=== PATIENT | female | born 1985 | race Caucasian/White ===

== ENCOUNTER 2021-04-18 16:37 | Inpatient (IN) | payer OTHER, SELFPAY ==
--- NOTE | ~2021-04-18 | MR_ITS ---
EXAMINATION: MR ABDOMEN WITHOUT CONTRAST/MRCP CLINICAL INFORMATION: Abdominal pain. Transaminitis. COMPARISON: CT of the abdomen and pelvis and abdominal ultrasound done on 04/18/2021. Initial images of the HIDA study done prior to the MRI study. TECHNIQUE: MR abdomen is performed without gadolinium contrast using MRCP protocol. FINDINGS: LUNG BASES: The visualized lung bases are unremarkable. LIVER, GALLBLADDER, AND BILIARY TREE: The liver is normal in size, smooth in contour, and normal in signal. No focal hepatic lesion or biliary ductal dilatation is present. Multiple gallstones are present without evidence of any wall thickening or pericholecystic fluid, similar to prior studies. Common bile duct measures between 5 to 6 mm, shows progressive smooth distal tapering without evidence of any intraluminal filling defect. Specifically, no evidence of any choledocholithiasis seen. PANCREAS: Unremarkable. SPLEEN: Solitary T2 hyperintense circumscribed well-defined focal lesion is noted measuring 1.6 cm within the inferior posterior medial part of the spleen (image #9 series 6), may represent an incidental cyst versus hemangioma. ADRENAL GLANDS: Unremarkable. KIDNEYS AND URETERS: The kidneys are normal in size and shape. No hydronephrosis. No perinephric stranding. GASTROINTESTINAL TRACT: The visualized bowel loops are unremarkable. ABDOMINAL WALL: Focal bulge is noted in the periumbilical region without evidence of any herniation, better visualized on prior CT study. LYMPH NODES: No lymphadenopathy. VASCULAR: The visualized part of the aorta, inferior vena cava appear unremarkable. OTHER FINDINGS: On the hand folder images, there is a nonspecific T2 hyperintense approximately 3 cm maximum dimension mass identified within the paramedian aspect of the right mid pelvis, when correlating with the prior CT study, most consistent with an enlarged follicle-containing ovary. OSSEOUS STRUCTURES: Marrow signal normal. MR/MR MRCP IMPRESSION: 1. Cholelithiasis without any MR features of acute cholecystitis or biliary obstruction. 2. No MR evidence of choledocholithiasis. 3. Solitary 1.6 cm T2 hyperintense focal lesion within the spleen, may represent incidental cyst versus hemangioma, not optimally characterized on this nonenhanced study. 4. 3 cm maximum dimension T2 hyperintense focus seen within the right side of the mid pelvis, when correlating with prior CT study, most consistent with a right adnexal cyst/enlarged right ovarian follicle. This critical result was discussed with Dr Magana at 12:44 PM on 04/19/2021 and it was ascertained that the content and urgency of the report was understood at the time of direct communication.
--- NOTE | ~2021-04-18 | CT_ITS ---
EXAMINATION: CT ABDOMEN AND PELVIS WITHOUT CONTRAST CLINICAL INFORMATION: Epigastric pain. COMPARISON: None TECHNIQUE: Multidetector volumetric imaging was performed from the superior aspect of the liver through the pubic symphysis. Sagittal and coronal reformatted images were obtained on the technologist's workstation. This CT examination was performed using dose optimization techniques as appropriate, variously including the following: *Automated exposure control *Adjustment of mA and/or kV according to patient size (this includes techniques or standardized protocols for targeted exams where dose is matched to indication/reason for exam; i.e. extremities or head) *Use of iterative reconstruction technique DLP: 543 mGy-cm FINDINGS: LUNG BASES: The visualized lung bases are unremarkable. LIVER, GALLBLADDER, AND BILIARY TREE: The liver is normal in size, shape, and attenuation. No focal hepatic lesion or biliary ductal dilatation is present. There are small calcific gallstones within the gallbladder. No edema around the gallbladder. There is no bile duct dilatation. PANCREAS: Unremarkable. SPLEEN: Unremarkable. ADRENAL GLANDS: Unremarkable. KIDNEYS AND URETERS: The kidneys are normal in size, shape, and attenuation. No hydronephrosis, hydroureter, or calculi seen. No perinephric stranding. BLADDER: Unremarkable. GASTROINTESTINAL TRACT: The small and large bowel are unremarkable. The appendix is nonvisualized. ABDOMINAL WALL: Bulge of the anterior abdominal wall fascia without herniation of bowel. LYMPH NODES: No significant lymphadenopathy. VASCULAR: There is a small vascular calcification in the retroperitoneum anterior to the right iliopsoas muscle axial image 48/80 series 3. This is not a ureteral stone. PELVIC VISCERA: Right adnexal cyst measuring 2.8 cm. Density measurement 3 Hounsfield units. Simple fluid. OSSEOUS STRUCTURES: Unremarkable. CT/CT abdomen pelvis wo con IMPRESSION: 1. Cholelithiasis. No acute change of gallbladder. 2. Right adnexal simple cyst.
--- NOTE | ~2021-04-18 | NM_ITS ---
EXAMINATION: BILIARY TRACT IMAGING STUDY CLINICAL INDICATION: Abdominal pain. COMPARISON: CT scan of the abdomen and pelvis done on 04/18/2021, right upper quadrant abdominal ultrasound done on 04/18/2021, and MRCP done on 04/19/2021 TECHNIQUE: Scintillation camera images were obtained over the abdomen for an observation of 4 hours following the intravenous administration of 5 millicuries technetium technetium 99m labeled Mebrofenin. Initial images were obtained for 60 minutes without visualization of the biliary tree or bowel. Subsequently additional 60 minutes images were also obtained followed by 5 mm images were obtained at 4 hours post radiotracer injection. FINDINGS: There is good concentration of activity in the liver by 5 minutes post injection. Persistent homogenous distribution of the radiotracer is noted throughout the liver without evidence of any excretion of radiotracer into the biliary tree up to 4 hours post radiotracer injection. Specifically, no evidence of any visualization of the biliary tree, gallbladder or small bowel is seen throughout the examination up to 4 hours post injection. NM/NM hepatobiliary wo pharm IMPRESSION: Nonvisualized biliary tree with good visualization of the liver ( liver scan sign ) is indicative of complete biliary obstruction, either intrahepatic or extrahepatic. Please note that based on this biliary tract nuclear imaging pattern, both intra as well as extrahepatic obstruction will have indistinguishable pattern. When correlating with prior MRCP findings, the site of obstruction is likely secondary to intrahepatic cholestasis. A 24-hour follow-up imaging may also be considered for further clarification if clinically appropriate.
--- NOTE | ~2021-04-18 | US_ITS ---
EXAMINATION: US ABDOMEN LIMITED CLINICAL INFORMATION: Choledocholithiasis.. COMPARISON: CT abdomen/pelvis dated 04/18/2021 TECHNIQUE: Real-time imaging of the right upper quadrant abdominal viscera. FINDINGS: PANCREAS: Normal. LIVER: Normal. The liver is normal in size. The liver contour is normal. Parenchymal echogenicity is normal. No focal hepatic lesion. There is no intrahepatic biliary duct dilatation seen. GALLBLADDER: Multiple small stones and sludge present within the gallbladder. No gallbladder wall thickening or pericholecystic fluid. Sonographic Bowers sign is negative. COMMON BILE DUCT: Normal in caliber measuring 0.7 cm in diameter. FREE FLUID: None. US/US abdomen limited IMPRESSION: Cholelithiasis without sonographic evidence of cholecystitis.
[2021-04-18 16:55] VITALS: BP 119/79; PULSE 67; RESP 16; TEMP 37.3; O2SAT 100; BMI 31.7
--- NOTE | 2021-04-18 18:31 | ED_ITS ---
HPI - Abdominal Pain General Chief Complaint: Abdominal Pain Stated Complaint: rt abd pain Time Seen by Provider: 04/18/21 18:21 Source: patient Mode of arrival: ambulatory Limitations: no limitations History of Present Illness HPI narrative: Patient is a 36-year-old female with no significant past medical history who presents with 2 weeks of epigastric pain that radiates to her back. She states it is worse when she goes to bed and lies flat and it has been getting worse since this morning. She endorses nausea but no vomiting. She denies chest pain shortness of breath headache dizziness and diarrhea. She d enies having history of kidney stones. She states that her urine has gotten a bit darker the past day but denies any urinary symptoms. Related Data Previous Rx's Medication Instructions Recorded ondansetron HCl 8 mg tablet 8 mg PO Q12H 30 Days #60 tab 12/26/20 loratadine 10 mg tablet 10 mg PO DAILY PRN 90 Days #90 tab 02/18/21 fluticasone propionate 50 1 spray INTRANASAL DAILY #48 ml 02/21/21 mcg/actuation nasal spray,suspension Allergies Allergy/AdvReac Type Severity Reaction Status Date / Time No Known Allergies Allergy Verified 04/18/21 19:04 Review of Systems Review of Systems Yes all other systems are reviewed and are negative Physical Exam Vital Signs: Vital Signs: Last Vital Signs Temp 98.4 F 04/19/21 01:12 Pulse 79 04/19/21 01:12 Resp 18 04/19/21 01:12 BP 131/81 04/19/21 01:12 Pulse Ox 100 04/19/21 01:12 Body Mass Index 31.7 Const: General: cooperative, healthy appearing, comfortable, no acute distress and well developed Orientation/consciousness: patient oriented x3 Limitations: no limitations HENMT: Head: Yes normal to inspection Eyes: General: appearance normal, both eyes and all related structures Neck: Neck: Yes normal visual inspection and Yes full ROM Resp: Effort & Inspection: normal respiratory effort and able to speak in complete sentences Auscultation: clear to auscultation bilaterally Cardio: Rate: regular rate Rhythm: regular rhythm Heart sounds: normal S1 and S2 GI: Inspection: Yes normal to inspection Palpation (GI): Soft to palpation and Tenderness to palpation present (GI) in the epigastrum : General: Yes no CVA tenderness Back/Spine/Pelvis: Back: no CVA tenderness Skin: General skin exam: no rashes or lesions noted Neuro: General: patient oriented x3 Extrem: General: Yes normal to inspection Course Course Course Narrative: Patient is a 36-year-old female with no significant past medical history who presents with 2 weeks of epigastric pain that radiates to her back. VSS, will get UA, labs including lipase and CT Scan abd and pelvis. Reevaluation(s) Reevaluation #1: Liver labs elevated, CT showed cholelithiasis but not cholecystitis, discussed with Dr Ratliff, she ? choledocolithiasis, will get US to r/o. Time: 22:28 Reevaluation #2: ultrasound showed no choledocholithiasis, patient may have p assed a stone so we will repeat the liver labs Time: 23:31 Reevaluation #3: liver labs are worsening, Tylenol level is negative. I spoke with GI on-call doctor, Dr. Baker, he recommended admission with MRI HIDA scan and hepatitis panel. Text to hospitalist for admission Time: 00:56 MDM - Abdominal Pain Lab Data Result diagrams: 04/18/21 19:00 04/18/21 18:59 Labs: Lab Results 04/18/21 04/18/21 04/18/21 Range/Units 18:58 18:59 18:59 WBC (4.8-10.8) X10*3/uL RBC (4.20-5.50) X10*6/uL Hgb (12.0-16.0) g/dl Hct (37-47) % MCV (80-98) fL MCH (27.0-33.0) pg MCHC (31.0-35.0) g/dl RDW (11.0-16.0) % Plt Count (160-400) X10*3/uL MPV (9.4-12.3) fL Immature Gran % (Auto) (0.0-0.4) % Neut % (Auto) (45-73) % Lymph % (Auto) (20-40) % [place] % (Auto) (2-11) % Eos % (Auto) (0-4) % Baso % (Auto) (0-2) % Lymph # (Auto) (1.2-4.9) X10*3/uL [place] # (Auto) (0.1-1.2) X10*3/uL Eos # (Auto) (0.0-0.4) X10*3/uL Baso # (Auto) (0.0-0.2) X10*3/uL Abs Immat Gran (auto) (0.00-0.03) X10*3/uL Absolute Neuts (auto) (2.0-8.3) X10*3/uL Absolute Nucleated RBC (0.0-0.012) X10*3/uL Nucleated RBC % (auto) (0.0-0.2) /100WBC Hold Purple Top Sodium 140 (135-145) mmol/L Potassium 4.3 (3.3-5.1) mmol/L Chloride 109 H (96-108) mmol/L Carbon Dioxide 22 (22-29) mmol/L Anion Gap 13 (12-20) BUN 8 L (9-16) mg/dL Creatinine 0.66 (0.5-1.4) mg/dL Estim Creat Clear Calc 103.1 Estimated GFR > 60 Random Glucose 98 (60-115) mg/dL Calcium 9.6 (8.4-10.2) mg/dL Total Bilirubin 2.9 H (0.0-1.0) mg/dL Direct Bilirubin 1.9 H (0.0-0.5) mg/dL AST 302 H (5-31) U/L ALT 277 H (0-31) U/L Alkaline Phosphatase 122 H (39-117) U/L Total Protein 7.2 (6.5-8.0) g/dL Albumin 4.3 (3.5-5.0) g/dL Lipase 23 (8-78) U/L Urine Color DARK YELLOW Urine Appearance CLEAR Urine pH 6.0 (5.0-8.0) Ur Specific [place] 1.025 (1.005-1.025) Urine Protein TRACE (NEG-TRACE) MG/DL Urine Glucose (UA) NEG (NEG) MG/DL Urine Ketones NEG (NEG) MG/DL Urine Blood TRACE (NEG) Urine Nitrite NEG (NEG) Ur Leukocyte Esterase NEG (NEG) Urine RBC 1-4 (0) /HPF Urine WBC 1-4 (0-4) /HPF Ur Squamous Epith Cells 1+ /LPF Calcium Oxalate Crystal TRACE /LPF Urine Bacteria 1+ /LPF Urine Mucus 2+ /LPF Urine Test (NEGATIVE) Acetaminophen (<30) mcg/mL 04/18/21 04/18/21 04/18/21 Range/Units 19:00 19:00 20:33 WBC 6.6 (4.8-10.8) X10*3/uL RBC 4.29 (4.20-5.50) X10*6/uL Hgb 13.7 (12.0-16.0) g/dl Hct 39.5 (37-47) % MCV 92.1 (80-98) fL MCH 31.9 (27.0-33.0) pg MCHC 34.7 (31.0-35.0) g/dl RDW 11.9 (11.0-16.0) % Plt Count 285 (160-400) X10*3/uL MPV 9.3 L (9.4-12.3) fL Immature Gran % (Auto) 0.2 (0.0-0.4) % Neut % (Auto) 73.8 H (45-73) % Lymph % (Auto) 16.8 L (20-40) % [place] % (Auto) 8.3 (2-11) % Eos % (Auto) 0.6 (0-4) % Baso % (Auto) 0.3 (0-2) % Lymph # (Auto) 1.1 L (1.2-4.9) X10*3/uL [place] # (Auto) 0.6 (0.1-1.2) X10*3/uL Eos # (Auto) 0.0 (0.0-0.4) X10*3/uL Baso # (Auto) 0.0 (0.0-0.2) X10*3/uL Abs Immat Gran (auto) 0.01 (0.00-0.03) X10*3/uL Absolute Neuts (auto) 4.9 (2.0-8.3) X10*3/uL Absolute Nucleated RBC 0.000 (0.0-0.012) X10*3/uL Nucleated RBC % (auto) 0.0 (0.0-0.2) /100WBC Hold Purple Top SEE NOTE Sodium (135-145) mmol/L Potassium (3.3-5.1) mmol/L Chloride (96-108) mmol/L Carbon Dioxide (22-29) mmol/L Anion Gap (12-20) BUN (9-16) mg/dL Creatinine (0.5-1.4) mg/dL Estim Creat Clear Calc Estimated GFR Random Glucose (60-115) mg/dL Calcium (8.4-10.2) mg/dL Total Bilirubin (0.0-1.0) mg/dL Direct Bilirubin (0.0-0.5) mg/dL AST (5-31) U/L ALT (0-31) U/L Alkaline Phosphatase (39-117) U/L Total Protein (6.5-8.0) g/dL Albumin (3.5-5.0) g/dL Lipase (8-78) U/L Urine Color Urine Appearance Urine pH (5.0-8.0) Ur Specific [place] (1.005-1.025) Urine Protein (NEG-TRACE) MG/DL Urine Glucose (UA) (NEG) MG/DL Urine Ketones (NEG) MG/DL Urine Blood (NEG) Urine Nitrite (NEG) Ur Leukocyte Esterase (NEG) Urine RBC (0) /HPF Urine WBC (0-4) /HPF Ur Squamous Epith Cells /LPF Calcium Oxalate Crystal /LPF Urine Bacteria /LPF Urine Mucus /LPF Urine Test NEGATIVE (NEGATIVE) Acetaminophen (<30) mcg/mL 04/18/21 Range/Units 23:52 WBC (4.8-10.8) X10*3/uL RBC (4.20-5.50) X10*6/uL Hgb (12.0-16.0) g/dl Hct (37-47) % MCV (80-98) fL MCH (27.0-33.0) pg MCHC (31.0-35.0) g/dl RDW (11.0-16.0) % Plt Count (160-400) X10*3/uL MPV (9.4-12.3) fL Immature Gran % (Auto) (0.0-0.4) % Neut % (Auto) (45-73) % Lymph % (Auto) (20-40) % [place] % (Auto) (2-11) % Eos % (Auto) (0-4) % Baso % (Auto) (0-2) % Lymph # (Auto) (1.2-4.9) X10*3/uL [place] # (Auto) (0.1-1.2) X10*3/uL Eos # (Auto) (0.0-0.4) X10*3/uL Baso # (Auto) (0.0-0.2) X10*3/uL Abs Immat Gran (auto) (0.00-0.03) X10*3/uL Absolute Neuts (auto) (2.0-8.3) X10*3/uL Absolute Nucleated RBC (0.0-0.012) X10*3/uL Nucleated RBC % (auto) (0.0-0.2) /100WBC Hold Purple Top Sodium (135-145) mmol/L Potassium (3.3-5.1) mmol/L Chloride (96-108) mmol/L Carbon Dioxide (22-29) mmol/L Anion Gap (12-20) BUN (9-16) mg/dL Creatinine (0.5-1.4) mg/dL Estim Creat Clear Calc Estimated GFR Random Glucose (60-115) mg/dL Calcium (8.4-10.2) mg/dL Total Bilirubin 4.0 H (0.0-1.0) mg/dL Direct Bilirubin 2.7 H (0.0-0.5) mg/dL AST 311 H (5-31) U/L ALT 334 H (0-31) U/L Alkaline Phosphatase 130 H (39-117) U/L Total Protein 7.1 (6.5-8.0) g/dL Albumin 4.2 (3.5-5.0) g/dL Lipase (8-78) U/L Urine Color Urine Appearance Urine pH (5.0-8.0) Ur Specific [place] (1.005-1.025) Urine Protein (NEG-TRACE) MG/DL Urine Glucose (UA) (NEG) MG/DL Urine Ketones (NEG) MG/DL Urine Blood (NEG) Urine Nitrite (NEG) Ur Leukocyte Esterase (NEG) Urine RBC (0) /HPF Urine WBC (0-4) /HPF Ur Squamous Epith Cells /LPF Calcium Oxalate Crystal /LPF Urine Bacteria /LPF Urine Mucus /LPF Urine Test (NEGATIVE) Acetaminophen 2 (<30) mcg/mL Discharge Plan Discharge Clinical Impression: Acute hepatitis Patient Disposition: Admitted As Inpatient FORMERLY [facility], [facility]–1983 Past Medical History Medical History No known health problems Social History Social History Alcohol intake: current Alcohol intake frequency: holidays/special occasions only Patient Tobacco Use Status: Never used Tobacco Use of substances other than those prescribed or required for medical reasons: No Advance Directives: No Advance Directives Information Provided: No Patient : No
[2021-04-18 19:02] VITALS: BP 140/85; PULSE 77; RESP 18; TEMP 37.2; O2SAT 100
[2021-04-18 19:05] LABS: Basophils Percent Auto 0.3 % (0-2); Eosinophils Percent Auto 0.6 % (0-4); Hematocrit 39.5 % (37-47); Hemoglobin 13.7 g/dl (12.0-16.0); Imm Gran Abs Auto 0.01 X10*3/uL (0.00-0.03); Imm Gran Pct Auto 0.2 % (0.0-0.4); Lymphocytes Absolute Auto 1.1 X10*3/uL (1.2-4.9); Lymphocytes Percent Auto 16.8 % (20-40); MANUAL DIFF FLAG NO; Mean Corpuscular HGB Conc 34.7 g/dl (31.0-35.0); Mean Corpuscular Hemoglobin 31.9 pg (27.0-33.0); Mean Corpuscular Volume 92.1 fL (80-98); Mean Platelet Volume 9.3 fL (9.4-12.3); Monocytes Absolute Auto 0.6 X10*3/uL (0.1-1.2); Monocytes Percent Auto 8.3 % (2-11); Neutrophils Absolute Auto 4.9 X10*3/uL (2.0-8.3); Neutrophils Percent Auto 73.8 % (45-73); Platelet Count 285 X10*3/uL (160-400); Red Blood Count 4.29 X10*6/uL (4.20-5.50); Red Cell Distribution Width 11.9 % (11.0-16.0); White Blood Count 6.6 X10*3/uL (4.8-10.8)
[2021-04-18 19:10] LABS: Glucose Urine UA NEG (NEG); Leukocyte Esterase Urine NEG (NEG); Nitrite Urine NEG (NEG); Specific Gravity - Urine 1.025 (1.005-1.025); Urine Blood TRACE (NEG); Urine Ketones NEG (NEG); Urine Protein TRACE MG/DL (NEG-TRACE)
[2021-04-18 19:13] LABS: Appearance Urine CLEAR; Color Urine DARK YELLOW
[2021-04-18 19:28] LABS: Anion Gap 13 (12-20); Blood Urea Nitrogen 8 mg/dL (9-16); Calcium 9.6 mg/dL (8.4-10.2); Carbon Dioxide 22 mmol/L (22-29); Chloride 109 mmol/L (96-108); Creatinine Clr Calc Pharmacy 103.1; Estimated Glomerular Filt Rate > 60; Glucose Random 98 mg/dL (60-115); Potassium 4.3 mmol/L (3.3-5.1); Sodium 140 mmol/L (135-145)
[2021-04-18 19:33] LABS: Alanine Aminotransferase 277 U/L (0-31); Albumin Level 4.3 g/dL (3.5-5.0); Alkaline Phosphatase 122 U/L (39-117); Aspartate Amino Transferase 302 U/L (5-31); Bilirubin Direct 1.9 mg/dL (0.0-0.5); Bilirubin Total 2.9 mg/dL (0.0-1.0); Total Protein 7.2 g/dL (6.5-8.0)
[2021-04-18 19:41] LABS: Bacteria Urine 1+ /LPF; Calcium Oxalate Crystals Urine TRACE /LPF; Mucus Urine 2+ /LPF; Squamous Epithelial Cell Urine 1+ /LPF
[2021-04-18 20:40] LABS: UPreg QC Valid YES; Urine Pregnancy NEGATIVE (NEGATIVE)
[2021-04-18 23:02] VITALS: BP 110/75; PULSE 67; RESP 18; TEMP 37; O2SAT 99
[2021-04-18 23:02] LABS: Lipase 23 U/L (8-78)
[2021-04-19] VITALS (11 sets, daily range): BP systolic 103–131; BP diastolic 50–81; PULSE 50–106; RESP 14–18; TEMP 35.6–37; O2SAT 97–100
[2021-04-19 00:23] LABS: Alanine Aminotransferase 334 U/L (0-31); Albumin Level 4.2 g/dL (3.5-5.0); Alkaline Phosphatase 130 U/L (39-117); Aspartate Amino Transferase 311 U/L (5-31); Bilirubin Direct 2.7 mg/dL (0.0-0.5); Total Protein 7.1 g/dL (6.5-8.0)
[2021-04-19 00:51] LABS: Acetaminophen LAB 2 mcg/mL (<30)
[2021-04-19] MEDS: Lactated Ringers 1,000 ML 999 ML IV ×2 (01:18→02:29)
[2021-04-19 01:34] LABS: MANUAL DIFF FLAG NO
[2021-04-19 01:36] LABS: Basophils Percent Auto 0.5 % (0-2); Eosinophils Absolute Auto 0.1 X10*3/uL (0.0-0.4); Hematocrit 38.6 % (37-47); Hemoglobin 13.5 g/dl (12.0-16.0); Imm Gran Abs Auto 0.02 X10*3/uL (0.00-0.03); Imm Gran Pct Auto 0.3 % (0.0-0.4); Lymphocytes Absolute Auto 1.3 X10*3/uL (1.2-4.9); Lymphocytes Percent Auto 21.5 % (20-40); Mean Corpuscular Hemoglobin 32.2 pg (27.0-33.0); Mean Corpuscular Volume 92.1 fL (80-98); Mean Platelet Volume 9.5 fL (9.4-12.3); Monocytes Absolute Auto 0.5 X10*3/uL (0.1-1.2); Monocytes Percent Auto 9.1 % (2-11); Neutrophils Absolute Auto 3.9 X10*3/uL (2.0-8.3); Neutrophils Percent Auto 67.6 % (45-73); Platelet Count 285 X10*3/uL (160-400); Red Blood Count 4.19 X10*6/uL (4.20-5.50); Red Cell Distribution Width 11.9 % (11.0-16.0); White Blood Count 5.8 X10*3/uL (4.8-10.8)
[2021-04-19 01:52] LABS: COVID-19 Test Negative (Negative)
--- NOTE | 2021-04-19 05:49 | PM.IMHP ---
History of Present Illness Date of Service: 04/19/21 Chief Complaint: abdominal pain 36-year-old female with no significant past medical history who presents to the hospital with complaints of epigastric abdominal pain. Patient reports that she has been having this pain for a month, pain is epigastric, radiating to the right side as well as to the back, denies any fever but has chills, reports nausea with no vomiting, no diarrhea. Patient reports the pain is intermittent, 10/10, occurs mostly in the middle the night, not associated with food intake. Reports change in the color of her urine today that became dark, reports that the pain today was so severe and non relenting that she decided to come to the hospital. She denies any chest pain, no shortness of breath, no headache or change in vision, no numbness weakness or tingling, no urinary symptoms and no lower extremity edema Vitals are significant for temp of 99.1?, heart rate of 67, respiratory rate of 16, blood pressure 119/79, satting 100% on room air labs are significant for bili of 4.0, direct bili of 2.7, AST of 311, ALT of 334, alk-phos of 130, urine negative, pending hepatitis panel, abdominal CT showed cholelithiasis with no acute changes to the gallbladder, right adnexal simple cyst Abdominal ultrasound showed cholelithiasis without sonographic evidence of cholecystitis patient was discussed with Gastroenterology who recommended admission and obtaining HIDA scan Review of Systems Review of Systems: Yes all other systems are reviewed and are negative [facility] Medical History No known health problems Social History Alcohol intake: current Alcohol intake frequency: holidays/special occasions only Patient Tobacco Use Status: Never used Tobacco Use of substances other than those prescribed or required for medical reasons: No Advance Directives: No Advance Directives Information Provided: No Patient : No Meds Allergies Allergy/AdvReac Type Severity Reaction Status Date / Time No Known Allergies Allergy Verified 04/18/21 19:04 Active Medications: Current Medications Generic Name Dose Route Start Last Admin Trade Name Freq PRN Reason Stop Dose Admin Pharmacy Consult 1 each 04/19/21 01:19 Consult Rx Perform Med Rec MISCELLANE ONCE PRN Consult order Physical Exam Vital Signs and Narrative: Vital Signs: Last Vital Signs Temp 98.4 F 04/19/21 01:12 Pulse 68 04/19/21 03:11 Resp 17 04/19/21 03:11 BP 122/69 04/19/21 03:11 Pulse Ox 98 04/19/21 03:11 Body Mass Index 31.7 Const: General: cooperative and no acute distress Orientation/consciousness: patient oriented x3 Eyes: General: appearance normal, both eyes and all related structures Resp: Effort & Inspection: normal respiratory effort and able to speak in complete sentences Cardio: Rate: regular rate Rhythm: regular rhythm GI: Other: no rebound, no guarding, no tenderness on deep palpation, Bowers sign negative Palpation (GI): Soft to palpation Auscultation: normal bowel sounds Skin: General skin exam: no rashes or lesions noted Neuro: General: patient oriented x3 Cognition (Neuro): normal cognition Extrem: General: Yes normal to inspection and Yes no pedal edema Results Labs CBC and Chem 7: 04/19/21 01:27 04/18/21 18:59 Labs: Laboratory Results - last 24 hr 04/18/21 04/18/21 04/18/21 18:58 18:59 18:59 MCV MCH MCHC RDW Plt Count MPV Immature Gran % (Auto) Neut % (Auto) Lymph % (Auto) [place] % (Auto) Eos % (Auto) Baso % (Auto) Lymph # (Auto) [place] # (Auto) Eos # (Auto) Baso # (Auto) Abs Immat Gran (auto) Absolute Neuts (auto) Absolute Nucleated RBC Nucleated RBC % (auto) Hold Purple Top Anion Gap 13 Estim Creat Clear Calc 103.1 Estimated GFR > 60 Random Glucose 98 Calcium 9.6 Total Bilirubin 2.9 H Direct Bilirubin 1.9 H AST 302 H ALT 277 H Alkaline Phosphatase 122 H Total Protein 7.2 Albumin 4.3 Lipase 23 Urine Color DARK YELLOW Urine Appearance CLEAR Urine pH 6.0 Ur Specific [place] 1.025 Urine Protein TRACE Urine Glucose (UA) NEG Urine Ketones NEG Urine Blood TRACE Urine Nitrite NEG Ur Leukocyte Esterase NEG Urine RBC 1-4 Urine WBC 1-4 Ur Squamous Epith Cells 1+ Calcium Oxalate Crystal TRACE Urine Bacteria 1+ Urine Mucus 2+ Urine Test Acetaminophen COVID-19 (JULY) COVID-19 Clin Com 04/18/21 04/18/21 04/18/21 19:00 19:00 20:33 MCV 92.1 MCH 31.9 MCHC 34.7 RDW 11.9 Plt Count 285 MPV 9.3 L Immature Gran % (Auto) 0.2 Neut % (Auto) 73.8 H Lymph % (Auto) 16.8 L [place] % (Auto) 8.3 Eos % (Auto) 0.6 Baso % (Auto) 0.3 Lymph # (Auto) 1.1 L [place] # (Auto) 0.6 Eos # (Auto) 0.0 Baso # (Auto) 0.0 Abs Immat Gran (auto) 0.01 Absolute Neuts (auto) 4.9 Absolute Nucleated RBC 0.000 Nucleated RBC % (auto) 0.0 Hold Purple Top SEE NOTE Anion Gap Estim Creat Clear Calc Estimated GFR Random Glucose Calcium Total Bilirubin Direct Bilirubin AST ALT Alkaline Phosphatase Total Protein Albumin Lipase Urine Color Urine Appearance Urine pH Ur Specific [place] Urine Protein Urine Glucose (UA) Urine Ketones Urine Blood Urine Nitrite Ur Leukocyte Esterase Urine RBC Urine WBC Ur Squamous Epith Cells Calcium Oxalate Crystal Urine Bacteria Urine Mucus Urine Test NEGATIVE Acetaminophen COVID-19 (JULY) COVID-19 Clin INBEP 04/18/21 04/19/21 04/19/21 23:52 01:27 01:27 MCV 92.1 MCH 32.2 MCHC 35.0 RDW 11.9 Plt Count 285 MPV 9.5 Immature Gran % (Auto) 0.3 Neut % (Auto) 67.6 Lymph % (Auto) 21.5 [place] % (Auto) 9.1 Eos % (Auto) 1.0 Baso % (Auto) 0.5 Lymph # (Auto) 1.3 [place] # (Auto) 0.5 Eos # (Auto) 0.1 Baso # (Auto) 0.0 Abs Immat Gran (auto) 0.02 Absolute Neuts (auto) 3.9 Absolute Nucleated RBC 0.000 Nucleated RBC % (auto) 0.0 Hold Purple Top Anion Gap Estim Creat Clear Calc Estimated GFR Random Glucose Calcium Total Bilirubin 4.0 H Direct Bilirubin 2.7 H AST 311 H ALT 334 H Alkaline Phosphatase 130 H Total Protein 7.1 Albumin 4.2 Lipase Urine Color Urine Appearance Urine pH Ur Specific [place] Urine Protein Urine Glucose (UA) Urine Ketones Urine Blood Urine Nitrite Ur Leukocyte Esterase Urine RBC Urine WBC Ur Squamous Epith Cells Calcium Oxalate Crystal Urine Bacteria Urine Mucus Urine Test Acetaminophen 2 COVID-19 (JULY) Negative COVID-19 Clin Com See Note Imaging Radiologist's Impressions: Impressions Abdomen/Pelvis CT 04/18/21 18:25 IMPRESSION: 1. Cholelithiasis. No acute change of gallbladder. 2. Right adnexal simple cyst. Abdomen Ultrasound 04/18/21 22:27 IMPRESSION: Cholelithiasis without sonographic evidence of cholecystitis. Assessment and Plan (1) Transaminitis: Status: Acute (2) Hyperbilirubinemia: Status: Acute (3) Abdominal pain: Status: Acute this is a 36-year-old female with no significant past medical history presents to the hospital with abdominal pain found to have elevated LFTs # abdominal pain - unclear etiology possibly secondary to cholelithiasis versus cholecystitis - afebrile, no leukocytosis - CT abdomen and CT ultrasound stroke cholelithiasis with no evidence of cholecystitis - will admit to observation, consult GI, will order HIDA scan # transaminitis/acute hepatitis - unclear etiology - will order HIDA scan - hepatitis panel pending - GI consulted # hyperbilirubinemia - as above DVT prophylaxis: Early ambulation Quality Stroke Does the patient have a stroke diagnosis?: No VTE Prior VTE?: No VTE Risk Level:: Medical - low VTE Device Contraindication: Treatment Not Indicated VTE Drug Contraindication: Treatment Not Indicated
[2021-04-19] MEDS: 0.9 % Sodium Chloride Flush 3 ML SYRINGE IVFLUSH ×3 (07:32→23:42)
--- NOTE | 2021-04-19 10:37 | MHC.CM.PN ---
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 [facility] NO SERVICES PT TO ARRANGE TRANSPORTATION. cm WILL FOLLOW FOR A CHANGE IN DISCHARGE NEEDS.
[2021-04-19 16:59] LABS: INTERNATIONAL NORM RATIO 1.1 (0.9-1.1); Prothrombin Time 12.2 SEC (9.9-13.0)
[2021-04-19 17:19] LABS: Gamma Glutamyl Transpeptidase 281 U/L (7-33); Lactate Dehydrogenase 300 U/L (122-220)
[2021-04-19] MEDS: ondansetron HCL 4 MG/2 ML VIAL IVPUSH (19:20)
[2021-04-19] MEDS: Acetaminophen 325 MG TABLET 650 MG PO (19:52)
[2021-04-19] MEDS: Morphine Sulfate 4 MG/ML CARTRIDGE IVPUSH (21:51)
[2021-04-20 03:33] VITALS: BP 103/58; PULSE 70; RESP 16; TEMP 36.4; O2SAT 97
[2021-04-20 05:11] LABS: MANUAL DIFF FLAG NO
[2021-04-20 05:24] LABS: Basophils Percent Auto 0.6 % (0-2); Eosinophils Absolute Auto 0.1 X10*3/uL (0.0-0.4); Eosinophils Percent Auto 2.2 % (0-4); Hematocrit 39.3 % (37-47); Hemoglobin 13.5 g/dl (12.0-16.0); Imm Gran Abs Auto 0.02 X10*3/uL (0.00-0.03); Imm Gran Pct Auto 0.4 % (0.0-0.4); Lymphocytes Absolute Auto 1.2 X10*3/uL (1.2-4.9); Mean Corpuscular HGB Conc 34.4 g/dl (31.0-35.0); Mean Corpuscular Hemoglobin 32.1 pg (27.0-33.0); Mean Corpuscular Volume 93.6 fL (80-98); Mean Platelet Volume 9.7 fL (9.4-12.3); Monocytes Absolute Auto 0.5 X10*3/uL (0.1-1.2); Monocytes Percent Auto 9.5 % (2-11); Neutrophils Absolute Auto 3.6 X10*3/uL (2.0-8.3); Neutrophils Percent Auto 65.3 % (45-73); Platelet Count 280 X10*3/uL (160-400); Red Cell Distribution Width 11.9 % (11.0-16.0); White Blood Count 5.5 X10*3/uL (4.8-10.8)
[2021-04-20 05:43] LABS: Anion Gap 13 (12-20); Blood Urea Nitrogen 8 mg/dL (9-16); Carbon Dioxide 22 mmol/L (22-29); Chloride 108 mmol/L (96-108); Creatinine Clr Calc Pharmacy 109.7; Estimated Glomerular Filt Rate > 60; Glucose Random 87 mg/dL (60-115); Potassium 3.8 mmol/L (3.3-5.1); Sodium 139 mmol/L (135-145)
--- NOTE | 2021-04-20 06:11 | P.CNGI_ITS ---
History of Present Illness Data of Consult Service Date: 04/20/21 Requesting physician: Norberto Magana Primary Care Provider: Nata Campos MD HPI Reason for consult: abdo pain, abn LFT 36-year-old female with no significant past medical history who I am asked to see for evaluation of abdominal pain and raised LFT. She initially presented to the hospital with complaints of 1 month of ruq abdominal pain with radiaiton to right side and the back in a band like fashion. Reflecting back she thinks sx may actually have been there after her and delivery 6 months ago but was not as bad. Associated with nausea but no emesis. Pain intermittent, 10/10 severitiy and worse with food but not movement. She noted that urine was darker. stool color is paler brown, and no pruritus. appetite fair. She denies any chest pain, no shortness of breath, no headache or change in vision, no numbness weakness or tingling, no urinary symptoms and no lower extremity edema. no ocp use, no herbs, no antibiotics in last 6 months. no foreign travel or sick contacts. Admission labs:bili of 4.0, direct bili of 2.7, AST of 311, ALT of 334, alk-phos of 130, INR-nml Imaging: abdominal CT: cholelithiasis with no acute changes to the gallbladder, right adnexal simple cyst Abdominal ultrasound: cholelithiasis without sonographic evidence of cholecystitis, CBD 7 mm. HIDA: No excretion from liver uptake MRI- smooth tapering CBD, gallstones, no masses , Review of Systems Review of Systems: Constitutional : No Weight loss, No Fever, No Chills ENT/Mouth : No sore throat, No Rhinorrhea Eyes: No Swelling, No Redness Cardiovascular : No Chest Pain, No SOB, No Edema Respiratory : No Cough, No Sputum, No Wheezing Gastrointestinal : see HPI Genitourinary : NO Dysuria, No Urinary Frequency, No Hematuria, No Urgency Musculoskeletal : No joint pain, No Myalgias, No Joint Swelling Skin : No Skin Lesions, No rash Neuro : No Weakness, No Numbness, No Dizziness, No Headache Psych : No Anxiety/Panic, No Depression Heme/Lymph: No Bruising, No Lymphadenopathy Endocrine : No Polyuria, No Polydipsia All other systems reviewed and are negative.s Yes all other systems are reviewed and are negative FOR[facility]LY [facility], [facility] Past Medical History Medical History No known health problems Social History Social History Alcohol intake: current Alcohol intake frequency: holidays/special occasions only Patient Tobacco Use Status: Never used Tobacco Use of substances other than those prescribed or required for medical reasons: No Advance Directives: No Advance Directives Information Provided: No Patient : No service: No Current occupational status: employed Meds Allergies Allergy/AdvReac Type Severity Reaction Status Date / Time No Known Allergies Allergy Verified 04/18/21 19:04 Active Medications: Current Medications Generic Name Dose Route Start Last Admin Trade Name Jeovanyq PRN Reason Stop Dose Admin Acetaminophen 650 mg 04/19/21 06:21 04/19/21 19:52 Acetaminophen 325 Mg Tablet PO 650 mg Q6H PRN Administration Pain, Mild (Pain Scale 1-3) Docusate Sodium 100 mg 04/19/21 06:21 Docusate Sodium 100 Mg Capsule PO DAILY PRN Constipation Loratadine 10 mg 04/19/21 06:21 Loratadine 10 Mg Tablet PO DAILY PRN allergy symptoms Morphine Sulfate 4 mg 04/19/21 06:21 04/19/21 21:51 Morphine Sulfate 4 Mg/Ml Cartridge IVPUSH 4 mg Q4H PRN Administration Pain, Severe (Pain Scale 7-10) Ondansetron HCl 4 mg 04/19/21 06:21 04/19/21 19:20 Ondansetron Hcl 4 Mg/2 Ml Vial IVPUSH 4 mg Q8H PRN Administration Nausea and Vomiting Sodium Chloride 3 ml 04/19/21 08:00 04/19/21 23:42 0.9 % Sodium Chloride Flush 3 Ml Syringe IVFLUSH 3 ml QSHIFT EVELIN Administration Physical Exam Vital Signs: Vital Signs: Last Vital Signs Temp 97.6 F 04/20/21 03:33 Pulse 70 04/20/21 03:33 Resp 16 04/20/21 03:33 BP 103/58 L 04/20/21 03:33 Pulse Ox 97 04/20/21 03:33 Body Mass Index 31.7 jaundiced Const: General: cooperative, healthy appearing, comfortable, no acute distress and well developed Orientation/consciousness: patient oriented x3 Limitations: no limitations HENMT: Head: Yes normal to inspection Eyes: General: appearance normal, both eyes and all related structures Neck: Neck: Yes normal visual inspection and Yes full ROM Resp: Effort & Inspection: normal respiratory effort and able to speak in complete sentences Auscultation: clear to auscultation bilaterally Cardio: Rate: regular rate Rhythm: regular rhythm Heart sounds: normal S1 and S2 GI: Other: no rebound, no guarding, + tenderness on deep palpation in RUQ, Bowers sign pos Inspection: Yes normal to inspection Palpation (GI): Soft to palpation and Tenderness to palpation present (GI) in the epigastrum Auscultation: normal bowel sounds : General: Yes no CVA tenderness Back/Spine/Pelvis: Back: no CVA tenderness Skin: General skin exam: no rashes or lesions noted Neuro: General: patient oriented x3 Cognition (Neuro): normal cognition Extrem: General: Yes normal to inspection and Yes no pedal edema Results Labs CBC & Chem 7: 04/20/21 05:01 04/20/21 05:01 Labs: Short CBC 04/20/21 Range/Units 05:01 WBC 5.5 (4.8-10.8) X10*3/uL Hgb 13.5 (12.0-16.0) g/dl Hct 39.3 (37-47) % Plt Count 280 (160-400) X10*3/uL BMP 04/20/21 05:01 Sodium 139 Potassium 3.8 Chloride 108 Carbon Dioxide 22 BUN 8 L Creatinine 0.62 Calcium 9.0 D Liver Function 04/19/21 04/19/21 Range/Units 16:34 16:34 GGT Cancelled 281 H Assessment and Plan (1) Hyperbilirubinemia: Status: Acute (2) Transaminitis: Status: Acute (3) Acute hepatitis: Status: Acute 1/ RUQ pain with radiation to back and worse with food, going on for 6 months but now peaked, suspect she has symptomatic cholelithiasis, I am also concerned she may have a Mirizzi syndrome like picture given no excretion from liver on HIDA. CBD is not dilated on imaging on MRI or US, and no evidence of budd chiari or PSC. DDX: primary liver disorder, e.g autoimmune hepatitis, wilsons, infectious viral hepatitis, small duct PSC INR has remained normal suggesting nml liver synthetic function and no acute live failure PLAN: 1/ await labs as ordered 2/ surgical review 3/ If numbers cont to rise and labs neg then ERCP to r/o CBD occlusion, obstruction, sludge or debris 4/ daily LFT and INR 5/ if any fever then ABX with ceftriazxone and flagyl or zosyn, possibly reimage Procedures Date of Service Date of Service: 04/20/21
[2021-04-20 06:37] LABS: Alanine Aminotransferase 269 U/L (0-31); Albumin Level 3.9 g/dL (3.5-5.0); Alkaline Phosphatase 174 U/L (39-117); Aspartate Amino Transferase 125 U/L (5-31); Bilirubin Direct 4.4 mg/dL (0.0-0.5); Bilirubin Total 6.4 mg/dL (0.0-1.0); Total Protein 6.6 g/dL (6.5-8.0)
[2021-04-20] MEDS: 0.9 % Sodium Chloride Flush 3 ML SYRINGE IVFLUSH ×3 (07:25→23:39)
[2021-04-20 07:52] VITALS: BP 101/48; PULSE 68; RESP 18; TEMP 36.1; O2SAT 98
[2021-04-20 11:52] VITALS: BP 111/68; PULSE 81; RESP 18; TEMP 36; O2SAT 97
[2021-04-20] MEDS: Morphine Sulfate 4 MG/ML CARTRIDGE IVPUSH (13:07)
--- NOTE | 2021-04-20 13:40 | PM.CNGS ---
History of Present Illness Consult details Consult date: 04/20/21 Narrative: 36-year-old female referred for gallstones. 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 She describes this as mostly on the upper abdomen at the epigastric area and right upper quadrant. She says that this actually has been on and off for about 3 months now. She says that there would be some weeks were in she would not have this pain but often times, the would last for several weeks. She describes this as low intensity pain. She denies any nausea or vomiting. She denies any recent unexplained weight loss. She does not describe any generalized pruritus recently. She denies association of the pain with intake of fatty food although she thinks that the pain may be worse with meals. She does not seem to be taking any medications that may cause cholestasis. Review of Systems Constitutional: Constitutional: Denies chills and Denies fever(s) Cardiovascular: Cardiovascular: Denies chest pain, Denies dyspnea and Denies dyspnea on exertion Respiratory: Respiratory: Denies cough, Denies dyspnea and Denies dyspnea on exertion Gastrointestinal: Gastrointestinal: Denies hematochezia and Denies change in bowel habits Genitourinary: Genitourinary: Denies hematuria Musculoskeletal: Musculoskeletal: Denies back pain and Denies limited range of motion Neurologic: Denies focal weakness and Denies convulsions Psychiatric: Psychiatric: Denies depression and Denies mood swings PMFSH Past Medical History Medical History No known health problems Social History Social History Household Members: Children Housing: Apartment Do you presently have visiting nurse or other home services: No Alcohol intake: current Alcohol intake frequency: holidays/special occasions only Patient Tobacco Use Status: Never used Tobacco service: No Current occupational status: employed Meds Allergies Allergy/AdvReac Type Severity Reaction Status Date / Time No Known Allergies Allergy Verified 04/18/21 19:04 Active Medications: Current Medications Generic Name Dose Route Start Last Admin Trade Name Freq PRN Reason Stop Dose Admin Acetaminophen 650 mg 04/19/21 06:21 04/19/21 19:52 Acetaminophen 325 Mg Tablet PO 650 mg Q6H PRN Administration Pain, Mild (Pain Scale 1-3) Docusate Sodium 100 mg 04/19/21 06:21 Docusate Sodium 100 Mg Capsule PO DAILY PRN Constipation Loratadine 10 mg 04/19/21 06:21 Loratadine 10 Mg Tablet PO DAILY PRN allergy symptoms Morphine Sulfate 4 mg 04/19/21 06:21 04/20/21 13:07 Morphine Sulfate 4 Mg/Ml Cartridge IVPUSH 4 mg Q4H PRN Administration Pain, Severe (Pain Scale 7-10) Ondansetron HCl 4 mg 04/19/21 06:21 04/19/21 19:20 Ondansetron Hcl 4 Mg/2 Ml Vial IVPUSH 4 mg Q8H PRN Administration Nausea and Vomiting Sodium Chloride 3 ml 04/19/21 08:00 04/20/21 07:25 0.9 % Sodium Chloride Flush 3 Ml Syringe IVFLUSH 3 ml QSHIFT EVELIN Administration Physical Exam Vital Signs: Vital Signs: Last Vital Signs Temp 96.8 F 04/20/21 11:52 Pulse 81 04/20/21 11:52 Resp 18 04/20/21 11:52 BP 111/68 04/20/21 11:52 Pulse Ox 97 04/20/21 11:52 Body Mass Index 31.7 Const: Other: jaundiced, General: comfortable and no acute distress Orientation/consciousness: patient oriented x3 Neck: Neck: Yes no lymphadenopathy Resp: Auscultation: clear to auscultation bilaterally Cardio: Rhythm: regular rhythm GI: Other: some mild tenderness on the right upper quadrant and epigastric area, no Bowers's sign Palpation (GI): Soft to palpation and no guarding Skin: Other: jaundiced Neuro: General: patient oriented x3 Results Labs Result diagrams: 04/21/21 06:22 04/21/21 06:22 Labs: Abnormal lab results 04/19/21 04/20/21 Range/Units 16:34 05:01 BUN 8 L (9-16) mg/dL Total Bilirubin 6.4 H (0.0-1.0) mg/dL Direct Bilirubin 4.4 H (0.0-0.5) mg/dL GGT 281 H (7-33) U/L AST 125 H (5-31) U/L ALT 269 H (0-31) U/L Alkaline Phosphatase 174 H D (39-117) U/L Lactate Dehydrogenase 300 H (122-220) U/L Short CBC 04/20/21 Range/Units 05:01 WBC 5.5 (4.8-10.8) X10*3/uL Hgb 13.5 (12.0-16.0) g/dl Hct 39.3 (37-47) % Plt Count 280 (160-400) X10*3/uL BMP 04/20/21 05:01 Sodium 139 Potassium 3.8 Chloride 108 Carbon Dioxide 22 BUN 8 L Creatinine 0.62 Calcium 9.0 D Liver Function 04/19/21 04/19/21 04/20/21 Range/Units 16:34 16:34 05:01 Total Bilirubin 6.4 H (0.0-1.0) mg/dL Direct Bilirubin 4.4 H (0.0-0.5) mg/dL GGT Cancelled 281 H AST 125 H (5-31) U/L ALT 269 H (0-31) U/L Alkaline Phosphatase 174 H D (39-117) U/L Albumin 3.9 (3.5-5.0) g/dL Urine 04/18/21 04/18/21 Range/Units 18:58 20:33 Urine Color DARK YELLOW Urine Appearance CLEAR Urine pH 6.0 (5.0-8.0) Ur Specific [place] 1.025 (1.005-1.025) Urine Protein TRACE (NEG-TRACE) MG/DL Urine Glucose (UA) NEG (NEG) MG/DL Urine Test NEGATIVE (NEGATIVE) All other labs normal. Imaging Abdomen CT scan report/results: report reviewed and image reviewed CT scan - pelvis: report reviewed and image reviewed Assessment and Plan (1) Abdominal pain: Status: Acute She has abdominal pain mostly in the right side, with markedly elevated bilirubin and LFTs. Her bilirubin today is 6.4/4.4 which is even higher than yesterday. She has transaminitis as well. I have reviewed her imaging studies her CAT scan and MRI do not show acute cholecystitis. There is no evidence of ductal dilatation that would suggest CBD obstruction. There are no obvious CBD stones. There is no pericholecystic fluid. There is no suggestion of Mirizzi's syndrome on imaging. A HIDA scan has been done but the utility of this is limited and this particular clinical scenario because of the abnormal LFTs. I am uncertain as to the etiology of her jaundice. The AST and ALT are already trending down so it may be that the bilirubin decrease may be lagging behind. This should therefore be followed. She does not have any evidence of cholecystitis so there is no indication for any urgent cholecystectomy. Laparoscopic cholecystectomy may be considered down the line when her bilirubin levels normalize. She does not have any leukocytosis nor fever. Other etiologies of hyperbilirubinemia should be explored including liver parenchymal disease, and cholestasis. I will follow along while she is in the hospital. She otherwise appears to be nonseptic and looks comfortable. Procedures Date of Service Date of Service: 04/20/21
--- NOTE | 2021-04-20 14:14 | MHC.CM.PN ---
PER REVIEW OF REPORTS, NO PLAN FOR DISCHARGE TODAY. CASE MANAGEMENT CONTINUING TO FOLLOW
[2021-04-20 15:15] VITALS: BP 114/56; PULSE 92; RESP 14; TEMP 36.8; O2SAT 97
[2021-04-20] MEDS: ondansetron HCL 4 MG/2 ML VIAL IVPUSH (15:41)
--- NOTE | 2021-04-20 15:53 | P.PNIM_ITS ---
Subjective Subjective Date of Service: 04/20/21 Interval History: the patient was seen and evaluated this morning Laying in bed, feels comfortable overall with no complaints Bilirubin still trending to 6 today Transaminitis might be better Denies any fever, chills or shortness of breath No reported other overnight events. Systemic review: No fever, chills or weakness No chest pain, palpitation No shortness of breath or coughing had an episode of significant abdominal pain, denies vomiting No urinary symptoms No any rash or wounds Physical Exam Vital Signs: Vital Signs: Last Vital Signs Temp 98.2 F 04/20/21 15:15 Pulse 92 04/20/21 15:15 Resp 14 04/20/21 15:15 BP 114/56 L 04/20/21 15:15 Pulse Ox 97 04/20/21 15:15 Body Mass Index 31.7 Const: Other: Constitutional : Alert, oriented, not in distress Neck : Normal inspection, Supple Cardiovascular : RRR, S1 S2, no lower extremity edema Respiratory : Good bilateral air entry, no crackles, wheezes or rhonchi Gastrointestinal: soft, lax, Normal bowel sounds, mild right upper quadrant tenderness with no surgical signs Skin : Warm/Dry, No rash Neurological : Alert & oriented x3, No focal deficit Objective Data Current Medications Generic Name Dose Route Start Last Admin Trade Name Freq PRN Reason Stop Dose Admin Acetaminophen 650 mg 04/19/21 06:21 04/19/21 19:52 Acetaminophen 325 Mg Tablet PO 650 mg Q6H PRN Administration Pain, Mild (Pain Scale 1-3) Docusate Sodium 100 mg 04/19/21 06:21 Docusate Sodium 100 Mg Capsule PO DAILY PRN Constipation Loratadine 10 mg 04/19/21 06:21 Loratadine 10 Mg Tablet PO DAILY PRN allergy symptoms Morphine Sulfate 4 mg 04/19/21 06:21 04/20/21 13:07 Morphine Sulfate 4 Mg/Ml Cartridge IVPUSH 4 mg Q4H PRN Administration Pain, Severe (Pain Scale 7-10) Ondansetron HCl 4 mg 04/19/21 06:21 04/20/21 15:41 Ondansetron Hcl 4 Mg/2 Ml Vial IVPUSH 4 mg Q8H PRN Administration Nausea and Vomiting Sodium Chloride 3 ml 04/19/21 08:00 04/20/21 07:25 0.9 % Sodium Chloride Flush 3 Ml Syringe IVFLUSH 3 ml QSHIFT [facility] Administration Labs CBC & Chem 7: 04/20/21 05:01 04/20/21 05:01 Labs: Laboratory Results - last 24 hr 04/19/21 04/19/21 04/19/21 01:30 16:34 16:34 WBC RBC Hgb Hct MCV MCH MCHC RDW Plt Count MPV Immature Gran % (Auto) Neut % (Auto) Lymph % (Auto) [place] % (Auto) Eos % (Auto) Baso % (Auto) Lymph # (Auto) [place] # (Auto) Eos # (Auto) Baso # (Auto) Abs Immat Gran (auto) Absolute Neuts (auto) Absolute Nucleated RBC Nucleated RBC % (auto) PT 12.2 INR 1.1 Sodium Potassium Chloride Carbon Dioxide Anion Gap BUN Creatinine Estim Creat Clear Calc Estimated GFR Random Glucose Calcium Total Bilirubin Direct Bilirubin GGT Cancelled AST ALT Alkaline Phosphatase Lactate Dehydrogenase Total Protein Albumin HIV 1&2 Ab/P24 Ag 4thGn Cancelled 04/19/21 04/19/21 04/20/21 16:34 16:34 05:01 WBC 5.5 RBC 4.20 Hgb 13.5 Hct 39.3 MCV 93.6 MCH 32.1 MCHC 34.4 RDW 11.9 Plt Count 280 MPV 9.7 Immature Gran % (Auto) 0.4 Neut % (Auto) 65.3 Lymph % (Auto) 22.0 [place] % (Auto) 9.5 Eos % (Auto) 2.2 Baso % (Auto) 0.6 Lymph # (Auto) 1.2 [place] # (Auto) 0.5 Eos # (Auto) 0.1 Baso # (Auto) 0.0 Abs Immat Gran (auto) 0.02 Absolute Neuts (auto) 3.6 Absolute Nucleated RBC 0.000 Nucleated RBC % (auto) 0.0 PT Cancelled INR Cancelled Sodium Potassium Chloride Carbon Dioxide Anion Gap BUN Creatinine Estim Creat Clear Calc Estimated GFR Random Glucose Calcium Total Bilirubin Direct Bilirubin GGT 281 H AST ALT Alkaline Phosphatase Lactate Dehydrogenase 300 H Total Protein Albumin HIV 1&2 Ab/P24 Ag 4thGn 04/20/21 05:01 WBC RBC Hgb Hct MCV MCH MCHC RDW Plt Count MPV Immature Gran % (Auto) Neut % (Auto) Lymph % (Auto) [place] % (Auto) Eos % (Auto) Baso % (Auto) Lymph # (Auto) [place] # (Auto) Eos # (Auto) Baso # (Auto) Abs Immat Gran (auto) Absolute Neuts (auto) Absolute Nucleated RBC Nucleated RBC % (auto) PT INR Sodium 139 Potassium 3.8 Chloride 108 Carbon Dioxide 22 Anion Gap 13 BUN 8 L Creatinine 0.62 Estim Creat Clear Calc 109.7 Estimated GFR > 60 Random Glucose 87 Calcium 9.0 D Total Bilirubin 6.4 H Direct Bilirubin 4.4 H GGT AST 125 H ALT 269 H Alkaline Phosphatase 174 H D Lactate Dehydrogenase Total Protein 6.6 Albumin 3.9 HIV 1&2 Ab/P24 Ag 4thGn Quality Stroke Does the patient have a stroke diagnosis?: No VTE Prior VTE?: No VTE Risk Level:: Medical - low VTE Device Contraindication: Treatment Not Indicated VTE Drug Contraindication: Treatment Not Indicated Assessment and Plan (1) Transaminitis: Status: Acute (2) Hyperbilirubinemia: Status: Acute (3) Abdominal pain: Status: Acute Assessment and Plan: this is a 36-year-old female with no significant past medical history presents to the hospital with abdominal pain found to have elevated LFTs # abdominal pain possibly secondary to cholelithiasis afebrile, no leukocytosis CT abdomen and CT ultrasound stroke cholelithiasis with no evidence of cholecystitis HIDA scan utility at this situation is limited as the studies showing complete. We obstruction MRCP negative for any CBD stones Hold on antibiotics for now # transaminitis # hyperbilirubinemia concern for autoimmune, inflammatory, intrahepatic cholestasis or stone that is not shown pending Autoimmune markers hepatitis panel pending GI input appreciated, if numbers continue to rise will do ERCP # gallbladder stones Surgery input appreciated, no intervention needed at this point continue to monitor DVT prophylaxis: Early ambulation
[2021-04-20 19:13] VITALS: BP 110/57; PULSE 67; RESP 14; TEMP 36.8; O2SAT 97
[2021-04-20 23:40] VITALS: BP 110/51; PULSE 50; RESP 15; TEMP 36.1; O2SAT 99
[2021-04-21 03:44] VITALS: BP 109/56; PULSE 60; RESP 14; TEMP 36.3; O2SAT 98
[2021-04-21 06:47] LABS: Prothrombin Time 11.9 SEC (9.9-13.0)
[2021-04-21 06:48] LABS: Hematocrit 41.3 % (37-47); Hemoglobin 14.1 g/dl (12.0-16.0); Mean Corpuscular HGB Conc 34.1 g/dl (31.0-35.0); Mean Corpuscular Hemoglobin 31.8 pg (27.0-33.0); Mean Corpuscular Volume 93.2 fL (80-98); Mean Platelet Volume 9.7 fL (9.4-12.3); Platelet Count 295 X10*3/uL (160-400); Red Blood Count 4.43 X10*6/uL (4.20-5.50); Red Cell Distribution Width 11.9 % (11.0-16.0); White Blood Count 5.4 X10*3/uL (4.8-10.8)
[2021-04-21 07:25] LABS: Alanine Aminotransferase 215 U/L (0-31); Albumin Level 4.1 g/dL (3.5-5.0); Alkaline Phosphatase 197 U/L (39-117); Anion Gap 16 (12-20); Aspartate Amino Transferase 67 U/L (5-31); Bilirubin Direct 1.2 mg/dL (0.0-0.5); Bilirubin Total 2.1 mg/dL (0.0-1.0); Blood Urea Nitrogen 8 mg/dL (9-16); Calcium 9.4 mg/dL (8.4-10.2); Carbon Dioxide 18 mmol/L (22-29); Chloride 109 mmol/L (96-108); Creatinine Clr Calc Pharmacy 106.3; Estimated Glomerular Filt Rate > 60; Glucose Random 87 mg/dL (60-115); Lactate Dehydrogenase 199 U/L (122-220); Potassium 4.2 mmol/L (3.3-5.1); Sodium 139 mmol/L (135-145)
[2021-04-21 07:42] VITALS: BP 102/60; PULSE 74; RESP 18; TEMP 36.1; O2SAT 98
[2021-04-21 08:11] LABS: HIV AB/AG Nonreactive (Nonreactive); HIV Num 1 0.57 S/CO (0.00-0.99)
[2021-04-21 08:21] LABS: HBS Num1 > 1000.00 mIU/mL (0-7.99); HBsAGNum1 0.35 S/CO (0.00-0.99); Hepatitis B Surface Antigen Negative (Negative); ~Hepatitis B Surface Antibody REACTIVE (Nonreactive)
[2021-04-21 08:30] LABS: Hepatitis B Core Antibody Nonreactive (Nonreactive); ~Hepatitis C Antibody Nonreactive (Nonreactive)
--- NOTE | 2021-04-21 10:14 | P.DS_ITS ---
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 for your eval DS: Diagnosis Discharge Diagnosis (1) Transaminitis: Status: Acute (2) Hyperbilirubinemia: Status: Acute (3) Abdominal pain: Status: Acute (4) Acute hepatitis: Status: Acute (5) Gallbladder stone without cholecystitis or obstruction: Status: Acute DS: Medications Discharge Medications Home Medications: Previous Rx's Medication Instructions Recorded loratadine 10 mg tablet 10 mg PO DAILY PRN 90 Days #90 tab 02/18/21 DS: Summary Hospital Course Hospital Course: admission note HPI 36-year-old female with no significant past medical history who presents to the hospital with complaints of epigastric abdominal pain. Patient reports that she has been having this pain for a month, pain is epigastric, radiating to the right side as well as to the back, denies any fever but has chills, reports nausea with no vomiting, no diarrhea. Patient reports the pain is intermittent, 10/10, occurs mostly in the middle the night, not associated with food intake. Reports change in the color of her urine today that became dark, reports that the pain today was so severe and non relenting that she decided to come to the hospital. She denies any chest pain, no shortness of breath, no headache or change in vision, no numbness weakness or tingling, no urinary symptoms and no lower extremity edema Vitals are significant for temp of 99.1?, heart rate of 67, respiratory rate of 16, blood pressure 119/79, satting 100% on room air labs are significant for bili of 4.0, direct bili of 2.7, AST of 311, ALT of 334, alk-phos of 130, urine negative, pending hepatitis panel, abdominal CT showed cholelithiasis with no acute changes to the gallbladder, right adnexal simple cyst Abdominal ultrasound showed cholelithiasis without sonographic evidence of cholecystitis Hospital course The patient was admitted to the hospital for evaluation of abdominal pain and elevated liver enzymes and bilirubin. Images were done CT abdomen and CT ultrasound stroke cholelithiasis with no evidence of cholecystitis. HIDA scan utility at this situation is limited as the studies showing complete obstruction at the gallbladder level but the reading with transaminitis is not very suggestive. MRCP negative for any CBD stones . Liver enzymes trended down since presentation but bilirubin went from 2-6 before going down back to 2 with suggestive of possibly passing stone. She tested negative for hepatitis-B and C but still Hep A antigen pending. The patient was evaluated by Gastroenterology and General surgery who recommended no intervention needed at this point. Once her bilirubin started to drop down decision was made to center home to follow-up with general surgery as outpatient for elective laparoscopic cholecystectomy. Pending blood test for autoimmune diseases still pending and to be followed by Gastroenterology as outpatient. Time Spent with Patient Time attestation: Total time spent providing and/or coordinating discharge services: Discharge coordination time: Greater than 30 minutes Quality: Stroke Does the patient have a stroke diagnosis?: No Physical Exam Vital Signs: Vital Signs: Last Vital Signs Temp 96.9 F 04/21/21 07:42 Pulse 74 04/21/21 07:42 Resp 18 04/21/21 07:42 BP 102/60 04/21/21 07:42 Pulse Ox 98 04/21/21 07:42 Body Mass Index 31.7 Const: Other: Constitutional : Alert, oriented, not in distress Neck : Normal inspection, Supple Cardiovascular : RRR, S1 S2, no lower extremity edema Respiratory : Good bilateral air entry, no crackles, wheezes or rhonchi Gastrointestinal: soft, lax, Normal bowel sounds, Non tender Skin : Warm/Dry, No rash Neurological : Alert & oriented x3, No focal deficit DS: Data Data Completed and Pending Labs on day of discharge: Laboratory Results - last 24 hr 04/19/21 04/19/21 04/21/21 01:30 16:34 06:22 WBC 5.4 RBC 4.43 Hgb 14.1 Hct 41.3 MCV 93.2 MCH 31.8 MCHC 34.1 RDW 11.9 Plt Count 295 MPV 9.7 Absolute Nucleated RBC 0.000 Nucleated RBC % (auto) 0.0 PT INR Sodium Potassium Chloride Carbon Dioxide Anion Gap BUN Creatinine Estim Creat Clear Calc Estimated GFR Random Glucose Calcium Total Bilirubin Direct Bilirubin AST ALT Alkaline Phosphatase Lactate Dehydrogenase Total Protein Albumin Hep Bs Antigen Negative Hep Bs Antibody REACTIVE Hep B Core Total Ab Nonreactive Hepatitis C Ab (EIA) Nonreactive HIV 1&2 Ab/P24 Ag 4thGn Nonreactive 04/21/21 04/21/21 04/21/21 06:22 06:22 06:22 WBC RBC Hgb Hct MCV MCH MCHC RDW Plt Count MPV Absolute Nucleated RBC Nucleated RBC % (auto) PT 11.9 INR 1.0 Sodium 139 Potassium 4.2 Chloride 109 H Carbon Dioxide 18 L Anion Gap 16 BUN 8 L Creatinine 0.64 Estim Creat Clear Calc 106.3 Estimated GFR > 60 Random Glucose 87 Calcium 9.4 Total Bilirubin 2.1 H Direct Bilirubin 1.2 H AST 67 H ALT 215 H Alkaline Phosphatase 197 H Lactate Dehydrogenase 199 Total Protein 7.0 Albumin 4.1 Hep Bs Antigen Hep Bs Antibody Hep B Core Total Ab Hepatitis C Ab (EIA) HIV 1&2 Ab/P24 Ag 4thGn Discharge Plan Discharge Patient Disposition: Home, Self-Care Discharge Diagnosis: Gallbladder stones Referrals: Nata Burton MD [Primary Care Provider] - 1 Week Discharge Medications: Continued loratadine [Allergy Relief (loratadine)] 10 mg tablet 10 mg PO DAILY PRN (Reason: allergy symptoms) 90 Days Qty: 90 RF: 3 Discharge Orders: Discharge Order (Routine); Ordered 04/21/21 Ordered By: Norberto Magana Diet: advance to usual diet and low fat, low cholesterol Activity on Discharge: As tolerated Stand Alone Forms: Patient Portal Discharge page Care Plan Goals: Read below Health Concerns: Read below Plan of Treatment: You were admitted to the hospital for evaluation of abdominal pain. Found to have elevated liver enzymes and bilirubin. Images including ultrasound, CT scan, MRCP and HIDA scan did not show any clear obstruction. You were evaluated by shooter's helper Dr. Baker and general surgeon Dr. Szymanski who recommended no intervention needed at this point with a plan for outpatient follow-up for gallbladder removal. we are still waiting for some blood tests which should be followed as outpatient with the gastroenterology clinic. Assessment: Avoid fatty food Use Advil as needed for the pain, take it with meals To follow-up as outpatient with both shooter's helper Dr. Baker and general surgeon Dr. Szymanski after calling for an appointment.
--- NOTE | 2021-04-21 10:21 | MHC.CM.PN ---
PATIENT IS DISCHARGED HOME - SELF CARE. RN AWARE OF PLAN. PATIENT IS ABLE TO SELF ARRANGE FOR TRANSPORT.
--- NOTE | 2021-04-21 10:54 | PM.PNGS ---
Subjective Subjective Date of Service: 04/21/21 Interval history: She feels well today denies any abdominal pain tolerating diet well Physical Exam Vital Signs: Vital Signs: Last Vital Signs Temp 96.9 F 04/21/21 07:42 Pulse 74 04/21/21 07:42 Resp 18 04/21/21 07:42 BP 102/60 04/21/21 07:42 Pulse Ox 98 04/21/21 07:42 Body Mass Index 31.7 Chemistry 04/18/21 04/20/21 04/21/21 18:59 05:01 06:22 Sodium 140 139 139 Potassium 4.3 3.8 4.2 Carbon Dioxide 22 22 18 L BUN 8 L 8 L 8 L Creatinine 0.66 0.62 0.64 Calcium 9.6 9.0 D 9.4 Hematology 04/18/21 04/19/21 04/20/21 19:00 01:27 05:01 WBC 6.6 5.8 5.5 Hgb 13.7 13.5 13.5 Plt Count 285 285 280 04/21/21 06:22 WBC 5.4 Hgb 14.1 Plt Count 295 Urinalysis 04/18/21 18:58 Urine Color DARK YELLOW Urine Appearance CLEAR Urine pH 6.0 Ur Specific Gravit y 1.025 Urine Protein TRACE Urine Glucose (UA) NEG Urine Ketones NEG Urine Blood TRACE Urine Nitrite NEG Ur Leukocyte Corazon ase NEG Urine RBC 1-4 Urine WBC 1-4 Ur Squamous Epith Cells 1+ PT 11.9 SEC (9.9-13. 0) 04/21/21 06:22 Laboratory Results - last 24 hr 04/19/21 04/19/21 04/21/21 01:30 16:34 06:22 WBC 5.4 RBC 4.43 Hgb 14.1 Hct 41.3 MCV 93.2 MCH 31.8 MCHC 34.1 RDW 11.9 Plt Count 295 MPV 9.7 Absolute Nucleated RBC 0.000 Nucleated RBC % (a uto) 0.0 PT INR Sodium Potassium Chloride Carbon Dioxide Anion Gap BUN Creatinine Estim Creat Clear Calc Estimated GFR Random Glucose Calcium Total Bilirubin Direct Bilirubin AST ALT Alkaline Phosphata se Lactate Dehydrogen ase Total Protein Albumin Hep Bs Antigen Negative Hep Bs Antibody REACTIVE Hep B Core Total A b Nonreactive Hepatitis C Ab (EI A) Nonreactive HIV 1&2 Ab/P24 Ag 4thGn Nonreactive 04/21/21 04/21/21 04/21/21 06:22 06:22 06:22 WBC RBC Hgb Hct MCV MCH MCHC RDW Plt Count MPV Absolute Nucleated RBC Nucleated RBC % (a uto) PT 11.9 INR 1.0 Sodium 139 Potassium 4.2 Chloride 109 H Carbon Dioxide 18 L Anion Gap 16 BUN 8 L Creatinine 0.64 Estim Creat Clear Calc 106.3 Estimated GFR > 60 Random Glucose 87 Calcium 9.4 Total Bilirubin 2.1 H Direct Bilirubin 1.2 H AST 67 H ALT 215 H Alkaline Phosphata se 197 H Lactate Dehydrogen ase 199 Total Protein 7.0 Albumin 4.1 Hep Bs Antigen Hep Bs Antibody Hep B Core Total A b Hepatitis C Ab (EI A) HIV 1&2 Ab/P24 Ag 4thGn Const: General: comfortable, no acute distress and alert Eyes: Sclerae: sclerae normal Resp: Effort & Inspection: normal respiratory effort Cardio: Rhythm: regular rhythm GI: Inspection: No distended Palpation (GI): Soft to palpation, nontender, no guarding and not rigid Progress Note: A&P Assessment and plan (1) Gallbladder stone without cholecystitis or obstruction: Status: Acute Assessment and Plan: she looks well today completely asymptomatic LFTs much improved, now near normal uncertain if her gallstones were causing her hyperbilirubinemia; it is possible that she may have passed a gallstone she feels well and states that she is going home today - she can see me in the office for follow-up visit Fall Risk Details Current Medications: Current Medications Generic Name Dose Route Start Last Admin Trade Name Jeovanyq PRN Reason Stop Dose Admin Acetaminophen 650 mg 04/19/21 06:21 04/19/21 19:52 Acetaminophen 325 Mg Tablet PO 650 mg Q6H PRN Administration Pain, Mild (Pain Scale 1-3) Docusate Sodium 100 mg 04/19/21 06:21 Docusate Sodium 100 Mg Capsule PO DAILY PRN Constipation Loratadine 10 mg 04/19/21 06:21 Loratadine 10 Mg Tablet PO DAILY PRN allergy symptoms Morphine Sulfate 4 mg 04/19/21 06:21 04/20/21 13:07 Morphine Sulfate 4 Mg/Ml Cartridge IVPUSH 4 mg Q4H PRN Administration Pain, Severe (Pain Scale 7-10) Ondansetron HCl 4 mg 04/19/21 06:21 04/20/21 15:41 Ondansetron Hcl 4 Mg/2 Ml Vial IVPUSH 4 mg Q8H PRN Administration Nausea and Vomiting Sodium Chloride 3 ml 04/19/21 08:00 04/20/21 23:39 0.9 % Sodium Chloride Flush 3 Ml Syringe IVFLUSH 3 ml QSHIFT EVELIN Administration Time Spent With Patient Time: Total time spent is greater than 50% in coordination of care (as documented) at patient's floor/unit and/or counseling patient: Time with patient: 15 - 24 minutes Procedures Date of Service Date of Service: 04/21/21 Quality Stroke Does the patient have a stroke diagnosis?: No VTE Prior VTE?: No VTE Risk Level:: Medical - low VTE Device Contraindication: Treatment Not Indicated VTE Drug Contraindication: Treatment Not Indicated
[2021-04-21 12:02] LABS: Alpha 1 Anti-trypsin 115 mg/dL (83-199); Ceruloplasmin 31 mg/dL (18-53); Haptoglobin 146 mg/dL (43-212)
[2021-04-22 15:37] LABS: Myeloperoxidase Antibody <1.0 AI; Proteinase 3 PR3 Antibodies <1.0 AI
[2021-04-22 19:37] LABS: EBV-NA IgG Index >600.00 U/mL; EBV-VCA IgG Ab >750.00 U/mL
[2021-04-22 19:37] LABS: Cytomegalovirus Ab IgG <0.60 U/mL; Cytomegalovirus Ab IgM <30.00 AU/mL
[2021-04-22 21:36] LABS: Anti Nuclear Antibody Screen NEGATIVE (NEGATIVE)
[2021-04-23 13:22] LABS: Mitochondrial Antibodies NEGATIVE (NEGATIVE)
[2021-04-24 12:26] LABS: Smooth Muscle Antibody 23 U (<20)
[2021-04-24 16:08] LABS: Transglutaminase Ab IgG 2 U/mL; Transglutaminase IgA 1 U/mL
[2021-04-25 08:15] LABS: ~HepC Num1 0.12 S/CO (0.00-0.79)
[2021-04-25 09:10] LABS: HBc Num1 0.08 S/CO (0.00-0.79)
[2021-04-25 11:10] LABS: Hepatitis A Antibody IgM 0.17 Index (0-0.79); ~Hepatitis A Antibody IgM Nonreactive (Nonreactive)
[2021-04-25 19:21] LABS: HSV 1 IgM IFA Negative (Negative); HSV 2 IgM IFA Negative (Negative)
[2021-04-27 13:57] LABS: Immunoglobulin G 1411 mg/dL (600-1640)
[2021-04-27 23:32] LABS: Soluble Liver Ag Autoantibody <20.1 U (0.0-20.0)
== END 2021-04-21 11:50 | disposition home or self-care (01) ==
LOC: HO.ED 04-19 02:11 → HO.EDOVER 04-19 05:58 → HO.S3 04-19 06:28
PROVIDERS: Internal Medicine Gastroenterology; Physician Assistant; Admitting Provider Internal Medicine; Emergency Provider Student in an Organized Health Care Education/Training Program; PCP Internal Medicine; Visit Provider Student in an Organized Health Care Education/Training Program
DX: K80.20 Calculus of gallbladder without cholecystitis without obstruction (principal); R10.9 Unspecified abdominal pain; Z20.822 Contact with and (suspected) exposure to COVID-19
CPT/HCPCS: 36415; 74176; 74181; 76705; 78226; 80048; 80076; 80143; 81001; 81025; 82103; 82390; 82784; 82977; 83010; 83516; 83520; 83615; 83690; 85025; 85027; 85610; 86021; 86038; 86039; 86255; 86256; 86644; 86645; 86664; 86665; 86695; 86696; 86704; 86706; 86709; 86803; 87340; 87389; 87635; 99285; A9537; J2270; J2405

== ENCOUNTER → 2021-04-30 13:00 | Outpatient (BNVA) | payer OTHER, SELFPAY | PROVIDERS: PCP Internal Medicine; Referring Provider Internal Medicine; Visit Provider Surgery | DX: Z01.818 Encounter for other preprocedural examination (principal); K80.20 Calculus of gallbladder without cholecystitis without obstruction | CPT/HCPCS: 99212 ==

== ENCOUNTER 2021-05-16 08:59 | Day surgery (SDC) | payer OTHER, SELFPAY ==
[2021-05-05 10:41] LABS: Alanine Aminotransferase 26 U/L (0-31); Albumin Level 4.3 g/dL (3.5-5.0); Alkaline Phosphatase 100 U/L (39-117); Aspartate Amino Transferase 15 U/L (5-31); Bilirubin Direct 0.4 mg/dL (0.0-0.5); Bilirubin Total 0.7 mg/dL (0.0-1.0); Total Protein 7.1 g/dL (6.5-8.0)
--- NOTE | 2021-05-15 12:07 | HO.ANESPROP2 ---
Documented by User: Quita Cazares 05/15/21 12:08 HPI - Anesthesia Eval Consult details Narrative: 36yo F for Cholecystectomy Laparoscopic PMFSH Active Problems Active Problems: All Active Problems (Updated 04/29/21 @ 00:01 by Miles Mcdonnell) Gallbladder stone without cholecystitis or obstruction (Acute) Past Medical History Medical History No known health problems Social History Social History Household Members: Children Housing: Apartment Do you presently have visiting nurse or other home services: No Alcohol intake: current Alcohol intake frequency: holidays/special occasions only Patient Tobacco Use Status: Never used Tobacco Use of substances other than those prescribed or required for medical reasons: No Have you been hit, kicked, punched, or otherwise hurt by someone within the past year? If so, by whom?: No Are you DNR?: No Advance Directives: No Advance Directives Information Provided: No Advance Directives on File: No Recently lost weight without trying: No service: No Current occupational status: employed Meds Allergies Allergy/AdvReac Type Severity Reaction Status Date / Time No Known Allergies Allergy Verified 04/30/21 13:06 Home Medications Medication Instructions Recorded Confirmed Last Taken Type ibuprofen 200 mg tablet (Advil) 200 mg PO Q6H PRN 04/30/21 04/30/21 Unknown History Exam Exam Date and Time: May 15, 2021 1207 Pertinent Lab Results Pertinent Lab Results: Laboratory Tests 05/05/21 09:27 Total Bilirubin 0.7 Direct Bilirubin 0.4 AST 15 D ALT 26 Alkaline Phosphatase 100 D Total Protein 7.1 Albumin 4.3 Laboratory Tests 04/21/21 04/21/21 06:22 06:22 WBC 5.4 Hgb 14.1 Hct 41.3 Plt Count 295 Sodium 139 Potassium 4.2 Chloride 109 H Carbon Dioxide 18 L BUN 8 L Creatinine 0.64 Assessment and Plan Assessment Anesthesia Assessment: Chart Reviewed Documented by User: Jeanine Patterson 05/16/21 10:39 [facility] Past Medical History Medical History No known health problems Family History Family history of problems with anesthesia: No Surgical History History of Problems with Anesthesia: No Social History Social History Household Members: Children Housing: Apartment Do you presently have visiting nurse or other home services: No Alcohol intake: current Alcohol intake frequency: holidays/special occasions only Patient Tobacco Use Status: Never used Tobacco Use of substances other than those prescribed or required for medical reasons: No Have you been hit, kicked, punched, or otherwise hurt by someone within the past year? If so, by whom?: No Are you DNR?: No Advance Directives: No Advance Directives Information Provided: No Advance Directives on File: No Recently lost weight without trying: No service: No Current occupational status: employed Meds Allergies Allergy/AdvReac Type Severity Reaction Status Date / Time No Known Allergies Allergy Verified 04/30/21 13:06 Home Medications Medication Instructions Recorded Confirmed Last Taken Type ibuprofen 200 mg tablet (Advil) 200 mg PO Q6H PRN 04/30/21 04/30/21 Unknown History Exam Airway Mallampati Class: II TM Dist: >3cm Neck ROM: Full Assessment and Plan Assessment Anesthesia Assessment: Anesthesia Plan Discussed Final Anesthetic Review Family History of Problems with Anesthesia: No History of Problems with Anesthesia: No NPO: Yes ASA Class: I Final Preanesthetic Review: No Changes in Pt Med Stat, Meds/Allgs Chart Reviewed, Consent Obtained/Reviewed and Anes Risks/Benef Reviewed Patient Risk: Low Procedure Risk: Low Assessment/Block/Sedation in SS: Assess/Block/Sedation-SS Anesthetic Plan Anesthetic Plan: GA Disposition: Standard PACU
[2021-05-16] VITALS (10 sets, daily range): BP systolic 105–128; BP diastolic 43–83; PULSE 52–392; RESP 16–18; TEMP 36.5–36.6; O2SAT 95–100; BMI 30.9
[2021-05-16] MEDS: Lactated Ringers 1,000 ML 100 ML IVCONT (09:21)
[2021-05-16] MEDS: Acetaminophen 325 MG TABLET 650 MG PO (09:24)
[2021-05-16 09:35] LABS: UPreg QC Valid YES; Urine Pregnancy NEGATIVE (NEGATIVE)
--- NOTE | 2021-05-16 11:07 | MHC.SHP ---
Pre-Procedural Eval Section A Date of Service: 05/16/21 Section B Chief Complaint: Gallbladder stone w/o cholecystitis or obstruction Allergies: Allergies Allergy/AdvReac Type Severity Reaction Status Date / Time No Known Allergies Allergy Verified 04/30/21 13:06 Plan I have reviewed the history and physical and performed a pertinent physical examination on my patient. No changes have occurred unless specified.
--- NOTE | 2021-05-16 12:25 | W.PM.OPN ---
Operative Note Operative Note Date of Service: 05/16/21 Narrative: Preop diagnosis: Gallstones, symptomatic Postop diagnosis: Gallstones, symptomatic Procedure: Laparoscopic cholecystectomy Surgeon: Manav Szymanski MD senior administrative assistant: AMINAH Mendez The patient is a 36 year female who had been admitted the hospital for weeks ago because of abnormal LFTs with markedly elevated bilirubin which trended down immediately. She also has had some issues with right upper quadrant pain recently. She had gallstones on imaging studies with no cholecystitis at that time, and an MRI did not show CBD stones. Overall clinical picture was suggestive of symptomatic gallstones with transient passage of stones to the common bile duct before. She understood the technique of laparoscopic cholecystectomy and was aware of the risks, benefits, and alternatives. She was brought to the operating room and placed supine on table under general anesthesia via endotracheal tube. The abdomen was prepped and draped in the usual sterile fashion. A surgical time-out was done. The patient received Cefotan 2 g IV preoperatively. I made short incision on the supraumbilical margin using a blade 15 and this was carried down through the full-thickness of the skin subcutaneous fat down to the fascia. The fascia was incised. The peritoneum was entered and through this incision a Rob port was introduced. Pneumoperitoneum was introduced to a pressure of 15 mm hg. From here on the rest of the procedure was done under vision with the laparoscopic. With laparoscopic visualization I inserted a 5/12 mm port through a small incision in the epigastric area below the subcostal margin. 5 mm ports were introduced a small incision below the subcostal margin along the entire axilla line and the midclavicular line. Graspers were placed through these working ports. The patient was placed in head-up and [id number] position. The liver edge was lifted to expose the fundus of the gallbladder. I was able to apply a grasper at the fundus and this was used to retract the gallbladder superiorly. There was note of adhesions on the anterior wall the gallbladder. I therefore had to do blunt dissection with the [place] dissector to free up this adhesions. By doing so was able to clearly expose the entire of anterior wall of the gallbladder. I was able to therefore apply a grasper towards the pouch and this was used to retract the gallbladder laterally. At this point therefore the gallbladder was being retracted in a lateral and cephalad fashion. By doing so, we were putting the area of the cystic duct on stretch. Proceeded to continue to do blunt dissection with the [place] dissector to this area clear and identify the neck of the gallbladder. I was able to identify the cystic artery clearly. This was more anterior than normal so I had to apply clips on this and this was transected between clips using Endo scissors. By doing so was able to achieve better exposure of the neck of the gallbladder. I continued to dissect and there more adhesions distal in the neck of the gallbladder. However with blunt dissection was able to clearly get around this narrow neck. There was note of small bleeding area on the anterior of the gallbladder laterally from a small vessel on near the liver bed so I had to apply clips on this to achieve good hemostasis. I then continued to gently define the rest of the neck of the gallbladder. By doing so was able to also clearly achieve a critical view of the hepatocystic triangle and there were no other structures in this area. In view of the presence of adhesions or distal to this narrow neck I decided not to continue to dissect all the way to the cystic duct. I therefore applied wide clips on the distal neck of the gallbladder and this was transected between clips using Endo scissors as well. I then proceeded to retract the gallbladder away from the liver bed. I used the electrocautery spatula to divide across the thin hilum. I incised the peritoneum of the gallbladder with the tip of the spatula and proceeded to separate the gallbladder along well-defined plane of dissection between the gallbladder wall and the liver bed using a combination of blunt dissection with the tip and with electrocautery. I proceeded with this dissection to separate the gallbladder all way to the fundus until the entire gallbladder was completely from the liver bed. The gallbladder was then retrieved through an endobag through the umbilical incision. I reinserted all ports and re-insufflated. Examined the subhepatic space. There was some blood clots but no active bleeding. I irrigated and suction out the irrigant fluid I observed all 4 quadrants and there was no other pathology nor evidence of any bowel injury. I reapposed serve the subhepatic space. The clips were intact and there was no bleeding seen. There was no evidence of any bile leak. Once hemostasis was ensured therefore, I proceeded to desufflate through the port sites. I removed all ports and removed the Rob port last. I closed the fascia of the umbilical incision with the Dexon 0 stitch figure-eight fashion. Skin closure was achieved in all incisions using Dexon 4-0 subcuticular running sutures. All incisions were infiltrated with Marcaine 0.5% for postop analgesia. Steri-Strips and dressings were applied. The procedure was then completed The patient tolerated procedure well. There were no complication noted. Initial and final counts of sponges and instruments were correct. Estimated blood loss was about 30 cc The patient was extubated without difficulty and transferred to the recovery room with stable vital signs.
--- NOTE | 2021-05-16 12:36 | PM.OP ---
Brief Operative Note Date of Service: 05/16/21 Pre-op diagnosis: Symptomatic gallstones Post-op diagnosis: same Procedure: Laparoscopic cholecystectomy Surgeon: Manav Szymanski MD Anesthesia: GETA Was an Registered Sales Assistant used for this Procedure?: Yes Registered Sales Assistant: Chasity Mendez Estimated blood loss (mL): 30 Pathology: other (Gallbladder) Condition: stable Disposition: PACU
[2021-05-16] MEDS: oxyCODONE HCl Immed Release 5 MG TABLET PO (12:44)
[2021-05-16] MEDS: fentaNYL citrate/PF 100 MCG/2 ML VIAL 50 MCG IVPUSH ×2 (12:45→12:50)
[2021-05-16] MEDS: Ondansetron ODT 4 MG TAB.RAPDIS TRANSLINGU (13:55)
== END 2021-05-16 14:48 | disposition home or self-care (01) ==
PROVIDERS: Nurse Practitioner; PCP Internal Medicine; Visit Provider Surgery
PROC: 0FT44ZZ Resection of Gallbladder, Percutaneous Endoscopic Approach (ICD-10-PCS; CPT 47562; principal; 2021-05-16 11:50)
DX: K80.10 Calculus of gallbladder with chronic cholecystitis without obstruction (principal); K82.8 Other specified diseases of gallbladder; Z79.1 Long term (current) use of non-steroidal anti-inflammatories (NSAID)
CPT/HCPCS: 47562; 36415; 80076; 81025; 88304; J1100; J1170; J2250; J2370; J2405; J3010

== ENCOUNTER 2021-05-20 15:44 | Inpatient (IN) | payer OTHER, SELFPAY ==
--- NOTE | ~2021-05-20 | FL_ITS ---
EXAMINATION: Intraoperative fluoroscopy CLINICAL INFORMATION: ERCP COMPARISON: MRCP May 21, [address] abdomen pelvis May 20, 2021 TECHNIQUE: Intraoperative fluoroscopy was provided for use by Dr. Baker. A total of 6 images were saved to PACS. A radiologist was not present during imaging. Today's dictation is only for administrative purposes to document intraoperative fluoroscopic usage. TOTAL FLUOROSCOPIC TIME: 1.2 minutes FL/FL guidance in OR FINDINGS~\^^ Intraoperative fluoroscopy provided for use by Dr. Baker. Please see operative note for detailed findings.
--- NOTE | ~2021-05-20 | MR_ITS ---
EXAMINATION: MR ABDOMEN WITHOUT CONTRAST CLINICAL INFORMATION: Increasing liver function test. Post cholecystectomy. Evaluate for common bile duct stone or bile leak. COMPARISON: Previous CT of the abdomen and pelvis 05/20/2021, MRCP 04/19/2021, HIDA scan 04/19/2021 and abdominal ultrasound 04/18/2021 TECHNIQUE: MR abdomen is performed without gadolinium contrast. MRCP sequences were also performed. FINDINGS: LUNG BASES: The visualized lung bases are unremarkable. LIVER, GALLBLADDER, AND BILIARY TREE: The liver is normal in size, smooth in contour, and normal in signal. No focal hepatic lesion. There is a small 1.3 x 3.2 cm fluid collection in the gallbladder fossa. This is similar to yesterday's CT scan. There is no intra or extrahepatic biliary duct dilatation. No common bile duct stone is seen. PANCREAS: Unremarkable. SPLEEN: There is a 1.5 cm dark on T1 and bright on T2 weighted sequences lesion in the inferior spleen that is stable. This again probably represents a cyst or hemangioma. ADRENAL GLANDS: Unremarkable. KIDNEYS AND URETERS: The kidneys are normal in size and shape. No hydronephrosis. No perinephric stranding. GASTROINTESTINAL TRACT: No bowel obstruction. No ascites or fluid collection. ABDOMINAL WALL: There is diastasis of the rectus muscles and mild abdominal wall bulge. LYMPH NODES: There are small retroperitoneal lymph nodes. No enlarged lymph nodes are seen. There may be trace ascites in the right lower quadrant. VASCULAR: Unremarkable. OSSEOUS STRUCTURES: Marrow signal normal. MR/MR MRCP IMPRESSION: Stable 1.3 x 3.2 cm fluid collection in the gallbladder fossa post cholecystectomy. No intra or extrahepatic biliary duct dilatation or common bile duct stone seen. If there is clinical suspicion of a bile leak, HIDA scan would be recommended. There is no significant ascites.
--- NOTE | ~2021-05-20 | CT_ITS ---
EXAMINATION: CT ABDOMEN AND PELVIS WITH CONTRAST CLINICAL INFORMATION: 36-year-old female with jaundice and pain status post recent cholecystectomy. COMPARISON: MRCP April 19, 2021 and abdominal ultrasound and CT abdomen pelvis April 18, 2021 TECHNIQUE: Multidetector volumetric images were obtained from the superior aspect of the liver through the pubic symphysis following administration 85 mL of Omnipaque 350 intravenous contrast. Sagittal and coronal reformatted images were obtained on the technologist's workstation. This CT examination was performed using dose optimization techniques as appropriate, variously including the following: *Automated exposure control *Adjustment of mA and/or kV according to patient size (this includes techniques or standardized protocols for targeted exams where dose is matched to indication/reason for exam; i.e. extremities or head) *Use of iterative reconstruction technique DLP: 528 mGy-cm FINDINGS: Visualized lung bases demonstrate mild dependent atelectasis. The liver demonstrates normal size, contour and attenuation. The gallbladder is surgically absent. Simple appearing fluid within the cholecystectomy bed is nonspecific but likely a normal postsurgical finding less than one week postop. The common bile duct is not dilated. The pancreas is normal in appearance. Similar hypodensity within the posterior spleen. The adrenal glands are unremarkable. Symmetrically enhancing kidneys. No hydronephrosis. Normal caliber loops of small and large bowel. Subtle soft tissue stranding of the ventral abdominal wall most consistent with recent surgical intervention. Normal caliber abdominal aorta. The bladder is decompressed and therefore not accurately evaluated. Unremarkable CT appearance of the uterus. Interval decrease in size of now approximately 2 cm right adnexal cyst. No gross free pelvic fluid. No inguinal lymphadenopathy. No acute osseous abnormality. CT/CT abdomen pelvis w con IMPRESSION: Expected postsurgical changes of the abdomen. No CT evidence for acute abnormality within the abdomen or pelvis.
[2021-05-20 16:45] VITALS: BP 136/87; PULSE 74; RESP 18; TEMP 36.9; O2SAT 98; BMI 32.3
[2021-05-20 17:53] LABS: MANUAL DIFF FLAG NO
[2021-05-20 18:01] LABS: Basophils Percent Auto 0.5 % (0-2); Eosinophils Absolute Auto 0.2 X10*3/uL (0.0-0.4); Eosinophils Percent Auto 2.7 % (0-4); Hematocrit 38.5 % (37-47); Hemoglobin 13.5 g/dl (12.0-16.0); Imm Gran Abs Auto 0.02 X10*3/uL (0.00-0.03); Imm Gran Pct Auto 0.3 % (0.0-0.4); Lymphocytes Percent Auto 15.2 % (20-40); Mean Corpuscular HGB Conc 35.1 g/dl (31.0-35.0); Mean Corpuscular Hemoglobin 32.4 pg (27.0-33.0); Mean Corpuscular Volume 92.3 fL (80-98); Mean Platelet Volume 9.7 fL (9.4-12.3); Monocytes Absolute Auto 0.4 X10*3/uL (0.1-1.2); Monocytes Percent Auto 6.7 % (2-11); Neutrophils Absolute Auto 4.8 X10*3/uL (2.0-8.3); Neutrophils Percent Auto 74.6 % (45-73); Platelet Count 260 X10*3/uL (160-400); Red Blood Count 4.17 X10*6/uL (4.20-5.50); Red Cell Distribution Width 11.7 % (11.0-16.0); White Blood Count 6.4 X10*3/uL (4.8-10.8)
[2021-05-20 18:03] LABS: INTERNATIONAL NORM RATIO 1.1 (0.9-1.1); Prothrombin Time 12.4 SEC (9.9-13.0)
[2021-05-20 18:03] LABS: Glucose Urine UA NEG (NEG); Leukocyte Esterase Urine TRACE (NEG); Nitrite Urine POS (NEG); Specific Gravity - Urine >= 1.030 (1.005-1.025); UACC Culture Trigger YES; Urine Blood NEG (NEG); Urine Ketones 5 MG/DL (NEG); Urine Protein TRACE MG/DL (NEG-TRACE)
[2021-05-20 18:06] LABS: Partial Thromboplastin Time 36.3 SEC (24.1-38.0)
[2021-05-20 18:09] LABS: Appearance Urine HAZY; Color Urine DARK YELLOW
[2021-05-20 18:09] LABS: COVID-19 Test Negative (Negative); IDNOW Serial# 9DD0AD1C
[2021-05-20 18:10] LABS: UPreg QC Valid YES; Urine Pregnancy NEGATIVE (NEGATIVE)
[2021-05-20 18:12] VITALS: BP 128/67; PULSE 44; RESP 16; TEMP 36.6; O2SAT 98
[2021-05-20 18:14] LABS: Lactic Acid 0.8 mmol/L (0.5-2.0)
[2021-05-20 18:24] LABS: Alanine Aminotransferase 352 U/L (0-31); Albumin Level 4.4 g/dL (3.5-5.0); Alkaline Phosphatase 246 U/L (39-117); Anion Gap 12 (12-20); Aspartate Amino Transferase 197 U/L (5-31); Bilirubin Total 5.6 mg/dL (0.0-1.0); Blood Urea Nitrogen 8 mg/dL (9-16); Calcium 9.7 mg/dL (8.4-10.2); Carbon Dioxide 24 mmol/L (22-29); Chloride 109 mmol/L (96-108); Creatinine Clr Calc Pharmacy 105.7; Estimated Glomerular Filt Rate > 60; Glucose Random 96 mg/dL (60-115); Lipase 22 U/L (8-78); Potassium 4.1 mmol/L (3.3-5.1); Sodium 141 mmol/L (135-145); Total Protein 7.3 g/dL (6.5-8.0)
[2021-05-20 18:25] LABS: Bacteria Urine 1+ /LPF; RBC Urine 0-2 /HPF (0); Squamous Epithelial Cell Urine 1+ /LPF; WBC Urine 0 /HPF (0-4)
[2021-05-20] MEDS: iohexoL 350 MG/ML 100 ML INFUS..BTL IV (18:48)
--- NOTE | 2021-05-20 19:04 | ED.ABDPAIN ---
HPI - Abdominal Pain General Chief Complaint: Abdominal Pain Stated Complaint: POST OP PAIN Time Seen by Provider: 05/20/21 17:12 Source: patient Mode of arrival: ambulatory Limitations: no limitations History of Present Illness HPI narrative: 36-year-old female who presents emergency department for evaluation of right upper quadrant abdominal pain radiating to her back. The patient states that the pain is similar to the pain that she was having prior to her gallbladder being removed on 05/16/2021. In reviewing her records, the patient was experiencing intermittent right upper quadrant abdominal pain x3-6 months. She was admitted to the hospital on 04/19/2021 for elevated bilirubin, AST, ALT and alk-phos. Her CT scan showed cholelithiasis without evidence of cholecystitis. The patient had consult from GI and General surgery. The patient did follow-up with surgery and had an MRI that did not reveal any common bile duct stones. The patient was then scheduled for elective cholecystectomy for symptomatic gallstones with transient passage of stones to the common bile duct and she had a laparoscopic cholecystectomy on 05/16/2021 Patient states that she was feeling well after the surgery until Wednesday (3 days prior to arrival) when she developed right upper quadrant pain which radiated to her back. She states the pain was a constant, ?pain that was initially relieved by ibuprofen and Percocet. Today however she states that the pain became worse and was 10/10. She took a Percocet of 2:00 p.m. with no relief. She had associated nausea and vomiting. She denied fever, chills, chest pain, shortness of breath. She states that she has had normal bowel movements and has been passing gas. The patient also noted that her eyes were turning yellow again. She contacted her surgeon, Dr. Szymanski who referred to the emergency department. He did see here in the emergency department as well. At the time my evaluation, the patient states that her pain is resolved and she has no further complaints. Related Data Previous Rx's Medication Instructions Recorded ibuprofen 600 mg tablet 600 mg PO Q6H PRN #30 tab 05/16/21 oxycodone-acetaminophen 5 mg-325 1 - 2 tab PO Q4-6H PRN #30 tab 05/16/21 mg tablet (Percocet) Allergies Allergy/AdvReac Type Severity Reaction Status Date / Time No Known Allergies Allergy Verified 04/30/21 13:06 Review of Systems Review of Systems Yes all other systems are reviewed and are negative Physical Exam Vital Signs: Vital Signs: Last Vital Signs Temp 98.9 F 05/20/21 19:12 Pulse 45 L 05/20/21 19:12 Resp 16 05/20/21 19:12 BP 125/65 05/20/21 19:12 Pulse Ox 100 05/20/21 19:12 Body Mass Index 32.3 Const: General: cooperative and no acute distress Orientation/consciousness: oriented to person and oriented to place Limitations: no limitations HENMT: Head: Yes normal to inspection, Yes normocephalic and Yes atraumatic Ears: external ears normal General nose exam: Normal external nose present Face and sinus: Yes normal facial exam Mouth: Normal oral and palatal mucosa present Throat: Yes posterior oropharynx normal Eyes: Alignment and Position: alignment normal Periorbital: periorbital findings normal Eyelids: Yes eyelids normal Conjunctivae: conjunctivae normal Sclerae: scleral abnormal bilateral (Icteric) Pupils: Equal, round and reactive pupils present Neck: Neck: Yes normal visual inspection, Yes no lymphadenopathy, Yes trachea midline and Yes supple Chest: Chest palpation & inspection: normal inspection of the chest and normal palpation of entire chest wall Resp: Effort & Inspection: normal respiratory effort and able to speak in complete sentences Auscultation: clear to auscultation bilaterally Cardio: Rate: regular rate Rhythm: regular rhythm Heart sounds: S1 normal heart sound present, S2 normal heart sound present and no murmurs GI: Other: The patient's laparoscopic insertion sites appear to be normal with no evidence of cellulitis or drainage. The patient's abdomen is not distended. She has normoactive bowel sounds. She has no tenderness with palpation. Auscultation: normal bowel sounds : General: Yes no CVA tenderness Back/Spine/Pelvis: Back: no CVA tenderness Skin: Other: Mild jaundice Neuro: General: oriented to person and oriented to place Cranial nerves: Yes CN's II-XII intact bilaterally and Yes Equal, round and reactive pupils present Cognition (Neuro): normal cognition Motor exam (neuro): 5/5 motor strength present throughout Extrem: General: Yes normal to inspection Psych: Appearance: grossly normal Speech and movement: Normal speech and movement present Affect: normal affect Attitude: cooperative Thought process: Normal thought process present Thought content: Normal thought content present Course Course Course Narrative: 36-year-old female who presents emergency department for evaluation of right upper quadrant abdominal pain and jaundice, status post laparoscopic cholecystectomy on 05/16/2021 (4 days postop). Revealed that the patient was bradycardic with a pulse of 44 otherwise unremarkable. The patient's abdominal exam revealed no abdominal tenderness. evaluation did reveal elevated AST and ALT of 197 and 352. She had an elevated alk-phos of 146. Patient's total bilirubin was elevated at 5.6. The patient had similar elevations earlier in the month when she was hospitalized. CBC was normal. PT/INR and PTT were normal. Urinalysis revealed no evidence for urinary tract infection. Twelve EKG revealed a sinus bradycardia. Troponin is pending. CT scan of the abdomen pelvis revealed no evidence for acute abnormalities with the abdomen or pelvis to explain the patient's elevated LFTs. I did discuss the patient's presentation with her surgeon, Dr. Szymanski and he will admit the patient to [facility] [place] with a medical consult for the patient's bradycardia. MDM - Abdominal Pain Lab Data Result diagrams: 05/20/21 17:45 05/20/21 17:45 Labs: Lab Results 05/20/21 05/20/21 05/20/21 Range/Units 17:39 17:45 17:45 WBC 6.4 (4.8-10.8) X10*3/uL RBC 4.17 L (4.20-5.50) X10*6/uL Hgb 13.5 (12.0-16.0) g/dl Hct 38.5 (37-47) % MCV 92.3 (80-98) fL MCH 32.4 (27.0-33.0) pg MCHC 35.1 H (31.0-35.0) g/dl RDW 11.7 (11.0-16.0) % Plt Count 260 (160-400) X10*3/uL MPV 9.7 (9.4-12.3) fL Immature Gran % (Auto) 0.3 (0.0-0.4) % Neut % (Auto) 74.6 H (45-73) % Lymph % (Auto) 15.2 L (20-40) % [place] % (Auto) 6.7 (2-11) % Eos % (Auto) 2.7 (0-4) % Baso % (Auto) 0.5 (0-2) % Lymph # (Auto) 1.0 L (1.2-4.9) X10*3/uL [place] # (Auto) 0.4 (0.1-1.2) X10*3/uL Eos # (Auto) 0.2 (0.0-0.4) X10*3/uL Baso # (Auto) 0.0 (0.0-0.2) X10*3/uL Abs Immat Gran (auto) 0.02 (0.00-0.03) X10*3/uL Absolute Neuts (auto) 4.8 (2.0-8.3) X10*3/uL Absolute Nucleated RBC 0.000 (0.0-0.012) X10*3/uL Nucleated RBC % (auto) 0.0 (0.0-0.2) /100WBC PT 12.4 (9.9-13.0) SEC INR 1.1 (0.9-1.1) APTT 36.3 (24.1-38.0) SEC Sodium (135-145) mmol/L Potassium (3.3-5.1) mmol/L Chloride (96-108) mmol/L Carbon Dioxide (22-29) mmol/L Anion Gap (12-20) BUN (9-16) mg/dL Creatinine (0.5-1.4) mg/dL Estim Creat Clear Calc Estimated GFR Random Glucose (60-115) mg/dL Lactic Acid (0.5-2.0) mmol/L Calcium (8.4-10.2) mg/dL Total Bilirubin (0.0-1.0) mg/dL Direct Bilirubin (0.0-0.5) mg/dL AST (5-31) U/L ALT (0-31) U/L Alkaline Phosphatase (39-117) U/L Total Protein (6.5-8.0) g/dL Albumin (3.5-5.0) g/dL Lipase (8-78) U/L Urine Color Urine Appearance Urine pH (5.0-8.0) Ur Specific [place] (1.005-1.025) Urine Protein (NEG-TRACE) MG/DL Urine Glucose (UA) (NEG) MG/DL Urine Ketones (NEG) MG/DL Urine Blood (NEG) Urine Nitrite (NEG) Ur Leukocyte Esterase (NEG) Urine RBC (0) /HPF Urine WBC (0-4) /HPF Ur Squamous Epith Cells /LPF Urine Bacteria /LPF Urine Test (NEGATIVE) COVID-19 (UJLY) Negative (Negative) COVID-19 Clin Com See Note 05/20/21 05/20/21 05/20/21 Range/Units 17:45 17:45 17:55 WBC (4.8-10.8) X10*3/uL RBC (4.20-5.50) X10*6/uL Hgb (12.0-16.0) g/dl Hct (37-47) % MCV (80-98) fL MCH (27.0-33.0) pg MCHC (31.0-35.0) g/dl RDW (11.0-16.0) % Plt Count (160-400) X10*3/uL MPV (9.4-12.3) fL Immature Gran % (Auto) (0.0-0.4) % Neut % (Auto) (45-73) % Lymph % (Auto) (20-40) % [place] % (Auto) (2-11) % Eos % (Auto) (0-4) % Baso % (Auto) (0-2) % Lymph # (Auto) (1.2-4.9) X10*3/uL [place] # (Auto) (0.1-1.2) X10*3/uL Eos # (Auto) (0.0-0.4) X10*3/uL Baso # (Auto) (0.0-0.2) X10*3/uL Abs Immat Gran (auto) (0.00-0.03) X10*3/uL Absolute Neuts (auto) (2.0-8.3) X10*3/uL Absolute Nucleated RBC (0.0-0.012) X10*3/uL Nucleated RBC % (auto) (0.0-0.2) /100WBC PT (9.9-13.0) SEC INR (0.9-1.1) APTT (24.1-38.0) SEC Sodium 141 (135-145) mmol/L Potassium 4.1 (3.3-5.1) mmol/L Chloride 109 H (96-108) mmol/L Carbon Dioxide 24 (22-29) mmol/L Anion Gap 12 (12-20) BUN 8 L (9-16) mg/dL Creatinine 0.65 (0.5-1.4) mg/dL Estim Creat Clear Calc 105.7 Estimated GFR > 60 Random Glucose 96 (60-115) mg/dL Lactic Acid 0.8 (0.5-2.0) mmol/L Calcium 9.7 (8.4-10.2) mg/dL Total Bilirubin 5.6 H (0.0-1.0) mg/dL Direct Bilirubin 4.0 H (0.0-0.5) mg/dL AST 197 H (5-31) U/L ALT 352 H (0-31) U/L Alkaline Phosphatase 246 H D (39-117) U/L Total Protein 7.3 (6.5-8.0) g/dL Albumin 4.4 (3.5-5.0) g/dL Lipase 22 (8-78) U/L Urine Color DARK YELLOW Urine Appearance HAZY Urine pH 6.0 (5.0-8.0) Ur Specific [place] >= 1.030 H (1.005-1.025) Urine Protein TRACE (NEG-TRACE) MG/DL Urine Glucose (UA) NEG (NEG) MG/DL Urine Ketones 5 (NEG) MG/DL Urine Blood NEG (NEG) Urine Nitrite POS H (NEG) Ur Leukocyte Esterase TRACE H (NEG) Urine RBC 0-2 (0) /HPF Urine WBC 0 (0-4) /HPF Ur Squamous Epith Cells 1+ /LPF Urine Bacteria 1+ /LPF Urine Test (NEGATIVE) COVID-19 (JULY) (Negative) COVID-19 Clin Com 05/20/21 Range/Units 17:55 WBC (4.8-10.8) X10*3/uL RBC (4.20-5.50) X10*6/uL Hgb (12.0-16.0) g/dl Hct (37-47) % MCV (80-98) fL MCH (27.0-33.0) pg MCHC (31.0-35.0) g/dl RDW (11.0-16.0) % Plt Count (160-400) X10*3/uL MPV (9.4-12.3) fL Immature Gran % (Auto) (0.0-0.4) % Neut % (Auto) (45-73) % Lymph % (Auto) (20-40) % [place] % (Auto) (2-11) % Eos % (Auto) (0-4) % Baso % (Auto) (0-2) % Lymph # (Auto) (1.2-4.9) X10*3/uL [place] # (Auto) (0.1-1.2) X10*3/uL Eos # (Auto) (0.0-0.4) X10*3/uL Baso # (Auto) (0.0-0.2) X10*3/uL Abs Immat Gran (auto) (0.00-0.03) X10*3/uL Absolute Neuts (auto) (2.0-8.3) X10*3/uL Absolute Nucleated RBC (0.0-0.012) X10*3/uL Nucleated RBC % (auto) (0.0-0.2) /100WBC PT (9.9-13.0) SEC INR (0.9-1.1) APTT (24.1-38.0) SEC Sodium (135-145) mmol/L Potassium (3.3-5.1) mmol/L Chloride (96-108) mmol/L Carbon Dioxide (22-29) mmol/L Anion Gap (12-20) BUN (9-16) mg/dL Creatinine (0.5-1.4) mg/dL Estim Creat Clear Calc Estimated GFR Random Glucose (60-115) mg/dL Lactic Acid (0.5-2.0) mmol/L Calcium (8.4-10.2) mg/dL Total Bilirubin (0.0-1.0) mg/dL Direct Bilirubin (0.0-0.5) mg/dL AST (5-31) U/L ALT (0-31) U/L Alkaline Phosphatase (39-117) U/L Total Protein (6.5-8.0) g/dL Albumin (3.5-5.0) g/dL Lipase (8-78) U/L Urine Color Urine Appearance Urine pH (5.0-8.0) Ur Specific [place] (1.005-1.025) Urine Protein (NEG-TRACE) MG/DL Urine Glucose (UA) (NEG) MG/DL Urine Ketones (NEG) MG/DL Urine Blood (NEG) Urine Nitrite (NEG) Ur Leukocyte Esterase (NEG) Urine RBC (0) /HPF Urine WBC (0-4) /HPF Ur Squamous Epith Cells /LPF Urine Bacteria /LPF Urine Test NEGATIVE (NEGATIVE) COVID-19 (JULY) (Negative) COVID-19 Clin Com Discharge Plan Discharge Prescriptions: No Action oxycodone-acetaminophen [Percocet] 5-325 mg tablet 1 - 2 tab PO Q4-6H PRN (Reason: pain) Qty: 30 RF: 0 ibuprofen 600 mg tablet 600 mg PO Q6H PRN (Reason: pain) Qty: 30 RF: 0 PMFSH Past Medical History PMFSH Narrative: Past medical history: None. Past surgical history: Laparoscopic cholecystectomy 05/16/2021. Social history: The patient denies tobacco use. She states she rarely drinks alcohol. She denies drug use. Medical History No known health problems Social History Social History Household Members: Children Housing: Apartment Do you presently have visiting nurse or other home services: No Alcohol intake: never Patient Tobacco Use Status: Never used Tobacco Use of substances other than those prescribed or required for medical reasons: No Advance Directives: No Advance Directives Information Provided: Yes Patient : No service: No Current occupational status: employed
[2021-05-20 19:12] VITALS: BP 125/65; PULSE 45; RESP 16; TEMP 37.2; O2SAT 100
--- NOTE | 2021-05-20 19:14 | P.HPGS_ITS ---
History of Present Illness History of Present Illness Date of Service: 05/22/21 Chief complaint: Postop pain, abnormal LFT's, bradycardia Narrative: Sana Maldonado is a 36 year old female who had undergone uneventful laparoscopic cholecystectomy last 05/16/2021 as an outpatient. She says says she had been doing well at home but started to have some pain the epigastric area radiating all the way to the mid back history afternoon which responded well to p.o. meds. However, this morning, she says that she walked up with some yellowing of her eyes. She had pain again all morning which she did not seem to respond to her p.o. pain meds. She describes her pain as similar to the pain that she had when she was admitted last 04/19/2021. At that, she also had elevated bilirubin. Her clinical course then seemed to be consistent with passage of gallstones to the common bile duct even as her MRI did not reveal any CBD stones. In view of that episode however, she wanted to proceed with cholecystectomy which was eventually done. She denies nausea or vomiting. She denies any fever or chills. Review of Systems Constitutional: Constitutional: Denies chills and Denies fever(s) Cardiovascular: Cardiovascular: Denies chest pain, Denies dyspnea and Denies dyspnea on exertion Respiratory: Respiratory: Denies cough, Denies dyspnea and Denies dyspnea on exertion Gastrointestinal: Gastrointestinal: Denies hematochezia and Denies change in bowel habits Genitourinary: Genitourinary: Denies hematuria Musculoskeletal: Musculoskeletal: Denies back pain and Denies limited range of motion Neurologic: Denies focal weakness and Denies convulsions Psychiatric: Psychiatric: Denies depression and Denies mood swings [facility] Past Medical History Medical History No known health problems Social History Social History Household Members: Children Housing: Apartment Do you presently have visiting nurse or other home services: No Alcohol intake: never Patient Tobacco Use Status: Never used Tobacco service: No Current occupational status: employed Meds Allergies Allergy/AdvReac Type Severity Reaction Status Date / Time No Known Allergies Allergy Verified 04/30/21 13:06 Physical Exam Vital Signs: Vital Signs: Last Vital Signs Temp 98.9 F 05/20/21 19:12 Pulse 45 L 05/20/21 19:12 Resp 16 05/20/21 19:12 BP 125/65 05/20/21 19:12 Pulse Ox 100 05/20/21 19:12 Body Mass Index 32.3 Const: Other: Ambulating well, looks well but does complain of pain in the upper abdomen radiating to the back General: comfortable and no acute distress Orientation/consciousness: patient oriented x3 Eyes: Other: icteric sclerae Neck: Neck: Yes no lymphadenopathy Resp: Auscultation: clear to auscultation bilaterally Cardio: Rhythm: other ( bradycardic but asymptomatic) GI: Other: mild tenderness on the epigastric area, all incisions from laparoscopic cholecystectomy are well healed Palpation (GI): Soft to palpation, nontender and no guarding Neuro: General: patient oriented x3 Results Results Labs: Short CBC 05/20/21 Range/Units 17:45 WBC 6.4 (4.8-10.8) X10*3/uL Hgb 13.5 (12.0-16.0) g/dl Hct 38.5 (37-47) % Plt Count 260 (160-400) X10*3/uL BMP 05/20/21 17:45 Sodium 141 Potassium 4.1 Chloride 109 H Carbon Dioxide 24 BUN 8 L Creatinine 0.65 Calcium 9.7 Liver Function 05/20/21 Range/Units 17:45 Total Bilirubin 5.6 H (0.0-1.0) mg/dL AST 197 H (5-31) U/L ALT 352 H (0-31) U/L Alkaline Phosphatase 246 H D (39-117) U/L Albumin 4.4 (3.5-5.0) g/dL Urine 05/20/21 05/20/21 Range/Units 17:55 17:55 Urine Color DARK YELLOW Urine Appearance HAZY Urine pH 6.0 (5.0-8.0) Ur Specific [place] >= 1.030 H (1.005-1.025) Urine Protein TRACE (NEG-TRACE) MG/DL Urine Glucose (UA) NEG (NEG) MG/DL Urine Test NEGATIVE (NEGATIVE) Abdomen CT scan report/results: report reviewed and image reviewed CT scan - pelvis: report reviewed and image reviewed Assessment and Plan (1) Abnormal LFTs (liver function tests): Status: Acute (2) Bradycardia: Status: Acute Her heart rate is 44 although she is asymptomatic and her blood pressure is within normal. I am going to consult the hospitalist service because of this. An EKG has been ordered by the emergency room physician. She underwent laparoscopic cholecystectomy last 05/16/2021 and started to have upper abdominal pain radiating to the back yesterday afternoon. This was similar to her pain from April 19 when she was admitted. Her LFTs today are also elevated with bilirubin of 5.6. Her bilirubin was also elevated last April the at 6.4. I have reviewed her CAT scan from [facility]. This does not show any CBD dilatation. There is minimal fluid in the gallbladder fossa consistent with her postop status. Current clinical course seems to suggest passage of stone through the CBD. I am going to consult the plan checker for possible ERCP. I explained this plan to the patient. She currently is comfortable and understands the plan. Quality Stroke Does the patient have a stroke diagnosis?: No VTE Prior VTE?: No VTE Risk Level:: Medical - low VTE Device Contraindication: N/A - Device Ordered VTE Drug Contraindication: Treatment Not Indicated Procedures Date of Service Date of Service: 05/20/21
--- NOTE | 2021-05-20 19:24 | ECG_ITS ---
Test Reason : BRADYCARDIA Blood Pressure : / mmHG Vent. Rate : 040 BPM Atrial Rate : 040 BPM P-R Int : 166 ms QRS Dur : 082 ms QT Int : 500 ms P-R-T Axes : 044 007 006 degrees QTc Int : 407 ms Marked sinus bradycardia Abnormal ECG When compared with ECG of 17-FEB-2020 16:44, Vent. rate has decreased BY 25 BPM Referred By: Rk Kimball Electronically Signed By:Jimbo Belle
[2021-05-20 19:56] LABS: Troponin-I High Sensitivity < 3.5 ng/L (<3.5-17.0)
--- NOTE | 2021-05-20 20:37 | PC.NURSE ---
INSTRUMENT CHECKER APPLIED AFTER EKG. SINUS JOSE MARIA.
[2021-05-20] MEDS: Lactated Ringers 1,000 ML 100 ML IVCONT (21:04)
[2021-05-20 21:33] VITALS: BP 125/69; PULSE 46; RESP 19; TEMP 36.4; O2SAT 100
--- NOTE | 2021-05-20 22:28 | PC.NURSE ---
Pt admitted to unit, very pleasant to converse with. She is concerned about her heart rate being so low, but had said her HR normally sits around mid to low 50's at baseline. Pt is asymptomatic, no complaints of chest pain or dizziness. Other VSS. Md notified of low heart rate and was instructed to notify again if HR <30bpm. If having any pauses or hr becomes lower while sleeping, instructed to wake up. Will closely monitor pt over night. pt has no complaints of pain at this time. Bed in lowest position, brakes on, call merrill within reach.
[2021-05-20 23:14] VITALS: BP 129/82; PULSE 63; RESP 18; TEMP 36.8; O2SAT 99
[2021-05-21] VITALS (7 sets, daily range): BP systolic 119–136; BP diastolic 55–72; PULSE 50–155; RESP 16–20; TEMP 36.4–37; O2SAT 97–99
[2021-05-21] MEDS: Lactated Ringers 1,000 ML 100 ML IVCONT (06:23)
[2021-05-21 07:55] LABS: Alanine Aminotransferase 267 U/L (0-31); Albumin Level 3.7 g/dL (3.5-5.0); Alkaline Phosphatase 231 U/L (39-117); Anion Gap 11 (12-20); Aspartate Amino Transferase 116 U/L (5-31); Bilirubin Direct 4.1 mg/dL (0.0-0.5); Bilirubin Total 5.2 mg/dL (0.0-1.0); Blood Urea Nitrogen 6 mg/dL (9-16); Calcium 8.5 mg/dL (8.4-10.2); Carbon Dioxide 21 mmol/L (22-29); Chloride 110 mmol/L (96-108); Estimated Glomerular Filt Rate > 60; Glucose Random 82 mg/dL (60-115); Potassium 3.4 mmol/L (3.3-5.1); Sodium 139 mmol/L (135-145); Total Protein 6.1 g/dL (6.5-8.0)
--- NOTE | 2021-05-21 08:29 | PM.PNGS ---
Subjective Subjective Date of Service: 05/21/21 Interval history: Some pain on the back Otherwise says she was okay overnight No new complaints Physical Exam Vital Signs: Vital Signs: Last Vital Signs Temp 98.1 F 05/21/21 07:20 Pulse 60 05/21/21 07:20 Resp 19 05/21/21 07:20 BP 134/62 05/21/21 07:20 Pulse Ox 98 05/21/21 07:20 Body Mass Index 32.3 Const: Other: Chemistry 05/20/21 05/21/21 17:45 06:25 Sodium 141 139 Potassium 4.1 3.4 Carbon Dioxide 24 21 L BUN 8 L 6 L Creatinine 0.65 0.55 Calcium 9.7 8.5 D Hematology 05/20/21 17:45 WBC 6.4 Hgb 13.5 Plt Count 260 Urinalysis 05/20/21 17:55 Urine Color DARK YELLOW Urine Appearance HAZY Urine pH 6.0 Ur Specific Gravit y >= 1.030 H Urine Protein TRACE Urine Glucose (UA) NEG Urine Ketones 5 Urine Blood NEG Urine Nitrite POS H Ur Leukocyte Corazon ase TRACE H Urine RBC 0-2 Urine WBC 0 Ur Squamous Epith Cells 1+ Laboratory Results WBC 6.4 X10*3/uL (4.8 -10.8) 05/20/21 17:45 RBC 4.17 X10*6/uL (4. 20-5.50) L 05/20/21 17:45 Hgb 13.5 g/dl (12.0-1 6.0) 05/20/21 17:45 Hct 38.5 % (37-47) 05/20/21 17:45 MCV 92.3 fL (80-98) 05/20/21 17:45 MCH 32.4 pg (27.0-33. 0) 05/20/21 17:45 MCHC 35.1 g/dl (31.0-3 5.0) H 05/20/21 17:45 RDW 11.7 % (11.0-16.0 ) 05/20/21 17:45 Plt Count 260 X10*3/uL (160 -400) 05/20/21 17:45 MPV 9.7 fL (9.4-12.3) 05/20/21 17:45 Immature Gran % (A uto) 0.3 % (0.0-0.4) 05/20/21 17:45 Neut % (Auto) 74.6 % (45-73) H 05/20/21 17:45 Lymph % (Auto) 15.2 % (20-40) L 05/20/21 17:45 Esmeralda % (Auto) 6.7 % (2-11) 05/20/21 17:45 Eos % (Auto) 2.7 % (0-4) 05/20/21 17:45 Baso % (Auto) 0.5 % (0-2) 05/20/21 17:45 Lymph # (Auto) 1.0 X10*3/uL (1.2 -4.9) L 05/20/21 17:45 Esmeralda # (Auto) 0.4 X10*3/uL (0.1 -1.2) 05/20/21 17:45 Eos # (Auto) 0.2 X10*3/uL (0.0 -0.4) 05/20/21 17:45 Baso # (Auto) 0.0 X10*3/uL (0.0 -0.2) 05/20/21 17:45 Abs Immat Gran (au to) 0.02 X10*3/uL (0. 00-0.03) 05/20/21 17:45 Absolute Neuts (au to) 4.8 X10*3/uL (2.0 -8.3) 05/20/21 17:45 Absolute Nucleated RBC 0.000 X10*3/uL (0 .0-0.012) 05/20/21 17:45 Nucleated RBC % (a uto) 0.0 /100WBC (0.0- 0.2) 05/20/21 17:45 PT 12.4 SEC (9.9-13. 0) 05/20/21 17:45 INR 1.1 (0.9-1.1) 05/20/21 17:45 APTT 36.3 SEC (24.1-38 .0) 05/20/21 17:45 Sodium 139 mmol/L (135-1 45) 05/21/21 06:25 Potassium 3.4 mmol/L (3.3-5 .1) 05/21/21 06:25 Chloride 110 mmol/L (96-10 8) H 05/21/21 06:25 Carbon Dioxide 21 mmol/L (22-29) L 05/21/21 06:25 Anion Gap 11 (12-20) L 05/21/21 06:25 BUN 6 mg/dL (9-16) L 05/21/21 06:25 Creatinine 0.55 mg/dL (0.5-1 .4) 05/21/21 06:25 Estim Creat Clear Calc 125.0 05/21/21 06:25 Estimated GFR > 60 05/21/21 06:25 Random Glucose 82 mg/dL (60-115) 05/21/21 06:25 Lactic Acid 0.8 mmol/L (0.5-2 .0) 05/20/21 17:45 Calcium 8.5 mg/dL (8.4-10 .2) D 05/21/21 06:25 Total Bilirubin 5.2 mg/dL (0.0-1. 0) H 05/21/21 06:25 Direct Bilirubin 4.1 mg/dL (0.0-0. 5) H 05/21/21 06:25 AST 116 U/L (5-31) H 05/21/21 06:25 ALT 267 U/L (0-31) H 05/21/21 06:25 Alkaline Phosphata se 231 U/L (39-117) H 05/21/21 06:25 Troponin I High Se ns < 3.5 ng/L (<3.5- 17.0) 05/20/21 17:45 Total Protein 6.1 g/dL (6.5-8.0 ) L 05/21/21 06:25 Albumin 3.7 g/dL (3.5-5.0 ) 05/21/21 06:25 Lipase 22 U/L (8-78) 05/20/21 17:45 Urine Color DARK YELLOW 05/20/21 17:55 Urine Appearance HAZY 05/20/21 17:55 Urine pH 6.0 (5.0-8.0) 05/20/21 17:55 Ur Specific Gravit y >= 1.030 (1.005- 1.025) H 05/20/21 17:55 Urine Protein TRACE MG/DL (NEG- TRACE) 05/20/21 17:55 Urine Glucose (UA) NEG MG/DL (NEG) 05/20/21 17:55 Urine Ketones 5 MG/DL (NEG) 05/20/21 17:55 Urine Blood NEG (NEG) 05/20/21 17:55 Urine Nitrite POS (NEG) H 05/20/21 17:55 Ur Leukocyte Corazon ase TRACE (NEG) H 05/20/21 17:55 Urine RBC 0-2 /HPF (0) 05/20/21 17:55 Urine WBC 0 /HPF (0-4) 05/20/21 17:55 Ur Squamous Epith Cells 1+ /LPF 05/20/21 17:55 Urine Bacteria 1+ /LPF 05/20/21 17:[address] NEGATIVE (NEGATI VE) 05/20/21 17:55 COVID-19 (JULY) Negative (Negati ve) 05/20/21 17:39 COVID-19 Clin Com See Note 05/20/21 17:39 Impressions Abdomen/Pelvis CT 05/20/21 17:13 IMPRESSION: Expected postsurgical changes of the abdomen. No CT evidence for acute abnormality within the abdomen or pelvis. General: comfortable and no acute distress Eyes: Other: Slightly icteric Resp: Effort & Inspection: normal respiratory effort Cardio: Rate: regular rate GI: Other: Very minimal tenderness on the upper abdomen Palpation (GI): Soft to palpation, not firm and no guarding Procedures Date of Service Date of Service: 05/21/21 Progress Note: A&P Assessment and plan (1) Abnormal LFTs (liver function tests): Status: Acute Assessment and Plan: LFTs have stabilized but no significant downtrending Patient appears comfortable but does state she has some pain mostly on the mid back Heart rate low butwithin normal limits Discussed patient with GI - possible MRCP versus ERCP Reviewed plan with patient Fall Risk Details Current Medications: Current Medications Generic Name Dose Route Start Last Admin Trade Name Freq PRN Reason Stop Dose Admin Lactated Ringer's 1,000 mls @ 100 mls/hr 05/20/21 19:45 05/21/21 06:23 Lr IVCONT 100 mls/hr .Q10H EVELIN Administration Morphine Sulfate 3 mg 05/20/21 19:28 Morphine Sulfate 4 Mg/Ml Cartridge IVPUSH Q4H PRN Pain, Severe (Pain Scale 7-10) Ondansetron HCl 4 mg 05/20/21 19:28 Ondansetron Hcl 4 Mg/2 Ml Vial IVPUSH Q8H PRN Nausea and Vomiting Oxycodone HCl 5 mg 05/20/21 19:28 Oxycodone Hcl Immed Release 5 Mg Tablet PO Q6H PRN Pain, Severe (Pain Scale 7-10) Sodium Chloride 3 ml 05/21/21 00:00 05/20/21 23:43 0.9 % Sodium Chloride Flush 3 Ml Syringe IVFLUSH Not Given QSHIFT EVELIN Time Spent With Patient Time: Total time spent is greater than 50% in coordination of care (as documented) at patient's floor/unit and/or counseling patient: Time with patient: 15 - 24 minutes Quality Stroke Does the patient have a stroke diagnosis?: No VTE Prior VTE?: No VTE Risk Level:: Medical - low VTE Device Contraindication: N/A - Device Ordered VTE Drug Contraindication: Treatment Not Indicated
--- NOTE | 2021-05-21 09:56 | MHC.CM.PN ---
EMR REVIEWED, PT ADMITTED W/POST OP PAIN-, ELEVATED LFT'S AND BRADYCARDIA, PT HAD OUTPT [facility] ON 05/16, CM MET W/PT WHO IS A&OX4, PT REPORTS SHE LIVES W/HER 4 CHILDREN, IS INDEPENDENT W/ALL CARE, NO DME & NO HOME SERVICES, PT VERIFIES PCP AND DECLINING HCP. D/C PLAN: HOME SELF-CARE, PT TO ARRANGE TRANSPORT. PCP: SUSI AGUILAR
--- NOTE | 2021-05-21 10:02 | P.CNGI_ITS ---
History of Present Illness Data of Consult Service Date: 05/21/21 Requesting physician: Manav Szymanski Primary Care Provider: Nata Campos MD [facility] Reason for consult: abn LFT ?36-year-old female who I ama sked to see for assessment for abn LFT. She was admitted to the hospital on 04/19/2021 for abn LFt and abdominal pain.? Her CT scan showed cholelithiasis without evidence of cholecystitis.? ?She had an MRI that did not reveal any common bile duct stones.? The patient was then s cheduled for elective cholecystectomy for symptomatic gallstones with transient passage of stones to the common bile duct and she had a laparoscopic cholecystectomy on 05/16/2021 She was doing well until yesterday when she had sudden 0nset pain 10/10- severity, RUQ going into the back and shoulder similar to pain she had before gallbladder removal. She noted ehr eyes were yellow and she had nausea with non bloody emesis. she denies fevers or chills. Stool is normal color. No melena or blood in stool. She had imaging with CT 05/20/21 with no acute changes, subsequent MRCP with normal appearing CBd, stable fluid collection noted around surgical site. Review of Systems Review of Systems: Yes all other systems are reviewed and are negative Constitutional: Constitutional: Denies chills and Denies fever(s) ENT: Reports Normal hearing present Cardiovascular: Cardiovascular: Denies chest pain, Denies dyspnea and Denies dyspnea on exertion Respiratory: Respiratory: Denies cough, Denies dyspnea and Denies dyspnea on exertion Gastrointestinal: Gastrointestinal: Denies hematochezia and Denies change in bowel habits Genitourinary: Genitourinary: Reports no additional female genitourinary complaints Musculoskeletal: Musculoskeletal: Denies back pain and Denies limited range of motion Neurologic: Reports Normal hearing present, Denies focal weakness and Denies convulsions Psychiatric: Psychiatric: Denies depression and Denies mood swings PMFSH Past Medical History Medical History No known health problems Social History Social History Household Members: Children Housing: Apartment Do you presently have visiting nurse or other home services: No Alcohol intake: never Patient Tobacco Use Status: Never used Tobacco service: No Current occupational status: employed Meds Allergies Allergy/AdvReac Type Severity Reaction Status Date / Time No Known Allergies Allergy Verified 04/30/21 13:06 Active Medications: Current Medications Generic Name Dose Route Start Last Admin Trade Name Matthew PRN Reason Stop Dose Admin Lactated Ringer's 1,000 mls @ 100 mls/hr 05/20/21 19:45 05/21/21 06:23 Lr IVCONT 100 mls/hr .Q10H EVELIN Administration Morphine Sulfate 3 mg 05/20/21 19:28 Morphine Sulfate 4 Mg/Ml Cartridge IVPUSH Q4H PRN Pain, Severe (Pain Scale 7-10) Ondansetron HCl 4 mg 05/20/21 19:28 Ondansetron Hcl 4 Mg/2 Ml Vial IVPUSH Q8H PRN Nausea and Vomiting Oxycodone HCl 5 mg 05/20/21 19:28 Oxycodone Hcl Immed Release 5 Mg Tablet PO Q6H PRN Pain, Severe (Pain Scale 7-10) Sodium Chloride 3 ml 05/21/21 00:00 05/21/21 09:02 0.9 % Sodium Chloride Flush 3 Ml Syringe IVFLUSH Not Given QSHIFT [facility] Physical Exam Vital Signs: Vital Signs: Last Vital Signs Temp 98.1 F 05/21/21 07:20 Pulse 60 05/21/21 07:20 Resp 19 05/21/21 07:20 BP 134/62 05/21/21 07:20 Pulse Ox 98 05/21/21 07:20 Body Mass Index 32.3 Const: Other: Chemistry 05/20/21 05/21/21 17:45 06:25 Sodium 141 139 Potassium 4.1 3.4 Carbon Dioxide 24 21 L BUN 8 L 6 L Creatinine 0.65 0.55 Calcium 9.7 8.5 D Hematology 05/20/21 17:45 WBC 6.4 Hgb 13.5 Plt Count 260 Urinalysis 05/20/21 17:55 Urine Color DARK YELLOW Urine Appearance HAZY Urine pH 6.0 Ur Specific Gravit y >= 1.030 H Urine Protein TRACE Urine Glucose (UA) NEG Urine Ketones 5 Urine Blood NEG Urine Nitrite POS H Ur Leukocyte Corazon ase TRACE H Urine RBC 0-2 Urine WBC 0 Ur Squamous Epith Cells 1+ Laboratory Results WBC 6.4 X10*3/uL (4.8 -10.8) 05/20/21 17:45 RBC 4.17 X10*6/uL (4. 20-5.50) L 05/20/21 17:45 Hgb 13.5 g/dl (12.0-1 6.0) 05/20/21 17:45 Hct 38.5 % (37-47) 05/20/21 17:45 MCV 92.3 fL (80-98) 05/20/21 17:45 MCH 32.4 pg (27.0-33. 0) 05/20/21 17:45 MCHC 35.1 g/dl (31.0-3 5.0) H 05/20/21 17:45 RDW 11.7 % (11.0-16.0 ) 05/20/21 17:45 Plt Count 260 X10*3/uL (160 -400) 05/20/21 17:45 MPV 9.7 fL (9.4-12.3) 05/20/21 17:45 Immature Gran % (A uto) 0.3 % (0.0-0.4) 05/20/21 17:45 Neut % (Auto) 74.6 % (45-73) H 05/20/21 17:45 Lymph % (Auto) 15.2 % (20-40) L 05/20/21 17:45 [place]by % (Auto) 6.7 % (2-11) 05/20/21 17:45 Eos % (Auto) 2.7 % (0-4) 05/20/21 17:45 Baso % (Auto) 0.5 % (0-2) 05/20/21 17:45 Lymph # (Auto) 1.0 X10*3/uL (1.2 -4.9) L 05/20/21 17:45 [place] # (Auto) 0.4 X10*3/uL (0.1 -1.2) 05/20/21 17:45 Eos # (Auto) 0.2 X10*3/uL (0.0 -0.4) 05/20/21 17:45 Baso # (Auto) 0.0 X10*3/uL (0.0 -0.2) 05/20/21 17:45 Abs Immat Gran (au to) 0.02 X10*3/uL (0. 00-0.03) 05/20/21 17:45 Absolute Neuts (au to) 4.8 X10*3/uL (2.0 -8.3) 05/20/21 17:45 Absolute Nucleated RBC 0.000 X10*3/uL (0 .0-0.012) 05/20/21 17:45 Nucleated RBC % (a uto) 0.0 /100WBC (0.0- 0.2) 05/20/21 17:45 PT 12.4 SEC (9.9-13. 0) 05/20/21 17:45 INR 1.1 (0.9-1.1) 05/20/21 17:45 APTT 36.3 SEC (24.1-38 .0) 05/20/21 17:45 Sodium 139 mmol/L (135-1 45) 05/21/21 06:25 Potassium 3.4 mmol/L (3.3-5 .1) 05/21/21 06:25 Chloride 110 mmol/L (96-10 8) H 05/21/21 06:25 Carbon Dioxide 21 mmol/L (22-29) L 05/21/21 06:25 Anion Gap 11 (12-20) L 05/21/21 06:25 BUN 6 mg/dL (9-16) L 05/21/21 06:25 Creatinine 0.55 mg/dL (0.5-1 .4) 05/21/21 06:25 Estim Creat Clear Calc 125.0 05/21/21 06:25 Estimated GFR > 60 05/21/21 06:25 Random Glucose 82 mg/dL (60-115) 05/21/21 06:25 Lactic Acid 0.8 mmol/L (0.5-2 .0) 05/20/21 17:45 Calcium 8.5 mg/dL (8.4-10 .2) D 05/21/21 06:25 Total Bilirubin 5.2 mg/dL (0.0-1. 0) H 05/21/21 06:25 Direct Bilirubin 4.1 mg/dL (0.0-0. 5) H 05/21/21 06:25 AST 116 U/L (5-31) H 05/21/21 06:25 ALT 267 U/L (0-31) H 05/21/21 06:25 Alkaline Phosphata se 231 U/L (39-117) H 05/21/21 06:25 Troponin I High Se ns < 3.5 ng/L (<3.5- 17.0) 05/20/21 17:45 Total Protein 6.1 g/dL (6.5-8.0 ) L 05/21/21 06:25 Albumin 3.7 g/dL (3.5-5.0 ) 05/21/21 06:25 Lipase 22 U/L (8-78) 05/20/21 17:45 Urine Color DARK YELLOW 05/20/21 17:55 Urine Appearance HAZY 05/20/21 17:55 Urine pH 6.0 (5.0-8.0) 05/20/21 17:55 Ur Specific Gravit y >= 1.030 (1.005- 1.025) H 05/20/21 17:55 Urine Protein TRACE MG/DL (NEG- TRACE) 05/20/21 17:55 Urine Glucose (UA) NEG MG/DL (NEG) 05/20/21 17:55 Urine Ketones 5 MG/DL (NEG) 05/20/21 17:55 Urine Blood NEG (NEG) 05/20/21 17:55 Urine Nitrite POS (NEG) H 05/20/21 17:55 Ur Leukocyte Corazon ase TRACE (NEG) H 05/20/21 17:55 Urine RBC 0-2 /HPF (0) 05/20/21 17:55 Urine WBC 0 /HPF (0-4) 05/20/21 17:55 Ur Squamous Epith Cells 1+ /LPF 05/20/21 17:55 Urine Bacteria 1+ /LPF 05/20/21 17:[address] NEGATIVE (NEGATI VE) 05/20/21 17:55 COVID-19 (JULY) Negative (Negati ve) 05/20/21 17:39 COVID-19 Clin Com See Note 05/20/21 17:39 Impressions Abdomen/Pelvis CT 05/20/21 17:13 IMPRESSION: Expected postsurgical changes of the abdomen. No CT evidence for acute abnormality within the abdomen or pelvis. General: cooperative, comfortable and no acute distress Orientation/consciousness: oriented to person, oriented to place and patient oriented x3 Limitations: no limitations HENMT: Head: Yes normal to inspection, Yes normocephalic and Yes atraumatic Ears: external ears normal General nose exam: Normal external nose present Face and sinus: Yes normal facial exam Mouth: Normal oral and palatal mucosa present Throat: Yes posterior oropharynx normal Eyes: Other: Slightly icteric Alignment and Position: alignment normal Periorbital: periorbital findings normal Eyelids: Yes eyelids normal Conjunctivae: conjunctivae normal Sclerae: scleral abnormal bilateral (Icteric) Pupils: Equal, round and reactive pupils present Neck: Neck: Yes normal visual inspection, Yes no lymphadenopathy, Yes trachea midline and Yes supple Chest: Chest palpation & inspection: normal inspection of the chest and normal palpation of entire chest wall Resp: Effort & Inspection: normal respiratory effort and able to speak in complete sentences Auscultation: clear to auscultation bilaterally Cardio: Rate: regular rate Rhythm: regular rhythm and other ( bradycardic but asymptomatic) Heart sounds: S1 normal heart sound present, S2 normal heart sound present and no murmurs GI: Other: Very minimal tenderness on the upper abdomen Palpation (GI): Soft to palpation, not firm, Tenderness to palpation present (GI) in the RUQ and no guarding Auscultation: normal bowel sounds : General: Yes no CVA tenderness Back/Spine/Pelvis: Back: no CVA tenderness Skin: Other: Mild jaundice Neuro: General: oriented to person, oriented to place and patient oriented x3 Cranial nerves: Yes CN's II-XII intact bilaterally, Yes Equal, round and reactive pupils present and Yes Normal hearing present Cognition (Neuro): normal cognition Motor exam (neuro): 5/5 motor strength present throughout Extrem: General: Yes normal to inspection Psych: Appearance: grossly normal Speech and movement: Normal speech and movement present Affect: normal affect Attitude: cooperative Thought process: Normal thought process present Thought content: Normal thought content present Results Labs CBC & Chem 7: 05/22/21 05:43 05/22/21 05:43 Labs: Short CBC 05/20/21 Range/Units 17:45 WBC 6.4 (4.8-10.8) X10*3/uL Hgb 13.5 (12.0-16.0) g/dl Hct 38.5 (37-47) % Plt Count 260 (160-400) X10*3/uL BMP 05/20/21 05/21/21 17:45 06:25 Sodium 141 139 Potassium 4.1 3.4 Chloride 109 H 110 H Carbon Dioxide 24 21 L BUN 8 L 6 L Creatinine 0.65 0.55 Calcium 9.7 8.5 D Liver Function 05/20/21 05/21/21 Range/Units 17:45 06:25 Total Bilirubin 5.6 H 5.2 H (0.0-1.0) mg/dL Direct Bilirubin 4.0 H 4.1 H (0.0-0.5) mg/dL AST 197 H 116 H (5-31) U/L ALT 352 H 267 H (0-31) U/L Alkaline Phosphatase 246 H D 231 H (39-117) U/L Albumin 4.4 3.7 (3.5-5.0) g/dL Urine 05/20/21 Range/Units 17:55 Urine Color DARK YELLOW Urine Appearance HAZY Urine pH 6.0 (5.0-8.0) Ur Specific [place] >= 1.030 H (1.005-1.025) Urine Protein TRACE (NEG-TRACE) MG/DL Urine Glucose (UA) NEG (NEG) MG/DL Assessment and Plan (1) Abnormal LFTs (liver function tests): Status: Acute 1/Abn LFt with pain similar to admission before cholecystectomy, suspic ious for retained stone ddx: bile leak, SOD dysfunction type II--time course and history dont; support a primary liver etiology such as acute viral hepatitis, AIH, wilsons, no sign of budd chiari PLAN: 1/ ERCP for further assessment and treatment Procedures Date of Service Date of Service: 05/21/21
--- NOTE | 2021-05-21 12:16 | P.CONIM_ITS ---
History of Present Illness Data of Consult Service Date: 05/21/21 Primary Care Provider: Nata Campos MD HPI Reason for consult: Bradycardia This is a 36 yo F with no significant PMH who underwent lap josé miguel on 05/16/21 and was doing fairly well. SHe presented on 05/20 with complaints of epigastric pain, which has since improved. Medical consult was sought for sinus bradycardia. Patient is seen and examined in her room. She denies any symptoms of bradycardia. She endorses that her HR is generally in the 50s and 60s. She denies any history of thyroid disease. She denies any history of ABBI. She endorses that her mother also has low resting HR. She denies any current nausea or vomiting Of note, patients HR does improve with exertion, as high as 130-150s. Review of Systems Review of Systems: General - no fevers or chills Cardiovascular - no chest pain Respiratory - no shortness of breath or cough Abdominal- no abdominal pain, nausea, vomiting, diarrhea PMFSH Medical History No known health problems Pertinent family history: Bradycardia in mother Social History Household Members: Children Housing: Apartment Do you presently have visiting nurse or other home services: No Alcohol intake: never Patient Tobacco Use Status: Never used Tobacco Use of substances other than those prescribed or required for medical reasons: No Currently Displaying Signs/Symptoms of Drug Intoxication Withdrawal: No Have you been hit, kicked, punched, or otherwise hurt by someone within the past year? If so, by whom?: No Do you feel safe in your current relationship?: Yes Is there a partner from a previous relationship who is making you feel unsafe now?: No Are you made to feel afraid or neglected: No Advance Directives: No Advance Directives Information Provided: Yes Do you have thoughts of harming others: None Do you have a plan to hurt others: No Plan Recently lost weight without trying: No Nutrition Risks: No Nutritional Risk Patient : No : No Poor oral hygiene: No service: No Current occupational status: employed Meds Allergies Allergy/AdvReac Type Severity Reaction Status Date / Time No Known Allergies Allergy Verified 04/30/21 13:06 Active Medications: Current Medications Generic Name Dose Route Start Last Admin Trade Name Freq PRN Reason Stop Dose Admin Lactated Ringer's 1,000 mls @ 100 mls/hr 05/20/21 19:45 05/21/21 06:23 Lr IVCONT 100 mls/hr .Q10H EVELIN Administration Morphine Sulfate 3 mg 05/20/21 19:28 Morphine Sulfate 4 Mg/Ml Cartridge IVPUSH Q4H PRN Pain, Severe (Pain Scale 7-10) Ondansetron HCl 4 mg 05/20/21 19:28 Ondansetron Hcl 4 Mg/2 Ml Vial IVPUSH Q8H PRN Nausea and Vomiting Oxycodone HCl 5 mg 05/20/21 19:28 Oxycodone Hcl Immed Release 5 Mg Tablet PO Q6H PRN Pain, Severe (Pain Scale 7-10) Sodium Chloride 3 ml 05/21/21 00:00 05/21/21 09:02 0.9 % Sodium Chloride Flush 3 Ml Syringe IVFLUSH Not Given QSHIFT [facility] Physical Exam Vital Signs and Narrative: Vital Signs: Last Vital Signs Temp 98.2 F 05/21/21 12:00 Pulse 55 05/21/21 12:00 Resp 18 05/21/21 12:00 BP 119/55 L 05/21/21 12:00 Pulse Ox 98 05/21/21 12:00 Body Mass Index 32.3 Const: Other: General - no acute distress, appears comfortable Cardiovascular - regular rate and rhythm, S1-S2 Lungs - normal respiratory effort, clear to auscultation bilaterally, no wheezing Abdomen - soft, nontender, no rebound or guarding Extremities - no edema bilaterally Neuro - awake and alert, no focal deficits Results Labs CBC and Chem 7: 05/20/21 17:45 05/21/21 06:25 Labs: Laboratory Results - last 24 hr 05/20/21 05/20/21 05/20/21 17:39 17:45 17:45 MCV 92.3 MCH 32.4 MCHC 35.1 H RDW 11.7 Plt Count 260 MPV 9.7 Immature Gran % (Auto) 0.3 Neut % (Auto) 74.6 H Lymph % (Auto) 15.2 L [place] % (Auto) 6.7 Eos % (Auto) 2.7 Baso % (Auto) 0.5 Lymph # (Auto) 1.0 L [place] # (Auto) 0.4 Eos # (Auto) 0.2 Baso # (Auto) 0.0 Abs Immat Gran (auto) 0.02 Absolute Neuts (auto) 4.8 Absolute Nucleated RBC 0.000 Nucleated RBC % (auto) 0.0 PT 12.4 INR 1.1 APTT 36.3 Anion Gap Estim Creat Clear Calc Estimated GFR Random Glucose Lactic Acid Calcium Total Bilirubin Direct Bilirubin AST ALT Alkaline Phosphatase Troponin I High Sens Total Protein Albumin Lipase Urine Color Urine Appearance Urine pH Ur Specific [place] Urine Protein Urine Glucose (UA) Urine Ketones Urine Blood Urine Nitrite Ur Leukocyte Esterase Urine RBC Urine WBC Ur Squamous Epith Cells Urine Bacteria Urine Test COVID-19 (JULY) Negative COVID-19 Clin Com See Note 05/20/21 05/20/21 05/20/21 17:45 17:45 17:45 MCV MCH MCHC RDW Plt Count MPV Immature Gran % (Auto) Neut % (Auto) Lymph % (Auto) [place] % (Auto) Eos % (Auto) Baso % (Auto) Lymph # (Auto) [place] # (Auto) Eos # (Auto) Baso # (Auto) Abs Immat Gran (auto) Absolute Neuts (auto) Absolute Nucleated RBC Nucleated RBC % (auto) PT INR APTT Anion Gap 12 Estim Creat Clear Calc 105.7 Estimated GFR > 60 Random Glucose 96 Lactic Acid 0.8 Calcium 9.7 Total Bilirubin 5.6 H Direct Bilirubin 4.0 H AST 197 H ALT 352 H Alkaline Phosphatase 246 H D Troponin I High Sens < 3.5 Total Protein 7.3 Albumin 4.4 Lipase 22 Urine Color Urine Appearance Urine pH Ur Specific [place] Urine Protein Urine Glucose (UA) Urine Ketones Urine Blood Urine Nitrite Ur Leukocyte Esterase Urine RBC Urine WBC Ur Squamous Epith Cells Urine Bacteria Urine Test COVID-19 (JULY) COVID-19 Clin Com 05/20/21 05/20/21 05/21/21 17:55 17:55 06:25 MCV MCH MCHC RDW Plt Count MPV Immature Gran % (Auto) Neut % (Auto) Lymph % (Auto) [place] % (Auto) Eos % (Auto) Baso % (Auto) Lymph # (Auto) [place] # (Auto) Eos # (Auto) Baso # (Auto) Abs Immat Gran (auto) Absolute Neuts (auto) Absolute Nucleated RBC Nucleated RBC % (auto) PT INR APTT Anion Gap 11 L Estim Creat Clear Calc 125.0 Estimated GFR > 60 Random Glucose 82 Lactic Acid Calcium 8.5 D Total Bilirubin 5.2 H Direct Bilirubin 4.1 H AST 116 H ALT 267 H Alkaline Phosphatase 231 H Troponin I High Sens Total Protein 6.1 L Albumin 3.7 Lipase Urine Color DARK YELLOW Urine Appearance HAZY Urine pH 6.0 Ur Specific [place] >= 1.030 H Urine Protein TRACE Urine Glucose (UA) NEG Urine Ketones 5 Urine Blood NEG Urine Nitrite POS H Ur Leukocyte Esterase TRACE H Urine RBC 0-2 Urine WBC 0 Ur Squamous Epith Cells 1+ Urine Bacteria 1+ Urine Test NEGATIVE COVID-19 (JULY) COVID-19 Clin Com Imaging Radiologist's Impressions: Impressions Abdomen/Pelvis CT 05/20/21 17:13 IMPRESSION: Expected postsurgical changes of the abdomen. No CT evidence for acute abnormality within the abdomen or pelvis. Cholangiopancreatography MRI 05/21/21 11:02 IMPRESSION: Stable 1.3 x 3.2 cm fluid collection in the gallbladder fossa post cholecystectomy. No intra or extrahepatic biliary duct dilatation or common bile duct stone seen. If there is clinical suspicion of a bile leak, HIDA scan would be recommended. There is no significant ascites. Assessment and Plan (1) Bradycardia: Status: Acute This is a 36 yo F admitted under surgery for post-op pain. She was noted to be bradycardic and hence medical services were consulted. 1. Sinus Bradycardia asymptomatic tele reviewed -- HR down to the 30s at night; 40/50s during the day; no heart block alerts HR increased to 140s with minimal exertion to the bathroom will check TSH w/ reflex T4 unlikely a significant finding, but nontheless, will ask cardiology to see her continue monitor on tele d/w cardiology -- will see the patient; will get echo in the mean time 2. Elevated LFTs defer work up mgmt to GI / Gen Surg will follow with you
[2021-05-21 13:20] LABS: TSH reflex Free T4 0.62 uIU/mL (0.32-4.0)
--- NOTE | 2021-05-21 14:00 | CA_ITS ---
Transthoracic Echocardiogram Patient (Last, First, Middle): Sana Maldonado, Gender: Female Date of : 1985 Age: 36 Procedure Date: 05/21/2021 Procedure Type: Transthoracic [place] [facility] [place]: 149.86 cm Weight: 72.58 kg BSA: 1.68 m2 Heart Rate: bpm BP: 119 / 55 mmHg Parts Back Counter Man: VH/CP Referring MD: Elliot Merrill MD Symptoms: sinus bradycardia Study Quality: Fair ECG Rhythm: Sinus Conclusions: - Normal left ventricular size, thickness, systolic function, and wall motion. - Normal right ventricular cavity size and systolic function. - No significant valvular or pericardial pathology. Findings Left Ventricle Normal left ventricular size, thickness, systolic function, and wall motion. The visually estimated ejection fraction is between 55-60%. Diastolic function is normal for age. Right Ventricle Normal right ventricular cavity size and systolic function. Atria Both atria are normal in size. Aortic Valve Normal aortic valve structure and function. There is no aortic valve stenosis. There is no aortic valve regurgitation. Mitral Valve Normal mitral valve structure and function. There is no mitral valve regurgitation. There is no mitral valve stenosis. Pulmonic Valve Normal pulmonic valve structure and function. There is trace pulmonic valve regurgitation. Tricuspid Valve Normal tricuspid valve structure and function. There is trace tricuspid valve regurgitation. Tricuspid regurgitation envelope is inadequate for calculation of right ventricular systolic pressure. Normal right atrial pressure. Great Vessels All visible segments of the aorta are normal in size. The visualized portions of the pulmonary artery and branches are normal. Venous The inferior vena cava is normal in size and collapses greater than 50% with inspiration. Pericardium/Pleural There is no evidence of pericardial effusion. Prior Study Comparison No prior study available for comparison. Measurements 2D Linear Measurements IVSd: 0.76 0.6-0.9/0.6-1.0 cm LVIDd: 4.97 3.9-5.3/4.2-5.9 cm LVIDd Index: 2.96 2.4-3.2/2.2-3.1 cm/m2 LVIDs: 3.26 2.0-3.6 cm LVPWd: 0.73 0.7-1.1 cm Ao Root: 2.90 2.1-3.5 cm LA Diam: 3.50 2.7-3.8/3.0-4.0 cm LAIDs Index: 2.08 1.5-2.3 cm/m2 LV Mass: 152.05 67-162/88-224 g LV Mass Index: 90.50 43-95/49-115 g/m2 LVOT Diam: 2.20 3.0+(-)1.3 cm Mitral Valve MV Pk E: 0.75 MV PK A: 0.48 MV Decel Time: 366.00 E/A: 1.50 E'Lateral: 15.00 E'Medial: 12.10 E/E' Med: 6.20 E/E' Lat: 5.00 PHT: 107.00 MVA PHT: 2.06 Decel [place]: 2.05 Aortic Valve AoV Pk Prashant: 1.45 AoV Mn Prashant: 0.87 AoV VTI: 0.29 AoV Pk Grad: 8.00 Aov Mn Grad: 4.00 YESENIA Cont.VTI: 3.22 LVOT LVOT Pk Prashant: 1.09 LVOT Mn Prashant: 0.66 LVOT VTI: 0.24 LVOT Pk Grad: 5.00 LVOT Mn Grad: 2.00 LVOT Diam: 2.20 LVOT Area: 3.80 Diastolic Function MV Pk E: 0.75 MV Pk A: 0.48 E/A: 1.50 E'Medial: 12.10 E/E' Med: 6.20 E' Laterial: 15.00 E/E' Lat: 5.00 Right Ventricle TAPSE (mm): 2.60 TVS' Prashant: 17.00 Tricuspid Valve TR Pk Prashant: 1.72 TR Pk Grad: 12.00 Great Vessels Aorta Ao Root-2D: 2.90 2.0-3.7 cm Ao Asc: 3.00 2.1-3.4 cm Updated in Other Vendor System with Status of Final Jimbo Belle MD electronically signed on 05/21/2021 9:45:18 PM with status of Final
--- NOTE | 2021-05-21 16:16 | PM.EVENT ---
Event Note Date of Service: 05/21/21 Event Note: Feels better Less pain Tolerating diet MRI reviewed - small amount of fluid in the gallbladder fossa, no obvious CBD stone Seen by GI - ERCP plan tomorrow; sphincterotomy Possible small bile leak versus CBD stone? Stable and looks well otherwise
[2021-05-21] MEDS: Lactated Ringers 1,000 ML 80 ML IVCONT (17:55)
[2021-05-22] VITALS (13 sets, daily range): BP systolic 111–137; BP diastolic 57–76; PULSE 46–78; RESP 14–20; TEMP 36.1–37.3; O2SAT 96–100
[2021-05-22] MEDS: Lactated Ringers 1,000 ML 80 ML IVCONT ×2 (05:33→23:51)
[2021-05-22 06:45] LABS: MANUAL DIFF FLAG NO
[2021-05-22 06:51] LABS: Basophils Percent Auto 0.4 % (0-2); Eosinophils Absolute Auto 0.1 X10*3/uL (0.0-0.4); Eosinophils Percent Auto 2.3 % (0-4); Hematocrit 37.7 % (37-47); Hemoglobin 13.2 g/dl (12.0-16.0); Imm Gran Abs Auto 0.02 X10*3/uL (0.00-0.03); Imm Gran Pct Auto 0.4 % (0.0-0.4); Lymphocytes Absolute Auto 0.9 X10*3/uL (1.2-4.9); Lymphocytes Percent Auto 16.1 % (20-40); Mean Corpuscular Hemoglobin 31.7 pg (27.0-33.0); Mean Corpuscular Volume 90.6 fL (80-98); Mean Platelet Volume 10.1 fL (9.4-12.3); Monocytes Absolute Auto 0.4 X10*3/uL (0.1-1.2); Monocytes Percent Auto 8.2 % (2-11); Neutrophils Absolute Auto 3.8 X10*3/uL (2.0-8.3); Neutrophils Percent Auto 72.6 % (45-73); Platelet Count 278 X10*3/uL (160-400); Red Blood Count 4.16 X10*6/uL (4.20-5.50); Red Cell Distribution Width 11.6 % (11.0-16.0); White Blood Count 5.3 X10*3/uL (4.8-10.8)
[2021-05-22 07:21] LABS: Anion Gap 14 (12-20); Blood Urea Nitrogen 6 mg/dL (9-16); Calcium 8.8 mg/dL (8.4-10.2); Carbon Dioxide 21 mmol/L (22-29); Chloride 106 mmol/L (96-108); Creatinine Clr Calc Pharmacy 114.6; Estimated Glomerular Filt Rate > 60; Glucose Fasting 66 mg/dL (60-99); Potassium 3.4 mmol/L (3.3-5.1); Sodium 138 mmol/L (135-145)
[2021-05-22 08:18] LABS: Alanine Aminotransferase 225 U/L (0-31); Albumin Level 3.6 g/dL (3.5-5.0); Alkaline Phosphatase 283 U/L (39-117); Aspartate Amino Transferase 89 U/L (5-31); Bilirubin Total 5.3 mg/dL (0.0-1.0); Total Protein 6.3 g/dL (6.5-8.0)
--- NOTE | 2021-05-22 08:26 | PM.PNGS ---
Subjective Subjective Date of Service: 05/22/21 <Chasity Mendez PA-C - Last Filed: 05/22/21 08:32> 05/22/21 <Manav Szymanski MD - Last Filed: 05/22/21 08:40> Interval history: Feels ok. No new complaints. Awaiting ERCP today. <Chasity Mendez PA-C - Last Filed: 05/22/21 08:32> Physical Exam Vital Signs: Vital Signs: Last Vital Signs Temp 97 F 05/22/21 06:51 Pulse 63 05/22/21 06:51 Resp 18 05/22/21 06:51 BP 111/57 L 05/22/21 06:51 Pulse Ox 96 05/22/21 06:51 Body Mass Index 32.3 <EVERTON Osorio Last Filed: 05/22/21 08:32> Const: General: healthy appearing, comfortable, no acute distress and alert <EVERTON Osorio Last Filed: 05/22/21 08:32> Orientation/consciousness: patient oriented x3 <Chasity Mendez PA-C - Last Filed: 05/22/21 08:32> Eyes: Sclerae: scleral abnormal (icteric) <EVERTON Osorio Last Filed: 05/22/21 08:32> Resp: Effort & Inspection: normal respiratory effort <Chasity Mendez PA-C - Last Filed: 05/22/21 08:32> GI: Inspection: No distended and Yes incision (clean) <Chasity Mendez PA-C - Last Filed: 05/22/21 08:32> Palpation (GI): Soft to palpation, Tenderness to palpation present (GI) (mild incisional), no guarding and not rigid <EVERTON Osorio Last Filed: 05/22/21 08:32> Percussion: Yes normal to percussion <EVERTON Osorio Last Filed: 05/22/21 08:32> Skin: General skin exam: no rashes or lesions noted and jaundice <EVERTON Osorio Last Filed: 05/22/21 08:32> Neuro: General: patient oriented x3 <Chasity Mendez PA-C - Last Filed: 05/22/21 08:32> Extrem: General: Yes no clubbing, cyanosis or edema <Chasity Mendez PA-C - Last Filed: 05/22/21 08:32> Procedures Date of Service Date of Service: 05/22/21 <EVERTON Osorio Last Filed: 05/22/21 08:32> Progress Note: A&P Assessment and plan (1) Abnormal LFTs (liver function tests): Status: Acute <Chasity Mendez PA-C - Last Filed: 05/22/21 08:32> Assessment and Plan: States that she feels better although with some back pain Denies abdominal pain Looks well Abdomen soft Bilirubin elevated For ERCP today, likely sphincterotomy and stenting May have a small leak versus retained stone in the CBD Seen and examined - agree with AMINAH Mendez <Manav Szymanski MD - Last Filed: 05/22/21 08:40> Assessment and Plan: 36 year old female 1 week post op s/p laparoscopic cholecystectomy for gallstones admitted for elevated LFTs. LFTs unchanged this morning. ERCP planned for later today with Dr. Baker. Further plan dependent on course. <Chasity Mendez PA-C - Last Filed: 05/22/21 08:32> Fall Risk Details Current Medications: Current Medications Generic Name Dose Route Start Last Admin Trade Name Freq PRN Reason Stop Dose Admin Lactated Ringer's 1,000 mls @ 80 mls/hr 05/20/21 19:45 05/22/21 05:33 Lr IVCONT 80 mls/hr .[id number] EVELIN Administration Morphine Sulfate 3 mg 05/20/21 19:28 Morphine Sulfate 4 Mg/Ml Cartridge IVPUSH Q4H PRN Pain, Severe (Pain Scale 7-10) Ondansetron HCl 4 mg 05/20/21 19:28 Ondansetron Hcl 4 Mg/2 Ml Vial IVPUSH Q8H PRN Nausea and Vomiting Oxycodone HCl 5 mg 05/20/21 19:28 Oxycodone Hcl Immed Release 5 Mg Tablet PO Q6H PRN Pain, Severe (Pain Scale 7-10) Sodium Chloride 3 ml 05/21/21 00:00 05/22/21 00:28 0.9 % Sodium Chloride Flush 3 Ml Syringe IVFLUSH Not Given QSHIFT [facility] <Chasity Mendez PA-C - Last Filed: 05/22/21 08:32> Time Spent With Patient Time: Total time spent is greater than 50% in coordination of care (as documented) at patient's floor/unit and/or counseling patient: <Chasity Menedz PA-C - Last Filed: 05/22/21 08:32> Time with patient: 15 - 24 minutes <Chasity Mendez PA-C - Last Filed: 05/22/21 08:32> Quality Stroke Does the patient have a stroke diagnosis?: No <Chasity Mendez PA-C - Last Filed: 05/22/21 08:32> VTE Prior VTE?: No <Chasity Mendez PA-C - Last Filed: 05/22/21 08:32> VTE Risk Level:: Medical - low <Chasity Mendez PA-C - Last Filed: 05/22/21 08:32> VTE Device Contraindication: N/A - Device Ordered <Chasity Mendez PA-C - Last Filed: 05/22/21 08:32> VTE Drug Contraindication: Treatment Not Indicated <Chasity Mendez PA-C - Last Filed: 05/22/21 08:32>
--- NOTE | 2021-05-22 11:00 | HO.PM.IMPN ---
Subjective Subjective Date of Service: 05/22/21 Interval History: seen and examined continues to deny bradycardia symptoms no abd pain this AM denies fevers or chills Review of Systems General - no fevers or chills Cardiovascular - no chest pain Respiratory - no shortness of breath or cough Abdominal- no abdominal pain, nausea, vomiting, diarrhea Physical Exam Vital Signs: Vital Signs: Last Vital Signs Temp 97 F 05/22/21 06:51 Pulse 63 05/22/21 06:51 Resp 18 05/22/21 06:51 BP 111/57 L 05/22/21 06:51 Pulse Ox 96 05/22/21 06:51 Body Mass Index 32.3 Const: Other: General - no acute distress, appears comfortable Cardiovascular - regular rate and rhythm, S1-S2 Lungs - normal respiratory effort, clear to auscultation bilaterally, no wheezing Abdomen - soft, nontender, no rebound or guarding Extremities - no edema bilaterally Neuro - awake and alert, no focal deficits Objective Data Current Medications Generic Name Dose Route Start Last Admin Trade Name Freq PRN Reason Stop Dose Admin Lactated Ringer's 1,000 mls @ 80 mls/hr 05/20/21 19:45 05/22/21 05:33 Lr IVCONT 80 mls/hr .[id number] EVELIN Administration Morphine Sulfate 3 mg 05/20/21 19:28 Morphine Sulfate 4 Mg/Ml Cartridge IVPUSH Q4H PRN Pain, Severe (Pain Scale 7-10) Ondansetron HCl 4 mg 05/20/21 19:28 Ondansetron Hcl 4 Mg/2 Ml Vial IVPUSH Q8H PRN Nausea and Vomiting Oxycodone HCl 5 mg 05/20/21 19:28 Oxycodone Hcl Immed Release 5 Mg Tablet PO Q6H PRN Pain, Severe (Pain Scale 7-10) Sodium Chloride 3 ml 05/21/21 00:00 05/22/21 08:44 0.9 % Sodium Chloride Flush 3 Ml Syringe IVFLUSH Not Given QSHIFT [facility] Labs CBC & Chem 7: 05/22/21 05:43 05/22/21 05:43 Labs: Laboratory Results - last 24 hr 05/21/21 05/22/21 05/22/21 06:25 05:43 05:43 MCV 90.6 MCH 31.7 MCHC 35.0 RDW 11.6 Plt Count 278 MPV 10.1 Immature Gran % (Auto) 0.4 Neut % (Auto) 72.6 Lymph % (Auto) 16.1 L [place] % (Auto) 8.2 Eos % (Auto) 2.3 Baso % (Auto) 0.4 Lymph # (Auto) 0.9 L [place] # (Auto) 0.4 Eos # (Auto) 0.1 Baso # (Auto) 0.0 Abs Immat Gran (auto) 0.02 Absolute Neuts (auto) 3.8 Absolute Nucleated RBC 0.000 Nucleated RBC % (auto) 0.0 Anion Gap 14 Estim Creat Clear Calc 114.6 Estimated GFR > 60 Fasting Glucose 66 Calcium 8.8 Total Bilirubin 5.3 H Direct Bilirubin 4.0 H AST 89 H ALT 225 H Alkaline Phosphatase 283 H D Total Protein 6.3 L Albumin 3.6 TSH 0.62 Microbiology Microbiology Results: Microbiology 05/20/21 18:17 Urine Culture - Final Urine clean catch - Urine boyle top No growth. 05/20/21 17:46 Blood Culture - Preliminary Blood - Venous No growth after 24 hours. 05/20/21 17:46 Blood Culture - Preliminary Blood - Venous No growth after 24 hours. Assessment and Plan (1) Bradycardia: Status: Acute Assessment and Plan: This is a 36 yo F admitted under surgery for post-op pain. She was noted to be bradycardic and hence medical services were consulted. 1. Sinus Bradycardia asymptomatic, no blocks on tele TSH wnl Echo wnl cardiology to see her today 2. Elevated LFTs defer work up mgmt to GI / Gen Surg will follow as needed Quality Stroke Does the patient have a stroke diagnosis?: No VTE Prior VTE?: No VTE Risk Level:: Medical - low VTE Device Contraindication: N/A - Device Ordered VTE Drug Contraindication: Treatment Not Indicated
--- NOTE | 2021-05-22 11:29 | PM.PNCARD ---
Subjective Subjective Date of Service: 05/22/21 Interval history: Seen and examined Full consult to follow. Nausea and abdominal pain. Noticed to be bradycardic without symptoms. No heart block. Likely due to high vagal tone due to pain/nausea. Low risk for periop complications. May need atropine in case symptomatic. Physical Exam Vital Signs: Last Vital Signs Temp 99.2 F 05/22/21 11:17 Pulse 74 05/22/21 11:17 Resp 18 05/22/21 11:17 BP 118/63 05/22/21 11:17 Pulse Ox 99 05/22/21 11:17 Body Mass Index 32.3 Results Labs and Meds Result diagrams: 05/22/21 05:43 05/22/21 05:43 Lab results: Laboratory Results - last 24 hr 05/21/21 05/22/21 05/22/21 06:25 05:43 05:43 WBC 5.3 RBC 4.16 L Hgb 13.2 Hct 37.7 MCV 90.6 MCH 31.7 MCHC 35.0 RDW 11.6 Plt Count 278 MPV 10.1 Immature Gran % (Auto) 0.4 Neut % (Auto) 72.6 Lymph % (Auto) 16.1 L [place] % (Auto) 8.2 Eos % (Auto) 2.3 Baso % (Auto) 0.4 Lymph # (Auto) 0.9 L [place] # (Auto) 0.4 Eos # (Auto) 0.1 Baso # (Auto) 0.0 Abs Immat Gran (auto) 0.02 Absolute Neuts (auto) 3.8 Absolute Nucleated RBC 0.000 Nucleated RBC % (auto) 0.0 Sodium 138 Potassium 3.4 Chloride 106 Carbon Dioxide 21 L Anion Gap 14 BUN 6 L Creatinine 0.60 Estim Creat Clear Calc 114.6 Estimated GFR > 60 Fasting Glucose 66 Calcium 8.8 Total Bilirubin 5.3 H Direct Bilirubin 4.0 H AST 89 H ALT 225 H Alkaline Phosphatase 283 H D Total Protein 6.3 L Albumin 3.6 TSH 0.62 Imaging Radiologist's impression: Impressions Cholangiopancreatography MRI 05/21/21 11:02 IMPRESSION: Stable 1.3 x 3.2 cm fluid collection in the gallbladder fossa post cholecystectomy. No intra or extrahepatic biliary duct dilatation or common bile duct stone seen. If there is clinical suspicion of a bile leak, HIDA scan would be recommended. There is no significant ascites. Progress Note: A&P Fall Risk Details Current Medications: Current Medications Generic Name Dose Route Start Last Admin Trade Name Freq PRN Reason Stop Dose Admin Lactated Ringer's 1,000 mls @ 80 mls/hr 05/20/21 19:45 05/22/21 05:33 Lr IVCONT 80 mls/hr .[id number] EVELIN Administration Morphine Sulfate 3 mg 05/20/21 19:28 Morphine Sulfate 4 Mg/Ml Cartridge IVPUSH Q4H PRN Pain, Severe (Pain Scale 7-10) Ondansetron HCl 4 mg 05/20/21 19:28 Ondansetron Hcl 4 Mg/2 Ml Vial IVPUSH Q8H PRN Nausea and Vomiting Oxycodone HCl 5 mg 05/20/21 19:28 Oxycodone Hcl Immed Release 5 Mg Tablet PO Q6H PRN Pain, Severe (Pain Scale 7-10) Sodium Chloride 3 ml 05/21/21 00:00 05/22/21 08:44 0.9 % Sodium Chloride Flush 3 Ml Syringe IVFLUSH Not Given QSHIFT EVELIN Time Spent With Patient Time: Total time spent is greater than 50% in coordination of care (as documented) at patient's floor/unit and/or counseling patient: Time with patient: 15 - 24 minutes Progress Note: Quality Stroke Does the patient have a stroke diagnosis?: No Procedures Date of Service Date of Service: 05/22/21
--- NOTE | 2021-05-22 12:56 | PC.NURSE ---
DR. ASH SPOKE WITH DR. VALDEZ MD REGARDING PATIENT'S BRADYCARDIA AND THE CARDIOLOGY REPORT COMPLETED TODAY FOR CARDIAC CLEARANCE. DR. KELLOGG CLEARED PATIENT FOR THE ERCP.
--- NOTE | 2021-05-22 13:38 | P.CONAN_ITS ---
HPI - Anesthesia Eval Consult details Narrative: abdominal pain s/ cholecystectomy PMFSH Active Problems Active Problems: All Active Problems (Updated 05/20/21 @ 19:33 by Rk Kimball MD) Abnormal LFTs (liver function tests) (Acute) Bradycardia (Acute) Gallbladder stone without cholecystitis or obstruction (Acute) Past Medical History Medical History No known health problems Cognitive capacity: AoX3 Functional capacity: independent ambulation Family History Family history of problems with anesthesia: No Surgical History History of Problems with Anesthesia: No Social History Social History Household Members: Children Housing: Apartment Do you presently have visiting nurse or other home services: No Alcohol intake: never Patient Tobacco Use Status: Never used Tobacco service: No Current occupational status: employed Meds Allergies Allergy/AdvReac Type Severity Reaction Status Date / Time No Known Allergies Allergy Verified 04/30/21 13:06 Active Medications: Current Medications Generic Name Dose Route Start Last Admin Trade Name Freq PRN Reason Stop Dose Admin Lactated Ringer's 1,000 mls @ 80 mls/hr 05/20/21 19:45 05/22/21 05:33 Lr IVCONT 80 mls/hr .[id number] EVELIN Administration Morphine Sulfate 3 mg 05/20/21 19:28 Morphine Sulfate 4 Mg/Ml Cartridge IVPUSH Q4H PRN Pain, Severe (Pain Scale 7-10) Ondansetron HCl 4 mg 05/20/21 19:28 05/22/21 11:56 Ondansetron Hcl 4 Mg/2 Ml Vial IVPUSH 4 mg Q8H PRN Administration Nausea and Vomiting Oxycodone HCl 5 mg 05/20/21 19:28 Oxycodone Hcl Immed Release 5 Mg Tablet PO Q6H PRN Pain, Severe (Pain Scale 7-10) Sodium Chloride 3 ml 05/21/21 00:00 05/22/21 08:44 0.9 % Sodium Chloride Flush 3 Ml Syringe IVFLUSH Not Given QSHIFT [facility] Exam Exam Date and Time: May 22, 2021 1338 Height,Weight and Vital Signs: Height 4 ft 11 in Weight 72.575 kg Last Vital Signs Temp 98.0 F 05/22/21 13:19 Pulse 62 05/22/21 13:19 Resp 18 05/22/21 13:19 BP 119/62 05/22/21 13:19 Pulse Ox 97 05/22/21 13:19 Pertinent Lab Results Pertinent Lab Results: Laboratory Tests 05/20/21 05/20/21 05/20/21 17:39 17:45 17:45 WBC 6.4 RBC 4.17 L Hgb 13.5 Hct 38.5 MCV 92.3 MCH 32.4 MCHC 35.1 H RDW 11.7 Plt Count 260 MPV 9.7 Immature Gran % (Auto) 0.3 Neut % (Auto) 74.6 H Lymph % (Auto) 15.2 L Leslie % (Auto) 6.7 Eos % (Auto) 2.7 Baso % (Auto) 0.5 Lymph # (Auto) 1.0 L Leslie # (Auto) 0.4 Eos # (Auto) 0.2 Baso # (Auto) 0.0 Abs Immat Gran (auto) 0.02 Absolute Neuts (auto) 4.8 Absolute Nucleated RBC 0.000 Nucleated RBC % (auto) 0.0 PT 12.4 INR 1.1 APTT 36.3 Sodium Potassium Chloride Carbon Dioxide Anion Gap BUN Creatinine Estim Creat Clear Calc Estimated GFR Random Glucose Fasting Glucose Lactic Acid Calcium Total Bilirubin Direct Bilirubin AST ALT Alkaline Phosphatase Troponin I High Sens Total Protein Albumin Lipase TSH Urine Color Urine Appearance Urine pH Ur Specific [place] Urine Protein Urine Glucose (UA) Urine Ketones Urine Blood Urine Nitrite Ur Leukocyte Esterase Urine RBC Urine WBC Ur Squamous Epith Cells Urine Bacteria Urine Test COVID-19 (JULY) Negative COVID-19 Clin Com See Note 05/20/21 05/20/21 05/20/21 17:45 17:45 17:45 WBC RBC Hgb Hct MCV MCH MCHC RDW Plt Count MPV Immature Gran % (Auto) Neut % (Auto) Lymph % (Auto) Leslie % (Auto) Eos % (Auto) Baso % (Auto) Lymph # (Auto) Leslie # (Auto) Eos # (Auto) Baso # (Auto) Abs Immat Gran (auto) Absolute Neuts (auto) Absolute Nucleated RBC Nucleated RBC % (auto) PT INR APTT Sodium 141 Potassium 4.1 Chloride 109 H Carbon Dioxide 24 Anion Gap 12 BUN 8 L Creatinine 0.65 Estim Creat Clear Calc 105.7 Estimated GFR > 60 Random Glucose 96 Fasting Glucose Lactic Acid 0.8 Calcium 9.7 Total Bilirubin 5.6 H Direct Bilirubin 4.0 H AST 197 H ALT 352 H Alkaline Phosphatase 246 H D Troponin I High Sens < 3.5 Total Protein 7.3 Albumin 4.4 Lipase 22 TSH Urine Color Urine Appearance Urine pH Ur Specific [place] Urine Protein Urine Glucose (UA) Urine Ketones Urine Blood Urine Nitrite Ur Leukocyte Esterase Urine RBC Urine WBC Ur Squamous Epith Cells Urine Bacteria Urine Test COVID-19 (JULY) COVID-19 Clin Com 05/20/21 05/20/21 05/21/21 17:55 17:55 06:25 WBC RBC Hgb Hct MCV MCH MCHC RDW Plt Count MPV Immature Gran % (Auto) Neut % (Auto) Lymph % (Auto) Leslie % (Auto) Eos % (Auto) Baso % (Auto) Lymph # (Auto) Leslie # (Auto) Eos # (Auto) Baso # (Auto) Abs Immat Gran (auto) Absolute Neuts (auto) Absolute Nucleated RBC Nucleated RBC % (auto) PT INR APTT Sodium 139 Potassium 3.4 Chloride 110 H Carbon Dioxide 21 L Anion Gap 11 L BUN 6 L Creatinine 0.55 Estim Creat Clear Calc 125.0 Estimated GFR > 60 Random Glucose 82 Fasting Glucose Lactic Acid Calcium 8.5 D Total Bilirubin 5.2 H Direct Bilirubin 4.1 H AST 116 H ALT 267 H Alkaline Phosphatase 231 H Troponin I High Sens Total Protein 6.1 L Albumin 3.7 Lipase TSH 0.62 Urine Color DARK YELLOW Urine Appearance HAZY Urine pH 6.0 Ur Specific Dixon >= 1.030 H Urine Protein TRACE Urine Glucose (UA) NEG Urine Ketones 5 Urine Blood NEG Urine Nitrite POS H Ur Leukocyte Esterase TRACE H Urine RBC 0-2 Urine WBC 0 Ur Squamous Epith Cells 1+ Urine Bacteria 1+ Urine Test NEGATIVE COVID-19 (JULY) COVID-19 Clin Com 05/22/21 05/22/21 05:43 05:43 WBC 5.3 RBC 4.16 L Hgb 13.2 Hct 37.7 MCV 90.6 MCH 31.7 MCHC 35.0 RDW 11.6 Plt Count 278 MPV 10.1 Immature Gran % (Auto) 0.4 Neut % (Auto) 72.6 Lymph % (Auto) 16.1 L Leslie % (Auto) 8.2 Eos % (Auto) 2.3 Baso % (Auto) 0.4 Lymph # (Auto) 0.9 L Leslie # (Auto) 0.4 Eos # (Auto) 0.1 Baso # (Auto) 0.0 Abs Immat Gran (auto) 0.02 Absolute Neuts (auto) 3.8 Absolute Nucleated RBC 0.000 Nucleated RBC % (auto) 0.0 PT INR APTT Sodium 138 Potassium 3.4 Chloride 106 Carbon Dioxide 21 L Anion Gap 14 BUN 6 L Creatinine 0.60 Estim Creat Clear Calc 114.6 Estimated GFR > 60 Random Glucose Fasting Glucose 66 Lactic Acid Calcium 8.8 Total Bilirubin 5.3 H Direct Bilirubin 4.0 H AST 89 H ALT 225 H Alkaline Phosphatase 283 H D Troponin I High Sens Total Protein 6.3 L Albumin 3.6 Lipase TSH Urine Color Urine Appearance Urine pH Ur Specific Dixon Urine Protein Urine Glucose (UA) Urine Ketones Urine Blood Urine Nitrite Ur Leukocyte Esterase Urine RBC Urine WBC Ur Squamous Epith Cells Urine Bacteria Urine Test COVID-19 (JULY) COVID-19 Clin Com Assessment and Plan Assessment Anesthesia Assessment: Anesthesia Plan Discussed and Chart Reviewed Final Anesthetic Review Family History of Problems with Anesthesia: No History of Problems with Anesthesia: No NPO: Yes ASA Class: II Final Preanesthetic Review: No Changes in Pt Med Stat, Meds/Allgs Chart Reviewed and Consent Obtained/Reviewed Patient Risk: Intermediate Procedure Risk: Low Assessment/Block/Sedation in SS: Assess/Block/Sedation-SS Anesthetic Plan Anesthetic Plan: GA Disposition: Standard PACU
--- NOTE | 2021-05-22 13:51 | PM.CNCAR ---
History of Present Illness History of Present Illness Date of Service: 05/22/21 Requesting physician: Elliot Merrill Chief complaint: Postop pain, abnormal LFT's, bradycardia Narrative: 36-year-old female who underwent cholecystectomy recently and presented with abdominal pain and nausea. She has been noticed to have sinus bradycardia and during sleep her heart rates are in 30s. When she is awake the heart rate is running between 40s to 50s. She had nausea at the time of interview. She also has been experiencing abdominal pain. No dizziness or lightheadedness. No syncope. No chest discomfort shortness of breath. EKG and telemetry reviewed. She underwent echocardiography here yesterday which was essentially normal. We have been asked to assess her perioperative cardiovascular risk. [facility] Past Medical History Medical History No known health problems Functional capacity: independent ambulation Social History Social History Household Members: Children Housing: Apartment Do you presently have visiting nurse or other home services: No Alcohol intake: never Patient Tobacco Use Status: Never used Tobacco service: No Current occupational status: employed Meds Allergies Allergy/AdvReac Type Severity Reaction Status Date / Time No Known Allergies Allergy Verified 04/30/21 13:06 Active Medications: Current Medications Generic Name Dose Route Start Last Admin Trade Name Freq PRN Reason Stop Dose Admin Lactated Ringer's 1,000 mls @ 80 mls/hr 05/20/21 19:45 05/22/21 05:33 Lr IVCONT 80 mls/hr .[id number] EVELIN Administration Morphine Sulfate 3 mg 05/20/21 19:28 Morphine Sulfate 4 Mg/Ml Cartridge IVPUSH Q4H PRN Pain, Severe (Pain Scale 7-10) Ondansetron HCl 4 mg 05/20/21 19:28 05/22/21 11:56 Ondansetron Hcl 4 Mg/2 Ml Vial IVPUSH 4 mg Q8H PRN Administration Nausea and Vomiting Oxycodone HCl 5 mg 05/20/21 19:28 Oxycodone Hcl Immed Release 5 Mg Tablet PO Q6H PRN Pain, Severe (Pain Scale 7-10) Sodium Chloride 3 ml 05/21/21 00:00 05/22/21 08:44 0.9 % Sodium Chloride Flush 3 Ml Syringe IVFLUSH Not Given QSHIFT EVELIN Physical Exam Vital Signs: Vital Signs: Last Vital Signs Temp 98.0 F 05/22/21 13:19 Pulse 62 05/22/21 13:19 Resp 18 05/22/21 13:19 BP 119/62 05/22/21 13:19 Pulse Ox 97 05/22/21 13:19 Body Mass Index 32.3 GENERAL APPEARANCE: in no acute distress, pleasant. NECK: no carotid bruit, no jugular venous distention. SKIN: no suspicious lesions, warm and dry. HEART: no murmurs, regular rate and rhythm. LUNGS: clear to auscultation bilaterally. ABDOMEN: soft, nontender. EXTREMITIES: no edema. PERIPHERAL PULSES: equal. NEUROLOGIC: No gross deficits, AAO X 3 Results Labs and Meds Result diagrams: 05/22/21 05:43 05/22/21 05:43 Lab results: Laboratory Results - last 24 hr 05/22/21 05/22/21 05:43 05:43 WBC 5.3 RBC 4.16 L Hgb 13.2 Hct 37.7 MCV 90.6 MCH 31.7 MCHC 35.0 RDW 11.6 Plt Count 278 MPV 10.1 Immature Gran % (Auto) 0.4 Neut % (Auto) 72.6 Lymph % (Auto) 16.1 L [place] % (Auto) 8.2 Eos % (Auto) 2.3 Baso % (Auto) 0.4 Lymph # (Auto) 0.9 L [place] # (Auto) 0.4 Eos # (Auto) 0.1 Baso # (Auto) 0.0 Abs Immat Gran (auto) 0.02 Absolute Neuts (auto) 3.8 Absolute Nucleated RBC 0.000 Nucleated RBC % (auto) 0.0 Sodium 138 Potassium 3.4 Chloride 106 Carbon Dioxide 21 L Anion Gap 14 BUN 6 L Creatinine 0.60 Estim Creat Clear Calc 114.6 Estimated GFR > 60 Fasting Glucose 66 Calcium 8.8 Total Bilirubin 5.3 H Direct Bilirubin 4.0 H AST 89 H ALT 225 H Alkaline Phosphatase 283 H D Total Protein 6.3 L Albumin 3.6 Assessment and Plan (1) Bradycardia: Status: Acute (2) Preop cardiovascular exam: Status: Acute Pleasant 36-year-old female who is here for abdominal pain after recent gallbladder surgery. There is some fluid around the gallbladder foci and she is being considered to undergo ERCP. She was noticed to be bradycardic in doing sleep. This is generally due to high vagal tone his sleep. She also had some tachycardia when she walks. I think she should have fluid resuscitation as gently this happens in situations where patient is hypovolemic. I think right now she has no chest pains or shortness of breath. Her overall risk for perioperative cardiovascular complications is low. Due to young age and abdominal pain/nausea she may have a higher vagal tone than before and during his sees a a she may get bradycardic. I think that should be treated symptomatically with atropine if required. I think currently she does not have any significant conduction issues. Bradycardia and sleep is a common finding and is usually due to high vagal tone. Thank you for allowing me to participate in the care of your patient. Please feel free to contact me if you have any questions. Procedures Date of Service Date of Service: 05/22/21
--- NOTE | 2021-05-22 14:10 | MHC.SHP ---
Pre-Procedural Eval Section A Date of Service: 05/22/21 The patient is an INPATIENT: Yes The History & Physical has been completed within 30 days and I have reviewed it.: Yes Section B Chief Complaint: Postop pain, abnormal LFT's, bradycardia Allergies: Allergies Allergy/AdvReac Type Severity Reaction Status Date / Time No Known Allergies Allergy Verified 04/30/21 13:06 Plan Diagnosis/Plan: Unchanged I have reviewed the history and physical and performed a pertinent physical examination on my patient. No changes have occurred unless specified.
--- NOTE | 2021-05-22 15:46 | P.BOP_ITS ---
Brief Operative Note Date of Service: 05/22/21 Pre-op diagnosis: abn LFT Post-op diagnosis: same Procedure: see op note Surgeon: Rodrick Baker MD Anesthesia: GETA and MAC Was an Computer Applications Developer used for this Procedure?: No Estimated blood loss (mL): 0 Condition: stable Disposition: PACU
--- NOTE | 2021-05-22 15:46 | W.PM.OPN ---
Operative Note Operative Note Date of Service: 05/22/21 Narrative: Description: Endoscopic retrograde cholangiopancreatography (ERCP) with stent placement PROCEDURE: Endoscopic retrograde cholangiopancreatography INDICATION FOR THE PROCEDURE: Patient with a history of abn LFT concern for retained stone or bile leak MEDICATIONS: General anesthesia, rectal indomethacin 100 mg, The risks of the procedure were made aware to the patient and consisted of medication reaction, bleeding, perforation, aspiration, and post ERCP pancreatitis. DESCRIPTION OF PROCEDURE: After informed consent and appropriate sedation, the duodenoscope was inserted into the oropharynx, down the esophagus, and into the stomach. The scope was then advanced through the pylorus to the ampulla. The ampulla had a normal appearance. After carefully lining up the tome with the papilla the CBD was entered in the 3rd attempt.The PD was not cannulated. A cholangiogram was done with concern for a filling defect in distal CBD and a slow bile leak near the cystic stump close to the staple line. An 12 mm extraction balloon was dragged across the CBD a few times and no stone was retrieved, an occlusion cholangiogram did not reveal any filling defect. Next the extraction balloon was exchanged and a 10Fr x 7 cm plastic stent was then placed in good position with bile noted to be exiting from the papilla. There was some minor oozing which had ceased by the end of the procedure. The stomach was then decompressed and the endoscope was withdrawn. FINDINGS: 1. bile leak, slow RECOMMENDATIONS: 1. can allow clears and advance diet tomorrow 2. rept ERCP in 2-3 months for stent removal
--- NOTE | 2021-05-22 16:05 | PM.EVENT ---
Event Note Date of Service: 05/22/21 Event Note: Underwent ERCP without events this afternoon Small leak from the cystic duct stump seen No CBD stones Stent placed Patient doing well otherwise Fluid around gallbladder fossa small in volume - no drainage plan at this time Followed LFTs Possible home tomorrow findings on ERCP discussed with pt
[2021-05-22] MEDS: Indomethacin 50 MG SUPP.RECT 100 MG PR (19:39)
[2021-05-23 04:00] VITALS: BP 109/59; PULSE 50; RESP 20; TEMP 37.1; O2SAT 97
[2021-05-23 07:42] VITALS: BP 118/59; PULSE 66; RESP 18; TEMP 36.2; O2SAT 98
[2021-05-23 07:55] LABS: Alanine Aminotransferase 183 U/L (0-31); Albumin Level 3.6 g/dL (3.5-5.0); Alkaline Phosphatase 279 U/L (39-117); Aspartate Amino Transferase 55 U/L (5-31); Bilirubin Direct 1.3 mg/dL (0.0-0.5); Total Protein 6.3 g/dL (6.5-8.0)
--- NOTE | 2021-05-23 08:28 | P.PNGS_ITS ---
Subjective Subjective Date of Service: 05/23/21 <Chasity Mendez PA-C - Last Filed: 05/23/21 08:32> 05/23/21 <Manav Szymanski MD - Last Filed: 05/23/21 09:24> Interval history: Feels ok this morning. Has mild epigastric pain that comes and goes- same as prior to admission but improved. Hungry and wants to eat. <Chasity Mendez PA-C - Last Filed: 05/23/21 08:32> Physical Exam Vital Signs: Vital Signs: Last Vital Signs Temp 97.2 F 05/23/21 07:42 Pulse 66 05/23/21 07:42 Resp 18 05/23/21 07:42 BP 118/59 L 05/23/21 07:42 Pulse Ox 98 05/23/21 07:42 Body Mass Index 32.3 <EVERTON Osorio Last Filed: 05/23/21 08:32> Const: General: healthy appearing, comfortable, no acute distress and alert <Chasity Mendez PA-C - Last Filed: 05/23/21 08:32> Orientation/consciousness: patient oriented x3 <EVERTON Osorio Last Filed: 05/23/21 08:32> Eyes: Sclerae: sclerae normal <EVERTON Osorio Last Filed: 05/23/21 08:32> Resp: Effort & Inspection: normal respiratory effort <EVERTON Osorio Last Filed: 05/23/21 08:32> Cardio: Rate: regular rate <EVERTON Osorio Last Filed: 05/23/21 08:32> GI: Inspection: No distended and Yes incision (clean) <EVERTON Osorio Last Filed: 05/23/21 08:32> Palpation (GI): Soft to palpation, Tenderness to palpation present (GI) (very mild epigastric) Negative for with no rebound tenderness, no guarding and not rigid <EVERTON Osorio Last Filed: 05/23/21 08:32> Percussion: Yes normal to percussion <EVERTON Osorio Last Filed: 05/23/21 08:32> Skin: General skin exam: no rashes or lesions noted <Chasity Mendez PA-C - Last Filed: 05/23/21 08:32> Neuro: General: patient oriented x3 <EVERTON Osorio Last Filed: 05/23/21 08:32> Extrem: General: Yes no clubbing, cyanosis or edema <Chasity Mendez PA-C - Last Filed: 05/23/21 08:32> Procedures Date of Service Date of Service: 05/23/21 <EVERTON Osorio Last Filed: 05/23/21 08:32> Progress Note: A&P Assessment and plan (1) Abnormal LFTs (liver function tests): Status: Acute <EVERTON Osorio Last Filed: 05/23/21 08:32> (2) Postoperative bile leak: Status: Acute <EVERTON Osorio Last Filed: 05/23/21 08:32> Assessment and Plan: Feels well Minimal pain occasionally Tolerating diet ERCP done yesterday with stent - small bile leak noted Imaging studies shows minimal fluid in the gallbladder fossa - no drainage ne cessary at this time LFTs much improved Patient comfortable - okay to DC home today Will see in the office for follow-up visit Patient seen and examined - agree with AMINAH Mendez <Manav Szymanski MD - Last Filed: 05/23/21 09:24> Assessment and Plan: 36 year old female admitted around one week post op lap [facility] for abnormal LFTs. She underwent ERCP yesterday and was found to have a slow bile leak and therefore had stent placement. Her LFTs has now significantly improved. Will advance to regular diet. If tolerating, stable for d/c to home today. F/u with Dr. Szymanski in office for post op check. F/u with Dr. Baker in office for eventual stent removall. Patient comfortable with plan. <EVERTON Osorio Last Filed: 05/23/21 08:32> Fall Risk Details Current Medications: Current Medications Generic Name Dose Route Start Last Admin Trade Name Freq PRN Reason Stop Dose Admin Lactated Ringer's 1,000 mls @ 80 mls/hr 05/20/21 19:45 05/22/21 23:51 Lr IVCONT 80 mls/hr .[id number] EVELIN Administration Morphine Sulfate 3 mg 05/20/21 19:28 Morphine Sulfate 4 Mg/Ml Cartridge IVPUSH Q4H PRN Pain, Severe (Pain Scale 7-10) Ondansetron HCl 4 mg 05/20/21 19:28 05/22/21 11:56 Ondansetron Hcl 4 Mg/2 Ml Vial IVPUSH 4 mg Q8H PRN Administration Nausea and Vomiting Oxycodone HCl 5 mg 05/20/21 19:28 Oxycodone Hcl Immed Release 5 Mg Tablet PO Q6H PRN Pain, Severe (Pain Scale 7-10) Sodium Chloride 3 ml 05/21/21 00:00 05/23/21 08:21 0.9 % Sodium Chloride Flush 3 Ml Syringe IVFLUSH Not Given QSHIFT EVELIN <Chasity Mendez PA-C - Last Filed: 05/23/21 08:32> Time Spent With Patient Time: Total time spent is greater than 50% in coordination of care (as documented) at patient's floor/unit and/or counseling patient: <Chasity Mendez PA-C - Last Filed: 05/23/21 08:32> Time with patient: 15 - 24 minutes <Chasity Mendez PA-C - Last Filed: 05/23/21 08:32> Quality Stroke Does the patient have a stroke diagnosis?: No <Chasity Mendez PA-C - Last Filed: 05/23/21 08:32> VTE Prior VTE?: No <Chasity Mendez PA-C - Last Filed: 05/23/21 08:32> VTE Risk Level:: Medical - low <Chasity Mendez PA-C - Last Filed: 05/23/21 08:32> VTE Device Contraindication: N/A - Device Ordered <EVERTON Osorio Last Filed: 05/23/21 08:32> VTE Drug Contraindication: Treatment Not Indicated <Chasity Mendez PA-C - Last Filed: 05/23/21 08:32>
--- NOTE | 2021-05-23 09:16 | P.DS_ITS ---
DS: Providers Provider Date of Service: 05/23/21 Date of admission: 05/20/21 19:28 Primary care physician: Nata Campos MD Consults: 05/20/21 19:32 Consult to Hospitalist Routine Consulting Provider: Hospitalist Reason For Exam: bradycardia 05/21/21 07:00 Consult to Gastroenterology Routine Consulting Provider: Ozzie Grajeda Reason for consultation: jaundice 05/21/21 12:38 Consult to Cardiology Routine Consulting Provider: Jimbo Belle Reason for consultation: sinus bardy, tachy to 140s with min exertion DS: Diagnosis Discharge Diagnosis (1) Abnormal LFTs (liver function tests): Status: Acute (2) Postoperative bile leak: Status: Acute DS: Medications Discharge Medications Home Medications: Previous Rx's Medication Instructions Recorded ibuprofen 600 mg tablet 600 mg PO Q6H PRN #30 tab 05/16/21 oxycodone-acetaminophen 5 mg-325 1 - 2 tab PO Q4-6H PRN #30 tab 05/16/21 mg tablet (Percocet) DS: Summary Hospital Course Hospital Course: BRIEF HPI: Sana Maldonado is a 36 year old female? who had undergone uneventful laparoscopic cholecystectomy 05/16/2021 as an outpatient.? She says says she had been doing well at home but started to have some pain the epigastric area radiating all the way to the mid back.? The following morning she woke up with some yellowing of her eyes.? She had pain again all morning which she did?not seem to respond to her p.o. pain meds. She describes her pain as similar to the pain that she had when she was admitted last 04/19/2021.?She also had elevated bilirubin during that admission.? Her clinical course then seemed to be consistent with passage of gallstones to the common bile duct even as her MRI?did not reveal any CBD stones.? In view of that episode however, she wanted to proceed with cholecystectomy which was performed last week which she tolerated well. Work up in the ED included LFTs which showed a bilirubin of 5.6. Her CT scan did not show any CBD dilatation and there was minimal fluid in the gallbladder fossa consistent with her postop status. HOSPITAL COURSE: She was admitted to the surgical service for further work up of her abnormal liver function studies. It was thought to be secondary to passage of stone through the CBD versus post op bile leak. Her LFTs remained elevated. GI consult was obtained with Dr. Baker for ERCP which she underwent on 05/22/21 with stent placement and was found to have a slow bile leak. She tolerated the procedure well and her diet was advanced. Her LFTs improved significantly following the ERCP. She felt well. She was discharged to home on 05/23/21. She is to follow up with Dr. Szymanski and Dr. Baker in the office with plan for stent removal in 2-3 months. Of note, she was noted to be bradycardic during sleep with tachycardia with minimal exertion, asymptomatic. She was seen by cardiology who felt the b radycardia was due to increased vagal tone and the tachycardia due to hypovolemia and to treat symptomtically. She remained asymptomatic. The tachycardia resolved with IVF resuscitation. Status at Discharge Functional status at discharge: independent ambulation Overall status at discharge: patient is progressing back to baseline Time Spent with Patient Time attestation: Total time spent providing and/or coordinating discharge services: Discharge coordination time: Greater than 30 minutes Quality: Stroke Does the patient have a stroke diagnosis?: No Physical Exam Vital Signs: Vital Signs: Last Vital Signs Temp 97.2 F 05/23/21 07:42 Pulse 66 05/23/21 07:42 Resp 18 05/23/21 07:42 BP 118/59 L 05/23/21 07:42 Pulse Ox 98 05/23/21 07:42 Body Mass Index 32.3 Const: General: comfortable, no acute distress and alert Orientation/consciousness: patient oriented x3 Resp: Effort & Inspection: normal respiratory effort GI: Inspection: Yes incision (clean) Palpation (GI): Soft to palpation, Tenderness to palpation present (GI) (mild epigastric), no guarding and not rigid Skin: General skin exam: no rashes or lesions noted Neuro: General: patient oriented x3 Extrem: General: Yes no clubbing, cyanosis or edema DS: Data Data Completed and Pending Labs on day of discharge: Laboratory Results - last 24 hr 05/23/21 05:24 Total Bilirubin 2.0 H Direct Bilirubin 1.3 H AST 55 H ALT 183 H Alkaline Phosphatase 279 H Total Protein 6.3 L Albumin 3.6 Preliminary micro results at discharge 05/20/21 17:46 Blood Culture - Preliminary Blood - Venous No growth after 48 hours. 05/20/21 17:46 Blood Culture - Preliminary Blood - Venous No growth after 48 hours. Discharge Plan Discharge Patient Disposition: Home, Self-Care Discharge Diagnosis: elevated LFTs Referrals: Rodrick Baker MD [Physician] - 1 Month Manav Szymanski MD [Physician] - 1 Week Nata Burton MD [Primary Care Provider] - 1 Week (Your doctor's office should call you to schedule a follow up appointment.) Discharge Medications: Continued oxycodone-acetaminophen [Percocet] 5-325 mg tablet 1 - 2 tab PO Q4-6H PRN (Reason: pain) Qty: 30 RF: 0 ibuprofen 600 mg tablet 600 mg PO Q6H PRN (Reason: pain) Qty: 30 RF: 0 Discharge Orders: Discharge Order (Routine); Ordered 05/23/21 Ordered By: Manav Szymanski Diet: low fat, low cholesterol Activity on Discharge: No heavy lifting Stand Alone Forms: Patient Portal Discharge page Care Plan Goals: Return to baseline health and activity. Health Concerns: Bile leak following lap CCY Plan of Treatment: Discharge to home, stent removal in 2-3 months Assessment: 36 year old female admitted around one week post op lap CCY for abnormal LFTs. S/p ERCP with stent placement for slow bile leak. Her LFTs have significantly improved and she is clinically appearing well. She is stable for discharge to home.
--- NOTE | 2021-05-23 10:09 | HO.POSTANES ---
Post Anesthesia Evaluation Post Anesthesia Evaluation Vital Signs: Vital Signs Temp Pulse Resp BP Pulse Ox 05/23/21 07:42 97.2 F 66 18 118/59 L 98 05/23/21 04:00 98.7 F 50 20 109/59 L 97 05/22/21 23:45 97.9 F 62 18 111/63 96 Anesthesia: General Endotracheal-GETA Mental Status: Awake Pain Control: Satisfactory Nausea/Vomiting: None Hydration: Adequate Anesthesia-Related Issues: No Anes. Related Issues
[2021-05-23 11:24] VITALS: BP 136/68; PULSE 57; RESP 20; TEMP 37.1; O2SAT 99
--- NOTE | 2021-05-23 14:28 | MHC.CM.PN ---
PT CLEARED TO DC HOME TODAY WITH NO SERVICES
== END 2021-05-23 14:00 | disposition home or self-care (01) | DRG 252 ==
LOC: HO.ED 19:33 → HO.IMC 20:23
PROVIDERS: Internal Medicine Gastroenterology; Physician Assistant Surgical; Admitting Provider Surgery; Emergency Provider Emergency Medicine Emergency Medical Services; PCP Internal Medicine; Visit Provider Surgery
PROC: 0F798DZ Dilation of Common Bile Duct with Intraluminal Device, Via Natural or Artificial Opening Endoscopic (ICD-10-PCS; CPT 43260; principal; 2021-05-22 15:50)
DX: K91.89 Other postprocedural complications and disorders of digestive system (principal); R00.1 Bradycardia, unspecified; R79.89 Other specified abnormal findings of blood chemistry; Z20.822 Contact with and (suspected) exposure to COVID-19; Z79.899 Other long term (current) drug therapy
CPT/HCPCS: 36415; 74177; 74181; 80048; 80053; 80076; 81001; 81025; 82248; 83605; 83690; 84443; 84484; 85025; 85610; 85730; 87040; 87086; 87635; 93005; 93306; 99285; C1769; J1100; J2250; J2370; J2405; J3010; Q9967

== ENCOUNTER 2021-05-24 23:20 | Emergency (ER) | payer OTHER, SELFPAY ==
[2021-05-24 23:37] VITALS: BP 115/63; PULSE 100; RESP 16; TEMP 36.2; O2SAT 98; BMI 32.3
[2021-05-25] MEDS: diphenhydrAMINE HCL 25 MG TABLET 50 MG PO (00:32)
[2021-05-25] MEDS: dexAMETHasone 2 MG TABLET 10 MG PO (00:33)
--- NOTE | 2021-05-25 01:28 | ED.ALLEREA ---
HPI - Allergic Reaction General Chief complaint: Allergic Reaction Stated complaint: ?Allergic reaction Time Seen by Provider: 05/25/21 00:21 Source: patient Mode of arrival: ambulatory Limitations: no limitations History of Present Illness HPI narrative: Patient complaining of itching and rash all over the body since yesterday after she had minor outpatient surgery etiology not clear patient was given oxycodone and morphine which she has taken before no shortness of breath no tongue or lip swelling patient took only one 25 mg Benadryl today Related Data Previous Rx's Medication Instructions Recorded ibuprofen 600 mg tablet 600 mg PO Q6H PRN #30 tab 05/16/21 oxycodone-acetaminophen 5 mg-325 1 - 2 tab PO Q4-6H PRN #30 tab 05/16/21 mg tablet (Percocet) diphenhydramine HCl 25 mg capsule 50 mg PO Q6H PRN #30 cap 05/25/21 (Benadryl) prednisone 20 mg tablet 40 mg PO DAILY #10 tab 05/25/21 Allergies Allergy/AdvReac Type Severity Reaction Status Date / Time No Known Allergies Allergy Verified 04/30/21 13:06 Review of Systems Review of Systems: Yes all other systems are reviewed and are negative [facility] Past Medical History Medical History No known health problems Social History Social History Household Members: Children Housing: Apartment Do you presently have visiting nurse or other home services: No Alcohol intake: never Patient Tobacco Use Status: Never used Tobacco Advance Directives: No Advance Directives Information Provided: Yes Patient : No service: No Current occupational status: employed Physical Exam Vital Signs: Vital Signs: Last Vital Signs Temp 97.2 F 05/24/21 23:37 Pulse 100 05/24/21 23:37 Resp 16 05/24/21 23:37 BP 115/63 05/24/21 23:37 Pulse Ox 98 05/24/21 23:37 Body Mass Index 32.3 Appearance: Alert. Oriented X3. No acute distress. ENT: Pharynx normal. Oral Mucosa moist lips and tongue normal Neck: Normal inspection. Neck supple. CVS: Normal heart rate and rhythm. Pulses normal. Respiratory: No respiratory distress. Equal air entry bilateral, no wheezing/rales/rhonchi Abdomen: Soft and nontender. Skin: Skin warm and dry. Diffuse urticarial rash on extremities and trunk Extremities: No lower extremity edema. No calf tenderness Neuro: Oriented X 3. MDM - Allergic Reaction MDM Narrative Medical decision making narrative: Patient with allergic reaction to unknown agent like to medications received during the surgery. [place] better after Decadron and p.o. Benadryl will discharge patient home on prednisone and Benadryl Differential Diagnosis Differential diagnosis: Likely allergic reaction Discharge Plan Discharge Clinical Impression: Allergic reaction Qualifiers: Encounter type: initial encounter Qualified Code(s): T78.40XA - Allergy, unspecified, initial encounter Patient Disposition: Home, Self-Care Instructions: Urticaria (ED) Additional Instructions: Etiology of allergic reaction is not clear Continue Benadryl 50 mg every 6 hours as needed Prednisone if rash continues Prescriptions: New diphenhydramine HCl [Benadryl] 25 mg capsule 50 mg PO Q6H PRN (Reason: allergic reaction) Qty: 30 RF: 0 prednisone 20 mg tablet 40 mg PO DAILY Qty: 10 RF: 0 No Action oxycodone-acetaminophen [Percocet] 5-325 mg tablet 1 - 2 tab PO Q4-6H PRN (Reason: pain) Qty: 30 RF: 0 ibuprofen 600 mg tablet 600 mg PO Q6H PRN (Reason: pain) Qty: 30 RF: 0
[2021-05-25 01:48] VITALS: BP 110/64; PULSE 60; RESP 16; O2SAT 99
== END 2021-05-25 01:53 | disposition home or self-care (01) ==
PROVIDERS: Emergency Provider Internal Medicine; PCP Internal Medicine
DX: L50.9 Urticaria, unspecified (principal); T50.915A Adverse effect of multiple unspecified drugs, medicaments and biological substances, initial encounter; Y92.9 Unspecified place or not applicable
CPT/HCPCS: 99283; 99284; J8540; Q0163

== ENCOUNTER → 2021-06-19 09:51 | Outpatient (BNVA) | payer OTHER, SELFPAY | PROVIDERS: PCP Internal Medicine; Visit Provider Surgery | DX: Z48.815 Encounter for surgical aftercare following surgery on the digestive system (principal); R94.5 Abnormal results of liver function studies; Z87.19 Personal history of other diseases of the digestive system | CPT/HCPCS: 99212 ==

== ENCOUNTER → 2021-07-15 09:42 | Outpatient (BNVA) | payer OTHER, SELFPAY | PROVIDERS: PCP Internal Medicine; Visit Provider Internal Medicine Gastroenterology ==

== ENCOUNTER 2021-09-01 09:27 | Day surgery (SDC) | payer OTHER, SELFPAY ==
[2021-08-25 12:57] VITALS: BMI 31.5
[2021-09-01] VITALS (9 sets, daily range): BP systolic 107–129; BP diastolic 41–86; PULSE 39–91; RESP 16–18; TEMP 36.3–36.4; O2SAT 98–100
--- NOTE | ~2021-09-01 | FL_ITS ---
EXAMINATION: XR FLUOROSCOPY WITH IMAGES CLINICAL INFORMATION: Stent removal, ERCP COMPARISON: Fluoroscopic spot views 05/22/2021. TECHNIQUE: Fluoroscopy performed by Dr. Baker. Fluoroscopy time: 0.8 minutes DAP: 2.46 Gycm2 Images: 7 FINDINGS: The biliary stent has been removed. The visualized ducts appear within normal caliber. There is no focal stricture or intraluminal filling defect. FL/FL guidance in OR IMPRESSION: Fluoroscopy for ERCP.
--- NOTE | 2021-09-01 10:18 | P.CONAN_ITS ---
[facility] Active Problems Active Problems: All Active Problems (Updated 08/25/21 @ 13:00 by Bere johnson RN) Gallbladder stone without cholecystitis or obstruction (Acute) Abnormal LFTs (liver function tests) (Acute) Bradycardia (Acute) Postoperative bile leak (Acute) Abdominal pain (Acute) Class 1 obesity with body mass index (BMI) of 31.0 to 31.9 in adult (Acute) Allergic reaction (Acute) Past Medical History Medical History Abdominal pain Allergic reaction Bradycardia Class 1 obesity with body mass index (BMI) of 31.0 to 31.9 in adult COVID-19 vaccine series completed Family History Family History Mother No problems noted. Father No problems noted. Family history of problems with anesthesia: No Surgical History Surgical History History of cholecystectomy History of ERCP History of Problems with Anesthesia: No Social History Social History Household Members: Children Housing: Apartment Are you a primary aged or disabled carer to a significant other at home: No Do you presently have visiting nurse or other home services: No Alcohol intake: never Patient Tobacco Use Status: Never used Tobacco e-Cigarette/Vaping Use: Never Used Second Hand Smoke Exposure: No Use of substances other than those prescribed or required for medical reasons: No Have you been hit, kicked, punched, or otherwise hurt by someone within the past year? If so, by whom?: No Are you DNR?: No Advance Directives: No Advance Directives Information Provided: No Advance Directives on File: No Recently lost weight without trying: No Eating poorly because of decreased appetite: No Nutrition Risks: No Nutritional Risk Patient : No FDLMP: 08/02/21 service: No Current occupational status: employed Current occupational exposures/hazards: No Meds Allergies Allergy/AdvReac Type Severity Reaction Status Date / Time No Known Allergies Allergy Verified 09/01/21 10:15 Active Medications: Current Medications Lactated Ringer's (Lr) 1,000 mls @ 50 mls/hr IVCONT .Q20H [facility] Home Medications Medication Instructions Recorded Confirmed Last Taken Type No Known Home Meds 08/25/21 08/25/21 Unknown History Exam Exam Date and Time: September 01, 2021 1018 Height,Weight and Vital Signs: Height 4 ft 11 in Weight 70.76 kg Airway Mallampati Class: II TM Dist: >3cm Neck ROM: Full Heart: rrr Lungs: cta Assessment and Plan Assessment Anesthesia Assessment: Anesthesia Plan Discussed and Chart Reviewed Final Anesthetic Review Family History of Problems with Anesthesia: No History of Problems with Anesthesia: No NPO: Yes ASA Class: II Final Preanesthetic Review: No Changes in Pt Med Stat, Meds/Allgs Chart Reviewed and Consent Obtained/Reviewed Patient Risk: Intermediate Procedure Risk: Intermediate Anesthetic Plan Anesthetic Plan: GA Disposition: Standard PACU
--- NOTE | 2021-09-01 10:33 | MHC.SHP ---
Pre-Procedural Eval Section A Date of Service: 09/01/21 Section B Chief Complaint: Abnormal LFT's Details of Present Illness: had stent placed for bile elak, time to remove and reassess Relevant Family History (Specify if Yes): No Relevant Social History: None Present Medications: see Short Stay Collaborative assessment Medical History: Significant History (Bradycardia Class 1 obesity ) History of Previous Operations: Relevant previous surgery/procedure and date(s) (cholecystectomy, ERCP) Allergies: Allergies Allergy/AdvReac Type Severity Reaction Status Date / Time No Known Allergies Allergy Verified 09/01/21 10:15 Review of Systems Sugical H&P ROS: Negative: Constitution, Cardiovascular, Respiratory, Neurological, Psychiatric, Hem-Onc, Allergic/Immunologic, Gastrointestinal, Genitourinary, Musculoskeletal, Integumentary, Endocrine and Eyes/Ears/Nose/Throat Exam Surgical H&P Exam: Normal: HEENT, Normal: Heart, Normal: Lungs, Normal: Extremities, Normal: Abdomen, Normal: Skin and Normal: Neurological Plan Diagnosis/Plan: Unchanged I have reviewed the history and physical and performed a pertinent physical examination on my patient. No changes have occurred unless specified.
[2021-09-01 10:35] LABS: UPreg QC Valid YES; Urine Pregnancy NEGATIVE (NEGATIVE)
[2021-09-01] MEDS: Lactated Ringers 1,000 ML 50 ML IVCONT (10:43)
--- NOTE | 2021-09-01 11:46 | PM.OP ---
Brief Operative Note Date of Service: 09/01/21 Pre-op diagnosis: ERCP s/p stent palcement for bile leak, to remove Post-op diagnosis: same Procedure: see op note Surgeon: Rodrick Baker MD Anesthesia: GETA and MAC Was an Spot Welder Body Assembly used for this Procedure?: No Estimated blood loss (mL): 0 Condition: stable Disposition: PACU
--- NOTE | 2021-09-01 11:47 | P.OP_ITS ---
Operative Note Operative Note Date of Service: 09/01/21 Narrative: Description: Endoscopic retrograde cholangiopancreatography (ERCP) PROCEDURE: Endoscopic retrograde cholangiopancreatography with stent removal and cholangiogram INDICATION FOR THE PROCEDURE: Patient with a history of bile leak and stent placement MEDICATIONS: General anesthesia, rectal indomethacin 100 mg, The risks of the procedure were made aware to the patient and consisted of medication reaction, bleeding, perforation, aspiration, and post ERCP pancreatitis. DESCRIPTION OF PROCEDURE: After informed consent and appropriate sedation, the duodenoscope was inserted into the oropharynx, down the esophagus, and into the stomach. The scope was then advanced through the pylorus to the ampulla. The stent was noted protruding thru the ampulla. Using a regular small snare the stent was grasped and pulled out thru the scope with good flow of normal appearing bile. A 12 mm balloon was then used to enter the bile duct and a cholangiogram was obtained. The cystic duct remnant and the bile ducts appeared normal with no apparent defects. Upon cessation of the procedure good drainage of contrast was also noted from the duct. There was some minor oozing which had ceased by the end of the procedure. The st omach was then decompressed and the endoscope was withdrawn. FINDINGS: 1. Stent removal and normal cholangiogram RECOMMENDATIONS: 1. clears for next 4 hours then can advance if feels better
[2021-09-01] MEDS: Mag&Al/Sim/Diphenhyd/Lidocaine 10 ML ORAL.SUSP PO (12:21)
[2021-09-01] MEDS: Acetaminophen 325 MG TABLET 975 MG PO (12:22)
--- NOTE | 2021-09-01 12:30 | HO.ANESPROP2 ---
[facility] Active Problems Active Problems: All Active Problems (Updated 08/25/21 @ 13:00 by Bere Hernandez RN) Gallbladder stone without cholecystitis or obstruction (Acute) Abnormal LFTs (liver function tests) (Acute) Bradycardia (Acute) Postoperative bile leak (Acute) Abdominal pain (Acute) Class 1 obesity with body mass index (BMI) of 31.0 to 31.9 in adult (Acute) Allergic reaction (Acute) Past Medical History Medical History Abdominal pain Allergic reaction Bradycardia Class 1 obesity with body mass index (BMI) of 31.0 to 31.9 in adult COVID-19 vaccine series completed Family History Family History Mother No problems noted. Father No problems noted. Family history of problems with anesthesia: No Surgical History Surgical History History of cholecystectomy History of ERCP History of Problems with Anesthesia: No Social History Social History Household Members: Children Housing: Apartment Are you a primary child day care center worker to a significant other at home: No Do you presently have visiting nurse or other home services: No Alcohol intake: never Patient Tobacco Use Status: Never used Tobacco e-Cigarette/Vaping Use: Never Used Second Hand Smoke Exposure: No Use of substances other than those prescribed or required for medical reasons: No Have you been hit, kicked, punched, or otherwise hurt by someone within the past year? If so, by whom?: No Are you DNR?: No Advance Directives: No Advance Directives Information Provided: No Advance Directives on File: No Recently lost weight without trying: No Eating poorly because of decreased appetite: No Nutrition Risks: No Nutritional Risk Patient : No FDLMP: 08/02/21 service: No Current occupational status: employed Current occupational exposures/hazards: No Meds Allergies Allergy/AdvReac Type Severity Reaction Status Date / Time No Known Allergies Allergy Verified 09/01/21 10:15 Active Medications: Current Medications Fentanyl (Fentanyl Citrate/Pf 100 Mcg/2 Ml Vial) 50 mcg IVPUSH Q5M PRN; Protocol PRN Reason: Pain, Severe (Pain Scale 7-10) Lactated Ringer's (Lr) 1,000 mls @ 50 mls/hr IVCONT .Q20H EVELIN Last Admin: 09/01/21 10:43 Dose: 50 mls/hr Documented by: Promethazine HCl 12.5 mg/ (Sodium Chloride) 50.5 mls @ 202 mls/hr IV ONCE PRN PRN Reason: Nausea and Vomiting Home Medications Medication Instructions Recorded Confirmed Last Taken Type No Known Home Meds 08/25/21 08/25/21 Unknown History Exam Exam Date and Time: September 01, 2021 1230 Height,Weight and Vital Signs: Height 4 ft 11 in Weight 70.76 kg Last Vital Signs Temp 97.5 F 09/01/21 11:56 Pulse 67 09/01/21 12:16 Resp 16 09/01/21 12:16 BP 119/68 09/01/21 12:16 Pulse Ox 99 09/01/21 12:16 Pertinent Lab Results Pertinent Lab Results: Laboratory Tests 09/01/21 10:18 Urine Test NEGATIVE Airway Mallampati Class: II TM Dist: >3cm Neck ROM: Full Heart: rrr Lungs: cta Assessment and Plan Assessment Anesthesia Assessment: Anesthesia Plan Discussed and Chart Reviewed Final Anesthetic Review Family History of Problems with Anesthesia: No History of Problems with Anesthesia: No NPO: Yes ASA Class: IV Final Preanesthetic Review: No Changes in Pt Med Stat, Meds/Allgs Chart Reviewed and Consent Obtained/Reviewed Patient Risk: Intermediate Procedure Risk: Intermediate Anesthetic Plan Anesthetic Plan: GA Disposition: Standard PACU
== END 2021-09-01 13:30 | disposition home or self-care (01) ==
PROVIDERS: Anesthesiology; PCP Internal Medicine; Visit Provider Internal Medicine Gastroenterology
PROC: (CPT 43260; principal; 2021-09-01 11:00)
DX: R94.5 Abnormal results of liver function studies (principal); Z96.89 Presence of other specified functional implants; R10.11 Right upper quadrant pain; Z87.19 Personal history of other diseases of the digestive system; Z90.49 Acquired absence of other specified parts of digestive tract
CPT/HCPCS: 43275; 81025; J0330; J1100; J1610; J2250; J2405; J3010; Q9967

== ENCOUNTER 2021-10-20 13:31 | Outpatient (REF) | payer OTHER, SELFPAY | END 2021-10-20 13:32 | disposition home or self-care (01) | LOC: HO.LAB 13:31 | PROVIDERS: Visit Provider Internal Medicine | DX: Z13.89 Encounter for screening for other disorder (principal) | CPT/HCPCS: 36415; 87635; C9803 ==

== ENCOUNTER 2021-10-21 07:39 | Outpatient (REF) | payer OTHER, SELFPAY | END 2021-10-21 07:40 | disposition home or self-care (01) | LOC: HO.LAB 07:39 | PROVIDERS: Visit Provider Internal Medicine | DX: Z13.89 Encounter for screening for other disorder (principal) | CPT/HCPCS: 36415; C9803 ==

== ENCOUNTER 2023-11-10 16:15 | Outpatient (AMB) | payer OTHER, SELFPAY ==
--- NOTE | 2023-11-10 16:16 | MHC.PC.OV ---
Vital Signs 11/10/23 16:18 Height 4 ft 11 in Weight 164 lb BMI 33.1 BP 120/72 Blood Pressure Location Rt brachial Position Sitting Intake Visit Reasons: Urinary tract infection Intake Note: Patient here c/o low back pain, ? 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 Required: No Accompanied by: Self / Same As Patient Allergies No Known Allergies Allergy (Verified 11/10/23 16:36) Medication List - Last Reconciled 11/10/23 by Nata Campos MD fluticasone propionate 50 mcg/actuation (Allergy Relief (fluticasone)) 1 spray intranasal DAILY 30 days loratadine 10 mg PO DAILY PRN 90 days Tobacco use date assessed: 11/10/23 Dental Screening Dental Screen Date: 11/10/23 Did you have a dental visit in the last 12 months?: Yes Did you have a dental problem in the last 6 months where you did not have access to dental care?: No Was dental information given to patient?: Patient has dentist HPI HPI Comments History of Present Illness Details This is a 38-year-old female that complains of lumbar pain that started about a week ago and is still present. No radiating to the legs. No fever, bowel or bladder incontinence. No previous trauma. She also noticed today a fetid odor in urine and dysuria. Urinalysis was ordered because she can not urinate in the office. I will start her on ibuprofen for few days for her pain. [facility] Medical History COVID-19 vaccine series completed Bradycardia Abdominal pain Class 1 obesity with body mass index (BMI) of 31.0 to 31.9 in adult Allergic reaction Surgical History History of ERCP History of cholecystectomy Family History Mother No problems noted. Father No problems noted. Social History Household Members: Children Housing: Apartment Are you a primary career development facilitator to a significant other at home: No Do you presently have visiting nurse or other home services: No Alcohol intake: never Patient Tobacco Use Status: Never used Tobacco e-Cigarette/Vaping Use: Never Used Second Hand Smoke Exposure: No service: No Current occupational status: employed Current occupational exposures/hazards: No Cognitive needs: No Hearing needs: No Vision needs: No Questionnaire PHQ-9 Over the last 2 weeks, how often have you been bothered by any of the following problems? 1. Little interest or pleasure in doing things: not at all 2. Feeling down, depressed, or hopeless: not at all 3. Trouble falling or staying asleep, or sleeping too much: not at all 4. Feeling tired or having little energy: not at all 5. Poor appetite or overeating: not at all 6. Feeling bad about yourself - or that you are a failure or have let yourself or your family down: not at all 7. Trouble concentrating on things, such as reading the newspaper or watching television: not at all 8. Moving or speaking so slowly that other people could have noticed. Or the opposite - being so fidgety or restless that you have been moving around a lot more than usual: not at all 9. Thoughts that you would be better off or of hurting yourself in some way: not at all Total score: 0 Depression Screening Interpretation: Negative Depression Screening Done: Yes 04903 - PHQ-9 Billing: Yes Source: Developed by Drs. Ozzie Mireles, Bridgette Schrader, Christian Stafford and colleagues, with an educational talisha from [employer]. Thrive Questionnaire Date Thrive assessed: 11/10/23 I am a: Patient What is your living situation today?: I have a steady place to live Within the past 12 months, did the food you bought not last and you didn't have the money to get more?: Never true Within the past 12 months, did you worry whether your food would run out before you got money to buy more?: Never true Do you have trouble paying for medicines?: No Do you have trouble getting transportation to medical appointments?: No Do you have trouble paying your heating and electricity bill?: No Do you have trouble taking care of your child, family member or friend?: No Do you have trouble with day-to-day activities such as bathing, preparing meals, shopping, managing finances, etc.?: No Are you currently unemployed and looking for a job?: No Are you interested in more education?: No Please select the resources that you would like help with: None Currently or been in a relationship where the following occur: no concerns reported THRIVE Score: 0 AUDIT C Alcohol Use Questionnaire (AUDIT-C) 1. How often do you have a drink containing alcohol?: Never Total Score: 0 MARLENE-7 AMB Questionnaire MARLENE-7 Date MARLENE - 7 assessed: 11/10/23 Feeling nervous, anxious, or on edge: 0 = Not at all Not being able to stop or control worryin = Not at all Worrying too much about different things: 0 = Not at all Trouble relaxin = Not at all Being so restless that it is hard to sit still: 0 = Not at all Becoming easily annoyed or irritable: 0 = Not at all Feeling afraid as if something awful might happen: 0 = Not at all Total MARLENE-7 score (0-4 normal; 5-9 mild; 10-14 moderate; 15-21 severe): 0 Source: Developed by Drs. Ozzie Mireles, Bridgette Schrader, Christian Stafford and colleagues, with an educational talisha from [employer]. MARLENE-7 Assessment Billing MARLENE-7 Assessment Tool: MARLENE-7 Assessment 18246 Review of Systems Const All systems reviewed & are unremarkable except as noted in HPI and below Eyes Reports no additional complaints, Denies change in vision and Denies other visual disturbances Card Denies chest pain at rest, Denies chest pain with activity, Denies edema, Denies irregular heart rhythm, Denies claudication, Denies dyspnea, Denies dyspnea on exertion, Denies orthopnea, Denies paroxysmal nocturnal dyspnea and Denies slow heart rate Resp Denies cough, Denies dyspnea and Denies dyspnea on exertion GI Denies abdominal pain, Denies change in bowel habits, Denies excessive flatus, Denies nausea and Denies vomiting Denies urinary incontinence, Denies urinary hesitancy and Denies urinary urgency Musc Denies abnormal gait, Denies atrophy, Denies deformity and Denies limited range of motion Skin/Breast Denies bleeding lesions, Denies changing lesions and Denies rash Neuro Denies abnormal gait, Denies behavioral changes and Denies lack of coordination Psych Denies behavioral changes Physical exam (Primary Care) BMI result Body Mass Index 33.1 Tobacco/Smoking Status: Tobacco use Status Tobacco use date assessed 11/10/23 11/10/23 16:27 Patient Tobacco Use Status Never used Tobacco 11/10/23 16:27 e-Cigarette/Vaping Use Never Used 11/10/23 16:27 PHQ-9: PHQ-9 Score PHQ-9: Total score 0 11/10/23 16:47 Depression Screening Interpretation: Negative Thrive Assessment: Date of Thrive Assessment Date Thrive assessed 11/10/23 11/10/23 16:27 Currently or been in a relationship where the following occur: no concerns reported Eyes General: appearance normal, both eyes and all related structures Eyelids: Yes eyelids normal Conjunctivae: conjunctivae normal Neck Neck: Yes normal visual inspection and Yes supple Resp Effort & Inspection: normal respiratory effort Auscultation: clear to auscultation bilaterally Cardio Jugular venous distension: no JVD Rate: regular rate Rhythm: regular rhythm Heart sounds: S1 normal heart sound present and S2 normal heart sound present Extrem General: Yes full ROM Assessment and Plan Assessment & Plan (1) Lumbar pain: Code(s): M54.50 - Low back pain, unspecified Plan: Start ibuprofen. Orders: Orders UA CC w/rflx Micro + Cult Today R30.0 - Dysuria Medications: New ibuprofen 800 mg PO Q8H PRN 21 tabs 0RF pain 7 days Coding Level of Care Code Est Pt Level 3 (93613) Diagnoses Lumbar pain M54.50 Additional Codes MARLENE-7 Assessment Billing - MARLENE-7 Assessment Tool: MARLENE-7 Assessment 07053 ([id number]) Time Spent (min) 19
[2023-11-10 16:18] VITALS: BP 120/72; BMI 33.1
== END 2023-11-10 16:50 | disposition home or self-care (01) ==
PROVIDERS: PCP Internal Medicine; Visit Provider Internal Medicine
DX: M54.50 Low back pain, unspecified (principal)
CPT/HCPCS: 99213

== ENCOUNTER 2023-11-11 09:21 | Outpatient (REF) | payer OTHER, SELFPAY ==
[2023-11-11 11:18] LABS: Appearance Urine Clear; Color Urine Yellow; Glucose Urine UA Negative (Negative); Leukocyte Esterase Urine Negative (Negative); Nitrite Urine Negative (Negative); Specific Gravity - Urine >= 1.030 (1.005-1.025); UMIC TRIGGER UACC YES; Urine Blood Trace (Negative); Urine Ketones Negative (Negative); Urine Protein Negative (Neg-Trace)
[2023-11-11 11:25] LABS: Bacteria Urine 3+ (None Seen); Hyaline Casts Urine 0-2 /LPF (0-2); RBC Urine 0-2 /HPF (0-2); UACC Culture Trigger YES
== END 2023-11-11 09:22 | disposition home or self-care (01) ==
LOC: HO.LAB 09:21
PROVIDERS: PCP Internal Medicine; Visit Provider Internal Medicine
DX: R30.0 Dysuria (principal)
CPT/HCPCS: 81001; 87086; 87088; 87186

== ENCOUNTER 2024-05-03 13:23 | Outpatient (REF) | payer OTHER, SELFPAY ==
[2024-05-03 17:29] LABS: Appearance Urine Clear; Color Urine Yellow; Glucose Urine UA Negative (Negative); Leukocyte Esterase Urine Moderate (2+) (Negative); Nitrite Urine Negative (Negative); UMIC TRIGGER UACC YES; Urine Blood Moderate (2+) (Negative); Urine Ketones Negative (Negative); Urine Protein Negative (Neg-Trace)
[2024-05-03 17:46] LABS: Bacteria Urine None Seen (None Seen); Hyaline Casts Urine 0-2 /LPF (0-2); Squamous Epithelial Cell Urine 0-2 /HPF (0-2); UACC Culture Trigger YES; WBC Urine >50 /HPF (0-5)
== END 2024-05-03 13:24 | disposition home or self-care (01) ==
LOC: HO.LAB 13:23
PROVIDERS: PCP Internal Medicine; Visit Provider Internal Medicine
DX: R30.0 Dysuria (principal)
CPT/HCPCS: 81001; 87086

== ENCOUNTER 2024-06-15 14:09 | Outpatient (AMB) | payer OTHER, SELFPAY ==
[2024-06-15 14:53] VITALS: BP 100/70; PULSE 87; TEMP 36.9; O2SAT 96; BMI 31.1
--- NOTE | 2024-06-15 14:53 | AM.OFFWIN_ITS ---
Intake Vital Signs 06/15/24 14:53 Height 4 ft 11 in Weight 154 lb BMI 31.1 BP 100/70 Blood Pressure Location Lt brachial Position Sitting Pulse 87 Pulse Source Pulse Oximeter Temp 98.4 F Temp Source Oral Pulse Oximetry (%) 96 Oxygen Delivery Method Room Air Intake Visit Reasons: EP- RT ear pain, LT not as bad as RT Intake Note: Pt is here today c.o bilateral ear pain x3days Patient Tobacco Use Status: Never used Tobacco Allergies No Known Allergies Allergy (Verified 06/15/24 14:55) Do you need a note to return to daycare/school/sports/work: Yes HPI HPI Comments History of Present Illness Details Patient is a 39-year-old female complaining of right ear pain, she also states her left ear hurts but it is not as bad as the right. She states on the right side of her face was hurting, she had pain with swallowing on the right side and she did have a sore throat a few days ago but that seems to have cleared up however the pain in her right ear is lingering. She states she has a little bit of reduced hearing but then it comes back and it just feels like it is ringing. She denies any fevers. [facility], [facility] Medical History COVID-19 vaccine series completed Bradycardia Abdominal pain Class 1 obesity with body mass index (BMI) of 31.0 to 31.9 in adult Allergic reaction Surgical History History of ERCP History of cholecystectomy Family History Mother No problems noted. Father No problems noted. Social History Household Members: Children Housing: Apartment Are you a primary health care attorney to a significant other at home: No Do you presently have visiting nurse or other home services: No Alcohol intake: never Patient Tobacco Use Status: Never used Tobacco e-Cigarette/Vaping Use: Never Used Second Hand Smoke Exposure: No service: No Current occupational status: employed Current occupational exposures/hazards: No Cognitive needs: No Hearing needs: No Vision needs: No Review of Systems Const All systems reviewed & are unremarkable except as noted in HPI and below Physical Exam Vital Signs: Last Vital Signs Temp 98.4 F 06/15/24 14:53 Pulse 87 06/15/24 14:53 BP 100/70 06/15/24 14:53 Pulse Ox 96 06/15/24 14:53 Oxygen Delivery Method Room Air 06/15/24 14:53 BMI result Body Mass Index 31.1 Const General: cooperative, healthy appearing, comfortable and no acute distress Orientation/consciousness: patient oriented x3 HEENT Head: Yes normal to inspection, Yes No palpable skull fracture present and Yes normocephalic Ears: hearing grossly normal bilaterally, external ears normal, mastoids normal (no TTP) bilaterally, Abnormal EAC present excessive cerumen on the left, TM abnormal (right) wth effusion and erythematous and unable to visualize TM on the left General nose exam: Normal external nose present Face and sinus: Yes normal facial exam Mouth: Normal oral and palatal mucosa present Teeth and gingiva: dentition normal Throat: Yes posterior oropharynx abnormal (Erythema) Eyes General: appearance normal, both eyes and all related structures Neck Neck: Yes normal visual inspection, Yes full ROM, Yes no lymphadenopathy, Yes no meningeal signs, Yes trachea midline and Yes supple Resp Effort & Inspection: normal respiratory effort and able to speak in complete sentences Skin General skin exam: no rashes or lesions noted Neuro General: patient oriented x3 and no meningeal signs Assessment & Plan Assessment & Plan (1) Otitis media: Code(s): H66.90 - Otitis media, unspecified, unspecified ear Qualifiers: Otitis media type: suppurative Chronicity: acute Laterality: right Recurrence: non-recurrent Spontaneous tympanic membrane rupture: without spontaneous rupture Qualified Code(s): H66.001 - Acute suppurative otitis media without spontaneous rupture of ear drum, right ear Plan: Sent amoxicillin to pharmacy Plan See above Medications: New amoxicillin 875 mg PO Q12H 10 tabs 0RF Coding Level of Care Code Est Pt Level 3 (50341) Diagnoses Non-recurrent acute suppurative otitis media of right ear without spontaneous rupture of tympanic membrane H66.001 Otitis media type: suppurative Chronicity: acute Laterality: right Recurrence: non-recurrent Spontaneous tympanic membrane rupture: without spontaneous rupture
== END 2024-06-15 15:11 | disposition home or self-care (01) ==
PROVIDERS: PCP Internal Medicine; Visit Provider Physician Assistant
DX: H66.001 Acute suppurative otitis media without spontaneous rupture of ear drum, right ear (principal)
CPT/HCPCS: 99213